=== PATIENT | male | born 1990 | race African-American/Black ===

== ENCOUNTER 2019-01-24 08:40 | Inpatient (IN) | payer MEDICARE, OTHER ==
[~2019-01-24] VITALS: Ht 175.3 cm; Wt 82.3 kg
[2019-01-24 09:30] LABS: BASOPHILS % 0.2 % (0.0-2.0); EOSINOPHILS % 0.1 % (0.0-5.0); HEMATOCRIT. 39.5 % (42.0-52.0); LYMPHOCYTES % 10.6 % (20.0-50.0); MEAN CORPUSCULAR HEMOGLOBIN 26.6 pg (28.0-32.0); MEAN CORPUSCULAR VOLUME 81.1 fL (80.0-94.0); MEAN PLATELET VOLUME 7.5 fl (7.4-10.4); MONOCYTES % 6.8 % (2.0-8.0); NEUTROPHILS % 82.3 % (40.0-76.0); PLATELET 264 x1000/uL (130-400); RED BLOOD CELL COUNT 4.88 mill/uL (4.7-6.1); RED CELL DISTRIBUTION WIDTH 15.2 % (11.6-14.6)
[2019-01-24 09:33] LABS: CHLORIDE 101 mEq/L (98-107)
[2019-01-24 10:43] LABS: BG BASE EXCESS 4.4 mmol/L (-2.0-2.0); BG CARBOXYHEMOGLOBIN 0.3 % (0.5-1.5); BG DEOXYHEMOGLOBIN 10.8 % (0.0-5.0); BG FRACTION INSPIRED OXYGEN 32; BG HCO3 ACT 29.3 mmol/L (22.0-26.0); BG METHEMOGLOBIN 0.6 % (0.0-1.5); BG OXYGEN SATURATION 89.1 % (92.0-98.5); BG OXYHEMOGLOBIN 88.3 % (94.0-97.0); BG PCO2 45.1 mmHg (35.0-45.0); BG PH 7.431 (7.350-7.450); BG SAMPLE SITE RIGHT RADIAL; BG TOTAL HEMOGLOBIN 13.4 g/dL (12.0-18.0); BG VENT MODE NASAL CANNULA
[2019-01-24] MEDS ORDERED: LEVOFLOXACIN 750MG PREMIX 150 ML IV ONE (12:15)
[2019-01-24] MEDS ORDERED: IOHEXOL-350 100 ML BOTTLE ONE (12:32)
[2019-01-24] MEDS ORDERED: IPRATROPIUM/ALBUTEROL 0.5-3(2.5)MG/3ML NEB INH PRN (14:30)
[2019-01-24] MEDS ORDERED: TRAMADOL 50MG TABLET PO PRN (14:30)
[2019-01-24] MEDS ORDERED: GUAIFENESIN 200MG/10ML SUGAR FREE UDC PO PRN (14:30)
[2019-01-24] MEDS ORDERED: DOCUSATE SODIUM 100MG CAPSULE PO PRN (14:30)
[2019-01-24] MEDS ORDERED: CLONIDINE 0.1MG TABLET PO PRN (14:30)
[2019-01-24] MEDS ORDERED: ZOLPIDEM TARTRATE 5MG TABLET PO PRN (14:30)
[2019-01-24] MEDS ORDERED: MORPHINE SULFATE 4 MG/ML CPJ (NOT FOR IM USE) IV PRN (14:30)
[2019-01-24] MEDS ORDERED: NITROGLYCERIN 0.4MG TABLET SL SL PRN (14:30)
[2019-01-24] MEDS ORDERED: MAGNESIUM/ALUMINUM HYDROXIDE/SIMETHICONE 30ML UDC PO PRN (14:30)
[2019-01-24] MEDS ORDERED: ACETAMINOPHEN 325MG TABLET PO PRN (14:30)
[2019-01-24] MEDS ORDERED: ONDANSETRON HCL 4MG/2ML INJ IV PRN (14:30)
[2019-01-24 15:56] LABS: FOLIC ACID (FOLATE) SERUM 5.5 ng/mL (>5.38)
[2019-01-24] MEDS ORDERED: VANCOMYCIN 1,250 MG in DEXT 5% WATER 250 ML IV SCH (18:00)
[2019-01-24 20:00] VITALS: BP 119/61
[2019-01-24] MEDS: ENOXAPARIN 40MG/0.4ML SYR SUBCUT SCH (20:58)
[2019-01-24] MEDS: FAMOTIDINE 20MG TABLET PO SCH (20:59)
[2019-01-24] MEDS: ASCORBIC ACID 500 MG TABLET PO SCH (20:59)
[2019-01-24] MEDS: GUAIFENESIN/DM 600MG/30MG ER TAB 12HR PO SCH (20:59)
[2019-01-24 22:00] VITALS: BP 116/64
[2019-01-24] MEDS: PIPERACILLIN/TAZ 3.375G PREMIX 50 ML IV SCH (22:54)
[2019-01-25] VITALS (11 sets, daily range): BP systolic 90–132; BP diastolic 51–99
[2019-01-25 00:17] LABS: CREATINE KINASE 426 IU/L (39-308)
[2019-01-25 00:18] LABS: CREATINE KINASE MB FRACTION 30.8 ng/mL (0.5-3.6)
[2019-01-25] MEDS: IPRATROPIUM/ALBUTEROL 0.5-3(2.5)MG/3ML NEB HHN SCH ×6 (00:24→19:49)
[2019-01-25] MEDS: VANCOMYCIN 1 G PREMIX 200 ML IV SCH ×2 (04:11→14:09)
[2019-01-25] MEDS: PIPERACILLIN/TAZ 3.375G PREMIX 50 ML IV SCH ×3 (06:21→21:40)
[2019-01-25 07:41] LABS: CREATINE KINASE 236 IU/L (39-308)
[2019-01-25 07:42] LABS: CREATINE KINASE MB FRACTION 18.5 ng/mL (0.5-3.6)
[2019-01-25] MEDS: FAMOTIDINE 20MG TABLET PO SCH ×2 (09:35→21:40)
[2019-01-25] MEDS: GUAIFENESIN/DM 600MG/30MG ER TAB 12HR PO SCH ×2 (09:35→21:40)
[2019-01-25] MEDS: ASCORBIC ACID 500 MG TABLET PO SCH ×2 (09:35→21:40)
[2019-01-25] MEDS: ZINC SULFATE 220 MG ( 50 ) CAPSULE PO SCH (09:35)
[2019-01-25] MEDS: ACETYLCYSTEINE 100MG/ML 10% VIAL 4ML INH SCH ×2 (15:16→23:59)
[2019-01-25] MEDS: ENOXAPARIN 40MG/0.4ML SYR SUBCUT SCH (17:24)
[2019-01-26] VITALS (12 sets, daily range): BP systolic 91–136; BP diastolic 47–94
[2019-01-26] MEDS: IPRATROPIUM/ALBUTEROL 0.5-3(2.5)MG/3ML NEB HHN SCH ×5 (00:01→15:45)
[2019-01-26] MEDS: PIPERACILLIN/TAZ 3.375G PREMIX 50 ML IV SCH ×3 (05:26→21:21)
[2019-01-26] MEDS ORDERED: VANCOMYCIN 1 G PREMIX 200 ML IV PRN (06:00)
[2019-01-26 06:05] LABS: BASOPHILS % 0.2 % (0.0-2.0); EOSINOPHILS % 0.1 % (0.0-5.0); HEMATOCRIT. 33.2 % (42.0-52.0); LYMPHOCYTES % 8.3 % (20.0-50.0); MEAN CORPUSCULAR HEMOGLOBIN 26.4 pg (28.0-32.0); MEAN CORPUSCULAR VOLUME 79.8 fL (80.0-94.0); MEAN PLATELET VOLUME 7.6 fl (7.4-10.4); MONOCYTES % 8.5 % (2.0-8.0); NEUTROPHILS % 82.9 % (40.0-76.0); PLATELET 268 x1000/uL (130-400); RED BLOOD CELL COUNT 4.17 mill/uL (4.7-6.1); RED CELL DISTRIBUTION WIDTH 15.3 % (11.6-14.6)
[2019-01-26 06:23] LABS: CHLORIDE 99 mEq/L (98-107)
[2019-01-26] MEDS: ACETYLCYSTEINE 100MG/ML 10% VIAL 4ML INH SCH ×2 (07:54→15:46)
[2019-01-26] MEDS: GUAIFENESIN/DM 600MG/30MG ER TAB 12HR PO SCH ×2 (09:59→21:20)
[2019-01-26] MEDS: ASCORBIC ACID 500 MG TABLET PO SCH ×2 (09:59→21:20)
[2019-01-26] MEDS: ZINC SULFATE 220 MG ( 50 ) CAPSULE PO SCH (09:59)
[2019-01-26] MEDS: FAMOTIDINE 20MG TABLET PO SCH ×2 (09:59→21:20)
[2019-01-26] MEDS ORDERED: BARIUM SULFATE 176 GM SUSP.RECON ONE (13:43)
[2019-01-26] MEDS ORDERED: SODIUM CHLORIDE 0.9% 1000ML BAG (SEPSIS BOLUS) IV ONE (15:30)
[2019-01-26] MEDS: VANCOMYCIN 750 MG PREMIX 150 ML IV SCH (16:42)
[2019-01-26] MEDS: ENOXAPARIN 40MG/0.4ML SYR SUBCUT SCH (18:55)
[2019-01-26] MEDS: KETOROLAC 15MG/ML VIAL IV PRN (20:07)
[2019-01-27] VITALS (17 sets, daily range): BP systolic 110–144; BP diastolic 53–92
[2019-01-27] MEDS: IPRATROPIUM/ALBUTEROL 0.5-3(2.5)MG/3ML NEB HHN SCH ×4 (01:36→20:10)
[2019-01-27] MEDS: ACETYLCYSTEINE 100MG/ML 10% VIAL 4ML INH SCH ×4 (01:37→20:10)
[2019-01-27] MEDS: VANCOMYCIN 750 MG PREMIX 150 ML IV SCH ×2 (02:03→13:15)
[2019-01-27] MEDS: PIPERACILLIN/TAZ 3.375G PREMIX 50 ML IV SCH ×3 (05:39→21:06)
[2019-01-27 07:09] LABS: CHLORIDE 104 mEq/L (98-107)
[2019-01-27] MEDS: GUAIFENESIN/DM 600MG/30MG ER TAB 12HR PO SCH ×2 (08:14→20:49)
[2019-01-27] MEDS: FAMOTIDINE 20MG TABLET PO SCH ×2 (08:14→20:49)
[2019-01-27] MEDS: ZINC SULFATE 220 MG ( 50 ) CAPSULE PO SCH (08:14)
[2019-01-27] MEDS: ASCORBIC ACID 500 MG TABLET PO SCH ×2 (08:14→20:49)
[2019-01-27] MEDS: ENOXAPARIN 40MG/0.4ML SYR SUBCUT SCH (17:11)
[2019-01-27] MEDS: VANCOMYCIN 1 G PREMIX 200 ML IV SCH (23:30)
[2019-01-28] VITALS (12 sets, daily range): BP systolic 112–146; BP diastolic 75–96
[2019-01-28] MEDS: IPRATROPIUM/ALBUTEROL 0.5-3(2.5)MG/3ML NEB HHN SCH ×5 (00:05→16:52)
[2019-01-28] MEDS: ACETYLCYSTEINE 100MG/ML 10% VIAL 4ML INH SCH ×3 (00:29→16:52)
[2019-01-28] MEDS: PIPERACILLIN/TAZ 3.375G PREMIX 50 ML IV SCH ×3 (05:31→21:31)
[2019-01-28] MEDS: ASCORBIC ACID 500 MG TABLET PO SCH ×2 (09:17→21:30)
[2019-01-28] MEDS: KETOROLAC 15MG/ML VIAL IV PRN (09:17)
[2019-01-28] MEDS: ZINC SULFATE 220 MG ( 50 ) CAPSULE PO SCH (09:17)
[2019-01-28] MEDS: GUAIFENESIN/DM 600MG/30MG ER TAB 12HR PO SCH ×2 (09:17→21:30)
[2019-01-28] MEDS: FAMOTIDINE 20MG TABLET PO SCH ×2 (09:17→21:30)
[2019-01-28] MEDS: ENOXAPARIN 40MG/0.4ML SYR SUBCUT SCH (17:45)
[2019-01-28] MEDS: VANCOMYCIN 1 G PREMIX 200 ML IV SCH (23:45)
[2019-01-29] VITALS (12 sets, daily range): BP systolic 106–148; BP diastolic 47–96
[2019-01-29] MEDS: IPRATROPIUM/ALBUTEROL 0.5-3(2.5)MG/3ML NEB HHN SCH ×6 (00:29→20:45)
[2019-01-29] MEDS: PIPERACILLIN/TAZ 3.375G PREMIX 50 ML IV SCH ×3 (05:55→20:52)
[2019-01-29] MEDS: ASCORBIC ACID 500 MG TABLET PO SCH ×2 (08:57→20:51)
[2019-01-29] MEDS: ZINC SULFATE 220 MG ( 50 ) CAPSULE PO SCH (08:57)
[2019-01-29] MEDS: GUAIFENESIN/DM 600MG/30MG ER TAB 12HR PO SCH ×2 (08:57→20:51)
[2019-01-29] MEDS: FAMOTIDINE 20MG TABLET PO SCH ×2 (08:57→20:51)
[2019-01-29] MEDS: ACETYLCYSTEINE 100MG/ML 10% VIAL 4ML INH SCH ×2 (09:10→17:04)
[2019-01-29] MEDS: ENOXAPARIN 40MG/0.4ML SYR SUBCUT SCH (18:21)
[2019-01-30] VITALS (11 sets, daily range): BP systolic 117–154; BP diastolic 65–92
[2019-01-30] MEDS: VANCOMYCIN 1 G PREMIX 200 ML IV SCH (00:03)
[2019-01-30] MEDS: ACETYLCYSTEINE 100MG/ML 10% VIAL 4ML INH SCH ×3 (00:34→16:06)
[2019-01-30] MEDS: IPRATROPIUM/ALBUTEROL 0.5-3(2.5)MG/3ML NEB HHN SCH ×5 (00:34→16:07)
[2019-01-30] MEDS: PIPERACILLIN/TAZ 3.375G PREMIX 50 ML IV SCH ×2 (06:38→15:57)
[2019-01-30 07:06] LABS: BASOPHILS % 0.4 % (0.0-2.0); EOSINOPHILS % 1.1 % (0.0-5.0); HEMATOCRIT. 37.1 % (42.0-52.0); HEMOGLOBIN. 12.2 g/dL (14.0-18.0); LYMPHOCYTES % 19.8 % (20.0-50.0); MEAN CORPUSCULAR HEMOGLOBIN 26.3 pg (28.0-32.0); MEAN CORPUSCULAR VOLUME 80.1 fL (80.0-94.0); MEAN PLATELET VOLUME 6.7 fl (7.4-10.4); MONOCYTES % 6.7 % (2.0-8.0); PLATELET 298 x1000/uL (130-400); RED BLOOD CELL COUNT 4.63 mill/uL (4.7-6.1); RED CELL DISTRIBUTION WIDTH 15.3 % (11.6-14.6)
[2019-01-30 07:32] LABS: CHLORIDE 106 mEq/L (98-107)
[2019-01-30] MEDS: FAMOTIDINE 20MG TABLET PO SCH (08:38)
[2019-01-30] MEDS: GUAIFENESIN/DM 600MG/30MG ER TAB 12HR PO SCH (08:38)
[2019-01-30] MEDS: ZINC SULFATE 220 MG ( 50 ) CAPSULE PO SCH (08:38)
[2019-01-30] MEDS: ASCORBIC ACID 500 MG TABLET PO SCH (08:38)
[2019-01-30] MEDS ORDERED: LEVO250T58 PO (19:41)
[2019-01-30] MEDS ORDERED: PROSOL IH (19:42)
[2019-01-30] MEDS ORDERED: METR250T36 PO (19:42)
== END 2019-01-30 17:18 | disposition home or self-care (01) | DRG 871 ==
LOC: ER 08:40 → SUPCPDRO 14:23 → 5EST 15:00 → ENRESERV 15:53 → 5EST 18:13
PROVIDERS: ADMIT Internal Medicine; ATTEND Internal Medicine
DX: A41.9 Sepsis, unspecified organism (principal); J69.0 Pneumonitis due to inhalation of food and vomit; J96.00 Acute respiratory failure, unspecified whether with hypoxia or hypercapnia; E44.0 Moderate protein-calorie malnutrition; J90 Pleural effusion, not elsewhere classified; D63.8 Anemia in other chronic diseases classified elsewhere; E86.0 Dehydration; G71.00 Muscular dystrophy, unspecified; R13.10 Dysphagia, unspecified; Z99.3 Dependence on wheelchair; Z68.26 Body mass index [BMI] 26.0-26.9, adult
CPT/HCPCS: 36415; 36600; 71045; 71275; 74230; 80048; 80061; 80202; 82375; 82550; 82553; 82607; 82746; 82805; 83036; 83540; 83550; 83880; 84484; 85379; 87804; 92610; 92611; 93005; 93306; 93970; 93971; 94640; 94667; 96365; 96366; 97162; 99285; J1650; J1885; J1956; J2405; J2543; J3370; J7050; J7060; J7608; J7620; Q9967

== ENCOUNTER 2019-01-30 19:34 | Inpatient (IN) | payer MEDICARE, OTHER ==
[~2019-01-30] VITALS: Ht 182.9 cm; Wt 99.9 kg
[2019-01-30] MEDS ORDERED: LEVO250T58 PO (19:41)
[2019-01-30] MEDS ORDERED: PROSOL IH (19:42)
[2019-01-30] MEDS ORDERED: METR250T36 PO (19:42)
[2019-01-30] MEDS ORDERED: METHYLPREDNISOLONE SOD SUCC 125 MG/2 ML VIAL IV STA (23:20)
[2019-01-30] MEDS ORDERED: SODIUM CHLORIDE 0.9% 1,000 ML IV ONE (23:20)
[2019-01-30] MEDS ORDERED: LEVOFLOXACIN 750MG PREMIX 150 ML IV ONE (23:30)
[2019-01-30] MEDS ORDERED: IPRATROPIUM/ALBUTEROL 0.5-3(2.5)MG/3ML NEB HHN ONE (23:30)
[2019-01-30 23:55] LABS: BG BASE EXCESS 4.7 mmol/L (-2.0-2.0); BG CARBOXYHEMOGLOBIN 0.7 % (0.5-1.5); BG DEOXYHEMOGLOBIN 6.6 % (0.0-5.0); BG FRACTION INSPIRED OXYGEN 21; BG METHEMOGLOBIN 0.5 % (0.0-1.5); BG OXYGEN SATURATION 93.3 % (92.0-98.5); BG OXYHEMOGLOBIN 92.2 % (94.0-97.0); BG PCO2 37.1 mmHg (35.0-45.0); BG PH 7.495 (7.350-7.450); BG PO2 64.2 mmHg (75.0-100.0); BG SAMPLE SITE RIGHT RADIAL; BG TOTAL HEMOGLOBIN 14.4 g/dL (12.0-18.0); BG VENT MODE ROOM AIR
[2019-01-31 01:07] LABS: BASOPHILS % 0.5 % (0.0-2.0); EOSINOPHILS % 0.6 % (0.0-5.0); LYMPHOCYTES % 10.2 % (20.0-50.0); MEAN CORPUSCULAR HEMOGLOBIN 26.1 pg (28.0-32.0); MEAN CORPUSCULAR VOLUME 80.6 fL (80.0-94.0); MEAN PLATELET VOLUME 6.7 fl (7.4-10.4); MONOCYTES % 6.1 % (2.0-8.0); NEUTROPHILS % 82.6 % (40.0-76.0); PLATELET 352 x1000/uL (130-400); RED BLOOD CELL COUNT 4.22 mill/uL (4.7-6.1); RED CELL DISTRIBUTION WIDTH 15.3 % (11.6-14.6)
[2019-01-31 01:15] LABS: INR 1.1; PROTHROMBIN TIME 10.7 sec (9.1-11.1)
[2019-01-31 01:26] LABS: CHLORIDE 107 mEq/L (98-107)
[2019-01-31 02:56] LABS: CLARITY URINE CLOUDY (CLEAR); COLOR URINE YELLOW (YELLOW); KETONES URINE NEGATIVE (NEGATIVE); LEUKOCYTE ESTERASE URINE NEGATIVE (NEGATIVE); NITRITE URINE NEGATIVE (NEGATIVE); OCCULT BLOOD URINE NEGATIVE (NEGATIVE); PH URINE 5.5 (4.5-8.0); PROTEIN URINE NEGATIVE (NEGATIVE); SPECIFIC GRAVITY URINE 1.013 (1.005-1.030); UROBILINOGEN URINE 0.2 E.U./dL (0.2-1.0)
[2019-01-31] MEDS ORDERED: TRAMADOL 50MG TABLET PO PRN (10:15)
[2019-01-31] MEDS ORDERED: PIPERACILLIN/TAZ 3.375G PREMIX 50 ML IV SCH ×3 (10:15→19:00)
[2019-01-31] MEDS ORDERED: MAGNESIUM/ALUMINUM HYDROXIDE/SIMETHICONE 30ML UDC PO PRN (10:15)
[2019-01-31] MEDS ORDERED: ONDANSETRON HCL 4MG/2ML INJ IV PRN (10:15)
[2019-01-31] MEDS ORDERED: DOCUSATE SODIUM 100MG CAPSULE PO PRN (10:15)
[2019-01-31] MEDS ORDERED: ZOLPIDEM TARTRATE 5MG TABLET PO PRN (10:15)
[2019-01-31] MEDS ORDERED: ACETAMINOPHEN 325MG TABLET PO PRN (10:15)
[2019-01-31] MEDS ORDERED: IPRATROPIUM/ALBUTEROL 0.5-3(2.5)MG/3ML NEB INH PRN (10:15)
[2019-01-31] MEDS ORDERED: GUAIFENESIN 200MG/10ML SUGAR FREE UDC PO PRN (10:15)
[2019-01-31] MEDS: GUAIFENESIN/DM 600MG/30MG ER TAB 12HR PO SCH ×3 (11:30→19:06)
[2019-01-31] MEDS: ENOXAPARIN 40MG/0.4ML SYR SUBCUT SCH (11:50)
[2019-01-31] MEDS: FAMOTIDINE 20MG TABLET PO SCH ×2 (11:52→23:58)
[2019-01-31] MEDS: SODIUM CHLORIDE 0.9% 1,000 ML IV SCH ×2 (13:14→23:59)
[2019-01-31 16:09] LABS: CREATINE KINASE 680 IU/L (39-308)
[2019-01-31 16:10] LABS: CREATINE KINASE MB FRACTION 19.6 ng/mL (0.5-3.6)
[2019-01-31] MEDS: IPRATROPIUM/ALBUTEROL 0.5-3(2.5)MG/3ML NEB HHN SCH (21:24)
[2019-01-31 22:35] VITALS: BP_SYST 157; BP_SYST 57; BP_DIAS 86
[2019-01-31] MEDS: GUAIFENESIN 600MG ER TABLET PO SCH (23:58)
[2019-01-31] MEDS: ASCORBIC ACID 500 MG TABLET PO SCH (23:59)
[2019-01-31] MEDS: CLONIDINE 0.1MG TABLET PO PRN (23:59)
[2019-02-01] VITALS (7 sets, daily range): BP systolic 100–159; BP diastolic 65–95
[2019-02-01 01:00] LABS: CREATINE KINASE MB FRACTION 20.6 ng/mL (0.5-3.6)
[2019-02-01] MEDS: IPRATROPIUM/ALBUTEROL 0.5-3(2.5)MG/3ML NEB HHN SCH ×6 (01:07→21:16)
[2019-02-01] MEDS: PIPERACILLIN/TAZ 3.375G PREMIX 50 ML IV SCH ×4 (01:23→23:05)
[2019-02-01] MEDS: GUAIFENESIN 600MG ER TABLET PO SCH ×2 (09:13→20:24)
[2019-02-01] MEDS: FAMOTIDINE 20MG TABLET PO SCH ×2 (09:13→20:24)
[2019-02-01] MEDS: ZINC SULFATE 220 MG ( 50 ) CAPSULE PO SCH (09:13)
[2019-02-01] MEDS: ASCORBIC ACID 500 MG TABLET PO SCH ×2 (09:13→20:24)
[2019-02-01] MEDS: ENOXAPARIN 40MG/0.4ML SYR SUBCUT SCH (09:13)
[2019-02-01] MEDS ORDERED: VANCOMYCIN 1500MG in DEXTROSE 5% WATER 250ML IV SCH (14:00)
[2019-02-01] MEDS: SODIUM CHLORIDE 0.9% 1,000 ML IV SCH (14:27)
[2019-02-01] MEDS: CLONIDINE 0.1MG TABLET PO PRN (20:24)
[2019-02-02] MEDS: IPRATROPIUM/ALBUTEROL 0.5-3(2.5)MG/3ML NEB HHN SCH ×6 (00:59→21:21)
[2019-02-02 03:50] VITALS: BP 127/84
[2019-02-02] MEDS: SODIUM CHLORIDE 0.9% 1,000 ML IV SCH ×2 (05:48→20:28)
[2019-02-02 08:00] VITALS: BP 136/90
[2019-02-02] MEDS: PIPERACILLIN/TAZ 3.375G PREMIX 50 ML IV SCH ×3 (08:00→23:43)
[2019-02-02] MEDS: ASCORBIC ACID 500 MG TABLET PO SCH ×2 (09:21→20:23)
[2019-02-02] MEDS: FAMOTIDINE 20MG TABLET PO SCH ×2 (09:21→20:23)
[2019-02-02] MEDS: ZINC SULFATE 220 MG ( 50 ) CAPSULE PO SCH (09:21)
[2019-02-02] MEDS: GUAIFENESIN 600MG ER TABLET PO SCH ×2 (09:21→20:23)
[2019-02-02] MEDS: ENOXAPARIN 40MG/0.4ML SYR SUBCUT SCH (09:21)
[2019-02-02] MEDS: VANCOMYCIN 1 G PREMIX 200 ML IV SCH (09:24)
[2019-02-02 12:00] VITALS: BP 138/104
[2019-02-02 16:06] VITALS: BP 158/93
[2019-02-02 20:00] VITALS: BP 159/96
[2019-02-03] VITALS: BP 159/92
[2019-02-03] MEDS: IPRATROPIUM/ALBUTEROL 0.5-3(2.5)MG/3ML NEB HHN SCH ×6 (01:05→21:05)
[2019-02-03 04:00] VITALS: BP 150/90
[2019-02-03 08:00] VITALS: BP 145/82
[2019-02-03] MEDS: ENOXAPARIN 40MG/0.4ML SYR SUBCUT SCH (08:00)
[2019-02-03] MEDS: GUAIFENESIN 600MG ER TABLET PO SCH ×2 (08:01→09:37)
[2019-02-03] MEDS: ASCORBIC ACID 500 MG TABLET PO SCH ×2 (08:01→09:37)
[2019-02-03] MEDS: PIPERACILLIN/TAZ 3.375G PREMIX 50 ML IV SCH ×3 (08:01→23:03)
[2019-02-03] MEDS: FAMOTIDINE 20MG TABLET PO SCH ×2 (08:04→09:37)
[2019-02-03] MEDS: ZINC SULFATE 220 MG ( 50 ) CAPSULE PO SCH ×2 (08:04→09:38)
[2019-02-03] MEDS: VANCOMYCIN 1 G PREMIX 200 ML IV SCH (09:35)
[2019-02-03] MEDS: SODIUM CHLORIDE 0.9% 1,000 ML IV SCH (11:45)
[2019-02-03 12:00] VITALS: BP 146/83
[2019-02-03] MEDS ORDERED: DIATR MEGLU/DIATRIZOATE SOLN 30ML ONE (16:11)
[2019-02-03 20:00] VITALS: BP 132/72
[2019-02-04] VITALS: BP 127/65
[2019-02-04] MEDS: IPRATROPIUM/ALBUTEROL 0.5-3(2.5)MG/3ML NEB HHN SCH ×6 (00:44→21:59)
[2019-02-04] MEDS: SODIUM CHLORIDE 0.9% 1,000 ML IV SCH ×2 (03:20→20:32)
[2019-02-04 04:00] VITALS: BP 124/74
[2019-02-04 07:02] LABS: HEMATOCRIT. 34.7 % (42.0-52.0); HEMOGLOBIN. 11.3 g/dL (14.0-18.0); MEAN CORPUSCULAR VOLUME 81.2 fL (80.0-94.0); RED BLOOD CELL COUNT 4.28 mill/uL (4.7-6.1)
[2019-02-04 07:03] LABS: BASOPHILS % 0.3 % (0.0-2.0); EOSINOPHILS % 0.3 % (0.0-5.0); MEAN CORPUSCULAR HEMOGLOBIN 26.4 pg (28.0-32.0); MEAN PLATELET VOLUME 7.5 fl (7.4-10.4); MONOCYTES % 5.8 % (2.0-8.0); NEUTROPHILS % 84.6 % (40.0-76.0); PLATELET 468 x1000/uL (130-400); RED CELL DISTRIBUTION WIDTH 15.5 % (11.6-14.6)
[2019-02-04 07:07] LABS: CHLORIDE 120 mEq/L (98-107)
[2019-02-04] MEDS: PIPERACILLIN/TAZ 3.375G PREMIX 50 ML IV SCH ×3 (08:16→20:32)
[2019-02-04 08:20] VITALS: BP 123/74
[2019-02-04] MEDS: VANCOMYCIN 1 G PREMIX 200 ML IV SCH (09:04)
[2019-02-04] MEDS: FAMOTIDINE 20MG TABLET PO SCH ×2 (09:06→20:31)
[2019-02-04] MEDS: ENOXAPARIN 40MG/0.4ML SYR SUBCUT SCH (09:06)
[2019-02-04] MEDS: GUAIFENESIN 600MG ER TABLET PO SCH ×2 (09:06→20:31)
[2019-02-04] MEDS: ASCORBIC ACID 500 MG TABLET PO SCH ×2 (09:06→20:31)
[2019-02-04 12:00] VITALS: BP 144/90
[2019-02-04] MEDS: FLUCONAZOLE 100MG TABLET PO SCH (15:01)
[2019-02-04 16:00] VITALS: BP 128/83
[2019-02-04 20:00] VITALS: BP 134/84
[2019-02-05] VITALS: BP 131/79
[2019-02-05] MEDS: PIPERACILLIN/TAZ 3.375G PREMIX 50 ML IV SCH ×4 (02:33→22:48)
[2019-02-05 04:00] VITALS: BP 123/71
[2019-02-05 08:00] VITALS: BP 145/94
[2019-02-05] MEDS: IPRATROPIUM/ALBUTEROL 0.5-3(2.5)MG/3ML NEB HHN SCH ×4 (08:58→21:10)
[2019-02-05] MEDS ORDERED: VANCOMYCIN 1500MG in DEXTROSE 5% WATER 250ML IV SCH (09:00)
[2019-02-05] MEDS: GUAIFENESIN 600MG ER TABLET PO SCH ×2 (09:47→22:48)
[2019-02-05] MEDS: ASCORBIC ACID 500 MG TABLET PO SCH ×2 (09:47→22:48)
[2019-02-05] MEDS: FAMOTIDINE 20MG TABLET PO SCH ×2 (09:47→22:49)
[2019-02-05] MEDS: ZINC SULFATE 220 MG ( 50 ) CAPSULE PO SCH (09:48)
[2019-02-05] MEDS: ENOXAPARIN 40MG/0.4ML SYR SUBCUT SCH (09:48)
[2019-02-05] MEDS: FLUCONAZOLE 100MG TABLET PO SCH (09:50)
[2019-02-05 12:00] VITALS: BP 145/95
[2019-02-05] MEDS: CLONIDINE 0.1MG TABLET PO PRN (12:37)
[2019-02-05] MEDS: SODIUM CHLORIDE 0.9% 1,000 ML IV SCH (12:37)
[2019-02-05 16:00] VITALS: BP 138/88
[2019-02-05 20:58] VITALS: BP 146/98
[2019-02-06 00:29] VITALS: BP 135/78
[2019-02-06] MEDS: IPRATROPIUM/ALBUTEROL 0.5-3(2.5)MG/3ML NEB HHN SCH ×6 (00:31→20:44)
[2019-02-06] MEDS: SODIUM CHLORIDE 0.9% 1,000 ML IV SCH ×2 (01:52→18:59)
[2019-02-06 04:00] VITALS: BP 129/84
[2019-02-06] MEDS: PIPERACILLIN/TAZ 3.375G PREMIX 50 ML IV SCH ×4 (05:15→20:47)
[2019-02-06 08:00] VITALS: BP 134/84
[2019-02-06] MEDS: ENOXAPARIN 40MG/0.4ML SYR SUBCUT SCH (08:02)
[2019-02-06] MEDS: GUAIFENESIN 600MG ER TABLET PO SCH ×2 (08:03→20:47)
[2019-02-06] MEDS: ASCORBIC ACID 500 MG TABLET PO SCH ×2 (08:03→20:47)
[2019-02-06] MEDS: ZINC SULFATE 220 MG ( 50 ) CAPSULE PO SCH (08:03)
[2019-02-06] MEDS: FAMOTIDINE 20MG TABLET PO SCH ×2 (08:03→20:47)
[2019-02-06] MEDS: FLUCONAZOLE 100MG TABLET PO SCH (08:03)
[2019-02-06 12:00] VITALS: BP 143/87
[2019-02-06 16:00] VITALS: BP 142/87
[2019-02-06 20:00] VITALS: BP 148/89
[2019-02-07] VITALS (11 sets, daily range): BP systolic 113–166; BP diastolic 69–105
[2019-02-07] MEDS: IPRATROPIUM/ALBUTEROL 0.5-3(2.5)MG/3ML NEB HHN SCH ×6 (00:38→20:36)
[2019-02-07] MEDS: PIPERACILLIN/TAZ 3.375G PREMIX 50 ML IV SCH ×4 (03:09→21:38)
[2019-02-07] MEDS: SODIUM CHLORIDE 0.9% 1,000 ML IV SCH (05:45)
[2019-02-07] MEDS: FAMOTIDINE 20MG TABLET PO SCH ×2 (08:01→21:38)
[2019-02-07] MEDS: ZINC SULFATE 220 MG ( 50 ) CAPSULE PO SCH (08:01)
[2019-02-07] MEDS: FLUCONAZOLE 100MG TABLET PO SCH (08:01)
[2019-02-07] MEDS: GUAIFENESIN 600MG ER TABLET PO SCH ×2 (08:01→21:38)
[2019-02-07] MEDS: ASCORBIC ACID 500 MG TABLET PO SCH ×2 (08:01→21:38)
[2019-02-07] MEDS: ENOXAPARIN 40MG/0.4ML SYR SUBCUT SCH (08:02)
[2019-02-07 09:57] LABS: EOSINOPHILS % 0.4 % (0.0-5.0); HEMATOCRIT. 32.9 % (42.0-52.0); HEMOGLOBIN. 10.7 g/dL (14.0-18.0); LYMPHOCYTES % 12.8 % (20.0-50.0); MEAN CORPUSCULAR HEMOGLOBIN 26.3 pg (28.0-32.0); MEAN CORPUSCULAR VOLUME 80.7 fL (80.0-94.0); MEAN PLATELET VOLUME 7.4 fl (7.4-10.4); MONOCYTES % 6.3 % (2.0-8.0); NEUTROPHILS % 79.5 % (40.0-76.0); PLATELET 397 x1000/uL (130-400); RED BLOOD CELL COUNT 4.07 mill/uL (4.7-6.1); RED CELL DISTRIBUTION WIDTH 15.4 % (11.6-14.6)
[2019-02-07 10:04] LABS: CHLORIDE 122 mEq/L (98-107)
[2019-02-07] MEDS ORDERED: SODIUM CHLORIDE 10% FOR INH 15ML VIAL NEB INH SCH (10:30)
[2019-02-07 10:45] LABS: BG BASE EXCESS 3.5 mmol/L (-2.0-2.0); BG CARBOXYHEMOGLOBIN 0.3 % (0.5-1.5); BG DEOXYHEMOGLOBIN 1.8 % (0.0-5.0); BG FRACTION INSPIRED OXYGEN 28; BG HCO3 ACT 27.7 mmol/L (22.0-26.0); BG METHEMOGLOBIN 0.4 % (0.0-1.5); BG OXYGEN SATURATION 98.2 % (92.0-98.5); BG OXYHEMOGLOBIN 97.5 % (94.0-97.0); BG PCO2 40.6 mmHg (35.0-45.0); BG PH 7.452 (7.350-7.450); BG PO2 131.2 mmHg (75.0-100.0); BG SAMPLE SITE LEFT RADIAL; BG TOTAL HEMOGLOBIN 11.1 g/dL (12.0-18.0); BG VENT MODE ROOM AIR
[2019-02-07] MEDS ORDERED: VANCOMYCIN 1500MG in DEXTROSE 5% WATER 250ML IV NR (11:00)
[2019-02-07] MEDS ORDERED: POTASSIUM CHLORIDE 20MEQ/PACKET PO NR (13:15)
[2019-02-07] MEDS: CLONIDINE 0.1MG TABLET PO PRN (14:49)
[2019-02-07] MEDS ORDERED: POTASSIUM CHLORIDE INJ 40 MEQ in DEXT 5% WATER 250 ML IV ONE (15:00)
[2019-02-07 19:06] LABS: T4 FREE 1.42 ng/dL (0.76-1.46)
[2019-02-07 19:37] LABS: VITAMIN B12 SERUM >2000 pg/mL pg/mL (211-911)
[2019-02-08] VITALS (37 sets, daily range): BP systolic 99–162; BP diastolic 49–114
[2019-02-08] MEDS: IPRATROPIUM/ALBUTEROL 0.5-3(2.5)MG/3ML NEB HHN SCH ×6 (00:18→20:25)
[2019-02-08] MEDS: ZINC SULFATE 220 MG ( 50 ) CAPSULE PO SCH (10:12)
[2019-02-08] MEDS: GUAIFENESIN 600MG ER TABLET PO SCH (10:12)
[2019-02-08] MEDS: ASCORBIC ACID 500 MG TABLET PO SCH ×2 (10:12→21:07)
[2019-02-08] MEDS: ENOXAPARIN 40MG/0.4ML SYR SUBCUT SCH (10:13)
[2019-02-08] MEDS: FAMOTIDINE 20MG TABLET PO SCH ×2 (10:13→21:07)
[2019-02-08] MEDS: FLUCONAZOLE 100MG TABLET PO SCH (10:13)
[2019-02-08] MEDS ORDERED: POTASSIUM CHLORIDE 20MEQ/PACKET PO ONE (10:15)
[2019-02-08] MEDS: DEXTROSE 5% WATER 1,000 ML IV SCH ×2 (10:26→17:03)
[2019-02-08 10:45] LABS: BG CARBOXYHEMOGLOBIN 0.3 % (0.5-1.5); BG FRACTION INSPIRED OXYGEN 40; BG HCO3 ACT 26.4 mmol/L (22.0-26.0); BG METHEMOGLOBIN 0.2 % (0.0-1.5); BG OXYGEN SATURATION 83.9 % (92.0-98.5); BG OXYHEMOGLOBIN 83.5 % (94.0-97.0); BG PCO2 40.6 mmHg (35.0-45.0); BG PH 7.431 (7.350-7.450); BG PO2 47.5 mmHg (75.0-100.0); BG SAMPLE SITE RIGHT RADIAL; BG TOTAL HEMOGLOBIN 11.8 g/dL (12.0-18.0); BG VENT MODE NASAL CANNULA
[2019-02-08 13:23] LABS: BASOPHILS % 0.7 % (0.0-2.0); EOSINOPHILS % 0.4 % (0.0-5.0); HEMATOCRIT. 39.7 % (42.0-52.0); HEMOGLOBIN. 12.5 g/dL (14.0-18.0); LYMPHOCYTES % 11.7 % (20.0-50.0); MEAN CORPUSCULAR HEMOGLOBIN 26.1 pg (28.0-32.0); MEAN CORPUSCULAR VOLUME 82.9 fL (80.0-94.0); MEAN PLATELET VOLUME 8.6 fl (7.4-10.4); NEUTROPHILS % 81.2 % (40.0-76.0); PLATELET 474 x1000/uL (130-400); RED CELL DISTRIBUTION WIDTH 15.8 % (11.6-14.6)
[2019-02-08 13:33] LABS: CHLORIDE 122 mEq/L (98-107)
[2019-02-08] MEDS: CLONIDINE 0.1MG TABLET PO PRN (13:45)
[2019-02-08] MEDS ORDERED: GUAIFENESIN 600MG ER TABLET PO SCH (14:00)
[2019-02-08] MEDS ORDERED: VECURONIUM BROMIDE 10 MG/VIAL IV ONE (15:21)
[2019-02-08] MEDS ORDERED: ETOMIDATE 2MG/ML 10ML VIAL IV ONE (15:21)
[2019-02-08] MEDS: SODIUM CHLORIDE 3% FOR INH 4ML UD NEB INH SCH (15:49)
[2019-02-08] MEDS: ACETYLCYSTEINE 100MG/ML 10% VIAL 4ML INH SCH (16:03)
[2019-02-08 16:15] LABS: BG BASE EXCESS 0.7 mmol/L (-2.0-2.0); BG CARBOXYHEMOGLOBIN 0.3 % (0.5-1.5); BG DEOXYHEMOGLOBIN 8.1 % (0.0-5.0); BG FRACTION INSPIRED OXYGEN 100; BG HCO3 ACT 23.6 mmol/L (22.0-26.0); BG METHEMOGLOBIN 0.3 % (0.0-1.5); BG OXYGEN SATURATION 91.9 % (92.0-98.5); BG OXYHEMOGLOBIN 91.3 % (94.0-97.0); BG PCO2 32.4 mmHg (35.0-45.0); BG PH 7.481 (7.350-7.450); BG SAMPLE SITE LEFT RADIAL; BG TIDAL VOLUME(mL) 500 mL; BG VENT MODE VENT - A/C; BG VENT RATE 16 set
[2019-02-08] MEDS: PIPERACILLIN/TAZ 3.375G PREMIX 50 ML IV SCH ×2 (16:47→21:07)
[2019-02-08] MEDS: AMLODIPINE 5MG TABLET PO SCH (16:47)
[2019-02-08] MEDS: ATROPINE SULFATE 1% OPHTH 2ML SL SCH ×2 (16:48→22:39)
[2019-02-08 20:18] LABS: BG BASE EXCESS 1.1 mmol/L (-2.0-2.0); BG CARBOXYHEMOGLOBIN 0.3 % (0.5-1.5); BG FRACTION INSPIRED OXYGEN 100; BG METHEMOGLOBIN 0.3 % (0.0-1.5); BG OXYGEN SATURATION 81.9 % (92.0-98.5); BG OXYHEMOGLOBIN 81.4 % (94.0-97.0); BG PCO2 32.4 mmHg (35.0-45.0); BG PH 7.487 (7.350-7.450); BG PO2 43.1 mmHg (75.0-100.0); BG SAMPLE SITE LEFT RADIAL; BG TIDAL VOLUME(mL) 500 mL; BG TOTAL HEMOGLOBIN 11.8 g/dL (12.0-18.0); BG VENT MODE VENT - A/C; BG VENT RATE 16 set
[2019-02-08 20:28] LABS: CHLORIDE 119 mEq/L (98-107)
[2019-02-08] MEDS ORDERED: PHENYLEPHRINE 20 MG in DEXT 5% WATER 248 ML IV PRN (20:45)
[2019-02-08] MEDS: PROPOFOL 10MG/ML 100ML 100 ML IV PRN (20:47)
[2019-02-09] VITALS (71 sets, daily range): BP systolic 77–132; BP diastolic 41–85
[2019-02-09] MEDS: ACETYLCYSTEINE 100MG/ML 10% VIAL 4ML INH SCH ×3 (00:29→15:50)
[2019-02-09] MEDS: IPRATROPIUM/ALBUTEROL 0.5-3(2.5)MG/3ML NEB HHN SCH ×6 (00:29→19:58)
[2019-02-09] MEDS ORDERED: VANCOMYCIN 1500MG in DEXTROSE 5% WATER 250ML IV SCH (01:00)
[2019-02-09] MEDS: PROPOFOL 10MG/ML 100ML 100 ML IV PRN ×5 (01:33→23:37)
[2019-02-09] MEDS: PIPERACILLIN/TAZ 3.375G PREMIX 50 ML IV SCH ×2 (03:36→09:21)
[2019-02-09] MEDS: DEXTROSE 5% WATER 1,000 ML IV SCH ×2 (04:56→18:27)
[2019-02-09] MEDS: ATROPINE SULFATE 1% OPHTH 2ML SL SCH ×3 (05:19→21:26)
[2019-02-09 05:55] LABS: CHLORIDE 112 mEq/L (98-107)
[2019-02-09 08:25] LABS: BG BASE EXCESS 1.2 mmol/L (-2.0-2.0); BG CARBOXYHEMOGLOBIN 0.3 % (0.5-1.5); BG DEOXYHEMOGLOBIN 4.5 % (0.0-5.0); BG FRACTION INSPIRED OXYGEN 100; BG HCO3 ACT 25.4 mmol/L (22.0-26.0); BG METHEMOGLOBIN 0.3 % (0.0-1.5); BG OXYGEN SATURATION 95.5 % (92.0-98.5); BG OXYHEMOGLOBIN 94.9 % (94.0-97.0); BG PCO2 38.6 mmHg (35.0-45.0); BG PH 7.436 (7.350-7.450); BG PO2 77.1 mmHg (75.0-100.0); BG SAMPLE SITE LEFT RADIAL; BG TIDAL VOLUME(mL) 500 mL; BG TOTAL HEMOGLOBIN 10.2 g/dL (12.0-18.0); BG VENT MODE VENT - A/C; BG VENT RATE 16 set
[2019-02-09] MEDS: AMLODIPINE 5MG TABLET PO SCH (08:58)
[2019-02-09] MEDS: FAMOTIDINE 20MG TABLET PO SCH ×2 (09:19→21:25)
[2019-02-09] MEDS: FLUCONAZOLE 100MG TABLET PO SCH (09:19)
[2019-02-09] MEDS: ZINC SULFATE 220 MG ( 50 ) CAPSULE PO SCH (09:20)
[2019-02-09] MEDS: ASCORBIC ACID 500 MG TABLET PO SCH ×2 (09:20→21:25)
[2019-02-09] MEDS: ENOXAPARIN 40MG/0.4ML SYR SUBCUT SCH (09:21)
[2019-02-09] MEDS ORDERED: POTASSIUM CHLORIDE 20MEQ/PACKET PO NR (11:00)
[2019-02-09] MEDS: PIPERACILLIN SODIUM/TAZOBACTAM 4.5 G in DEXT 5% WATER 100 ML IV SCH ×2 (15:30→21:26)
[2019-02-09] MEDS: FENTANYL CITRATE/PF 500 MCG in SODIUM CHLORIDE 0.9% 40 ML IV PRN (16:47)
[2019-02-09] MEDS: FLUCONAZOLE 400MG/200ML BAG 200 ML IV SCH (21:26)
[2019-02-10] VITALS (70 sets, daily range): BP systolic 78–155; BP diastolic 19–109
[2019-02-10] MEDS: IPRATROPIUM/ALBUTEROL 0.5-3(2.5)MG/3ML NEB HHN SCH ×6 (00:08→20:22)
[2019-02-10] MEDS: ACETYLCYSTEINE 100MG/ML 10% VIAL 4ML INH SCH ×3 (00:08→15:27)
[2019-02-10] MEDS: DEXTROSE 5% WATER 1,000 ML IV SCH (02:16)
[2019-02-10] MEDS: PIPERACILLIN SODIUM/TAZOBACTAM 4.5 G in DEXT 5% WATER 100 ML IV SCH ×4 (02:31→21:31)
[2019-02-10] MEDS: PROPOFOL 10MG/ML 100ML 100 ML IV PRN ×5 (05:12→23:49)
[2019-02-10] MEDS: ATROPINE SULFATE 1% OPHTH 2ML SL SCH ×3 (05:43→22:00)
[2019-02-10 08:36] LABS: BG BASE EXCESS -1.9 mmol/L (-2.0-2.0); BG CARBOXYHEMOGLOBIN 0.3 % (0.5-1.5); BG DEOXYHEMOGLOBIN 3.5 % (0.0-5.0); BG FRACTION INSPIRED OXYGEN 100; BG HCO3 ACT 22.1 mmol/L (22.0-26.0); BG METHEMOGLOBIN 0.3 % (0.0-1.5); BG OXYGEN SATURATION 96.5 % (92.0-98.5); BG OXYHEMOGLOBIN 95.9 % (94.0-97.0); BG PCO2 34.3 mmHg (35.0-45.0); BG PH 7.426 (7.350-7.450); BG PO2 83.5 mmHg (75.0-100.0); BG SAMPLE SITE RIGHT RADIAL; BG TIDAL VOLUME(mL) 500 mL; BG TOTAL HEMOGLOBIN 9.5 g/dL (12.0-18.0); BG VENT MODE VENT - A/C; BG VENT RATE 16 set
[2019-02-10 08:41] LABS: HEMATOCRIT 27.9 % (42.0-52.0); HEMOGLOBIN 8.8 g/dL (14.0-18.0); MEAN CORPUSCULAR HEMOGLOBIN 25.8 pg (28.0-32.0); MEAN CORPUSCULAR VOLUME 81.8 fL (80.0-94.0); PLATELET 269 x1000/uL (130-400); RED BLOOD CELL COUNT 3.41 mill/uL (4.7-6.1); RED CELL DISTRIBUTION WIDTH 15.4 % (11.6-14.6)
[2019-02-10 08:51] LABS: CHLORIDE 103 mEq/L (98-107)
[2019-02-10] MEDS: AMLODIPINE 5MG TABLET PO SCH (09:00)
[2019-02-10] MEDS: FAMOTIDINE 20MG TABLET PO SCH ×2 (09:28→21:31)
[2019-02-10] MEDS: ZINC SULFATE 220 MG ( 50 ) CAPSULE PO SCH (09:28)
[2019-02-10] MEDS: ENOXAPARIN 40MG/0.4ML SYR SUBCUT SCH (09:28)
[2019-02-10] MEDS: ASCORBIC ACID 500 MG TABLET PO SCH ×2 (09:28→21:31)
[2019-02-10] MEDS: FENTANYL CITRATE/PF 500 MCG in SODIUM CHLORIDE 0.9% 40 ML IV PRN (09:48)
[2019-02-10] MEDS: SODIUM CHLORIDE 3% FOR INH 4ML UD NEB INH SCH (12:00)
[2019-02-10] MEDS ORDERED: POTASSIUM CHLORIDE 20MEQ/PACKET NG NR (12:15)
[2019-02-10] MEDS: LORAZEPAM 2MG/ML CPJ IV PRN (17:02)
[2019-02-10] MEDS: FLUCONAZOLE 400MG/200ML BAG 200 ML IV SCH (21:31)
[2019-02-11] VITALS (82 sets, daily range): BP systolic 83–113; BP diastolic 46–78
[2019-02-11] MEDS: ACETYLCYSTEINE 100MG/ML 10% VIAL 4ML INH SCH ×3 (00:05→15:56)
[2019-02-11] MEDS: IPRATROPIUM/ALBUTEROL 0.5-3(2.5)MG/3ML NEB HHN SCH ×6 (00:05→20:31)
[2019-02-11] MEDS: FENTANYL CITRATE/PF 500 MCG in SODIUM CHLORIDE 0.9% 40 ML IV PRN ×2 (01:28→16:07)
[2019-02-11] MEDS: PIPERACILLIN SODIUM/TAZOBACTAM 4.5 G in DEXT 5% WATER 100 ML IV SCH ×4 (03:43→20:42)
[2019-02-11] MEDS: ATROPINE SULFATE 1% OPHTH 2ML SL SCH ×3 (06:00→21:42)
[2019-02-11] MEDS: PROPOFOL 10MG/ML 100ML 100 ML IV PRN ×4 (06:37→21:44)
[2019-02-11 08:09] LABS: BG BASE EXCESS -3.9 mmol/L (-2.0-2.0); BG CARBOXYHEMOGLOBIN 0.3 % (0.5-1.5); BG FRACTION INSPIRED OXYGEN 100; BG HCO3 ACT 19.9 mmol/L (22.0-26.0); BG METHEMOGLOBIN 0.5 % (0.0-1.5); BG OXYHEMOGLOBIN 98.2 % (94.0-97.0); BG PCO2 31.1 mmHg (35.0-45.0); BG PH 7.423 (7.350-7.450); BG PO2 205.8 mmHg (75.0-100.0); BG SAMPLE SITE RIGHT RADIAL; BG TIDAL VOLUME(mL) 500 mL; BG TOTAL HEMOGLOBIN 8.9 g/dL (12.0-18.0); BG VENT MODE VENT - A/C; BG VENT RATE 16 set
[2019-02-11 08:52] LABS: HEMATOCRIT 26.6 % (42.0-52.0); HEMOGLOBIN 8.9 g/dL (14.0-18.0); MEAN CORPUSCULAR HEMOGLOBIN 26.9 pg (28.0-32.0); MEAN CORPUSCULAR VOLUME 80.4 fL (80.0-94.0); PLATELET 282 x1000/uL (130-400); RED BLOOD CELL COUNT 3.32 mill/uL (4.7-6.1); RED CELL DISTRIBUTION WIDTH 15.6 % (11.6-14.6)
[2019-02-11 08:56] LABS: CHLORIDE 101 mEq/L (98-107)
[2019-02-11] MEDS: AMLODIPINE 5MG TABLET PO SCH (09:00)
[2019-02-11] MEDS: ASCORBIC ACID 500 MG TABLET PO SCH ×2 (09:07→20:43)
[2019-02-11] MEDS: ZINC SULFATE 220 MG ( 50 ) CAPSULE PO SCH (09:07)
[2019-02-11] MEDS: FAMOTIDINE 20MG TABLET PO SCH ×2 (09:07→20:43)
[2019-02-11] MEDS: FLUCONAZOLE 400MG/200ML BAG 200 ML IV SCH (20:42)
[2019-02-12] VITALS (72 sets, daily range): BP systolic 62–103; BP diastolic 38–67
[2019-02-12] MEDS: IPRATROPIUM/ALBUTEROL 0.5-3(2.5)MG/3ML NEB HHN SCH ×6 (00:26→20:20)
[2019-02-12] MEDS: ACETYLCYSTEINE 100MG/ML 10% VIAL 4ML INH SCH ×3 (00:26→16:40)
[2019-02-12] MEDS: PIPERACILLIN SODIUM/TAZOBACTAM 4.5 G in DEXT 5% WATER 100 ML IV SCH ×4 (03:26→20:44)
[2019-02-12] MEDS: PROPOFOL 10MG/ML 100ML 100 ML IV PRN ×4 (03:26→20:43)
[2019-02-12] MEDS: FENTANYL CITRATE/PF 500 MCG in SODIUM CHLORIDE 0.9% 40 ML IV PRN (04:24)
[2019-02-12] MEDS: ATROPINE SULFATE 1% OPHTH 2ML SL SCH ×3 (06:38→21:39)
[2019-02-12 07:36] LABS: HEMATOCRIT 26.8 % (42.0-52.0); HEMOGLOBIN 8.6 g/dL (14.0-18.0); MEAN CORPUSCULAR HEMOGLOBIN 25.8 pg (28.0-32.0); MEAN CORPUSCULAR VOLUME 80.4 fL (80.0-94.0); PLATELET 293 x1000/uL (130-400); RED BLOOD CELL COUNT 3.34 mill/uL (4.7-6.1); RED CELL DISTRIBUTION WIDTH 16.2 % (11.6-14.6)
[2019-02-12 07:51] LABS: CHLORIDE 102 mEq/L (98-107)
[2019-02-12 08:08] LABS: PROTHROMBIN TIME 10.3 sec (9.1-11.1)
[2019-02-12 08:16] LABS: BG BASE EXCESS -4.4 mmol/L (-2.0-2.0); BG CARBOXYHEMOGLOBIN 0.3 % (0.5-1.5); BG DEOXYHEMOGLOBIN 1.1 % (0.0-5.0); BG FRACTION INSPIRED OXYGEN 70; BG HCO3 ACT 20.1 mmol/L (22.0-26.0); BG METHEMOGLOBIN 0.6 % (0.0-1.5); BG OXYGEN SATURATION 98.9 % (92.0-98.5); BG PCO2 34.6 mmHg (35.0-45.0); BG PH 7.382 (7.350-7.450); BG SAMPLE SITE LEFT RADIAL; BG TIDAL VOLUME(mL) 500 mL; BG VENT MODE VENT - A/C; BG VENT RATE 16 set
[2019-02-12] MEDS: AMLODIPINE 5MG TABLET PO SCH (08:34)
[2019-02-12] MEDS ORDERED: SODIUM BICARBONATE 4% (2.4MEQ) 5ML VIAL IV ONE (09:46)
[2019-02-12] MEDS: ASCORBIC ACID 500 MG TABLET PO SCH ×2 (09:57→20:44)
[2019-02-12] MEDS: ZINC SULFATE 220 MG ( 50 ) CAPSULE PO SCH (09:57)
[2019-02-12] MEDS: FAMOTIDINE 20MG TABLET PO SCH ×2 (09:57→20:44)
[2019-02-12] MEDS: FLUCONAZOLE 400MG/200ML BAG 200 ML IV SCH (20:44)
[2019-02-13] VITALS (60 sets, daily range): BP systolic 84–184; BP diastolic 38–64
[2019-02-13] MEDS: IPRATROPIUM/ALBUTEROL 0.5-3(2.5)MG/3ML NEB HHN SCH ×6 (00:13→20:34)
[2019-02-13] MEDS: ACETYLCYSTEINE 100MG/ML 10% VIAL 4ML INH SCH ×2 (00:14→08:20)
[2019-02-13] MEDS: PROPOFOL 10MG/ML 100ML 100 ML IV PRN ×5 (02:17→22:54)
[2019-02-13] MEDS: PIPERACILLIN SODIUM/TAZOBACTAM 4.5 G in DEXT 5% WATER 100 ML IV SCH ×4 (02:53→20:41)
[2019-02-13] MEDS: FENTANYL CITRATE/PF 500 MCG in SODIUM CHLORIDE 0.9% 40 ML IV PRN ×2 (04:58→20:40)
[2019-02-13] MEDS: ATROPINE SULFATE 1% OPHTH 2ML SL SCH ×3 (06:12→21:17)
[2019-02-13 08:44] LABS: HEMATOCRIT 25.5 % (42.0-52.0); HEMOGLOBIN 8.3 g/dL (14.0-18.0); MEAN CORPUSCULAR HEMOGLOBIN 26.3 pg (28.0-32.0); MEAN CORPUSCULAR VOLUME 80.3 fL (80.0-94.0); PLATELET 353 x1000/uL (130-400); RED BLOOD CELL COUNT 3.17 mill/uL (4.7-6.1); RED CELL DISTRIBUTION WIDTH 16.4 % (11.6-14.6)
[2019-02-13 08:47] LABS: CHLORIDE 105 mEq/L (98-107)
[2019-02-13 08:58] LABS: BG CARBOXYHEMOGLOBIN 0.3 % (0.5-1.5); BG DEOXYHEMOGLOBIN 1.5 % (0.0-5.0); BG FRACTION INSPIRED OXYGEN 40; BG HCO3 ACT 19.8 mmol/L (22.0-26.0); BG METHEMOGLOBIN 0.5 % (0.0-1.5); BG OXYGEN SATURATION 98.5 % (92.0-98.5); BG OXYHEMOGLOBIN 97.7 % (94.0-97.0); BG PCO2 35.2 mmHg (35.0-45.0); BG PH 7.368 (7.350-7.450); BG PO2 141.5 mmHg (75.0-100.0); BG SAMPLE SITE LEFT RADIAL; BG TIDAL VOLUME(mL) 500 mL; BG TOTAL HEMOGLOBIN 8.6 g/dL (12.0-18.0); BG VENT MODE VENT - A/C; BG VENT RATE 16 set
[2019-02-13] MEDS: AMLODIPINE 5MG TABLET PO SCH (09:00)
[2019-02-13] MEDS: ZINC SULFATE 220 MG ( 50 ) CAPSULE PO SCH (09:04)
[2019-02-13] MEDS: ASCORBIC ACID 500 MG TABLET PO SCH ×2 (09:05→21:14)
[2019-02-13] MEDS: FAMOTIDINE 20MG TABLET PO SCH ×2 (09:05→21:14)
[2019-02-13] MEDS: FLUCONAZOLE 400MG/200ML BAG 200 ML IV SCH (21:18)
[2019-02-14] VITALS (41 sets, daily range): BP systolic 93–157; BP diastolic 44–81
[2019-02-14] MEDS: IPRATROPIUM/ALBUTEROL 0.5-3(2.5)MG/3ML NEB HHN SCH ×6 (00:46→20:33)
[2019-02-14] MEDS: ACETYLCYSTEINE 100MG/ML 10% VIAL 4ML INH SCH ×3 (00:46→15:25)
[2019-02-14] MEDS: PROPOFOL 10MG/ML 100ML 100 ML IV PRN ×5 (02:39→23:45)
[2019-02-14] MEDS: PIPERACILLIN SODIUM/TAZOBACTAM 4.5 G in DEXT 5% WATER 100 ML IV SCH ×4 (02:50→20:02)
[2019-02-14] MEDS: SODIUM CHLORIDE 3% FOR INH 4ML UD NEB INH SCH ×3 (04:20→20:30)
[2019-02-14] MEDS: ATROPINE SULFATE 1% OPHTH 2ML SL SCH ×3 (06:57→21:18)
[2019-02-14] MEDS: LORAZEPAM 2MG/ML CPJ IV PRN (08:03)
[2019-02-14] MEDS: ASCORBIC ACID 500 MG TABLET PO SCH ×2 (08:23→21:17)
[2019-02-14] MEDS: ZINC SULFATE 220 MG ( 50 ) CAPSULE PO SCH (08:23)
[2019-02-14] MEDS: AMLODIPINE 5MG TABLET PO SCH (08:23)
[2019-02-14] MEDS: FAMOTIDINE 20MG TABLET PO SCH ×2 (08:35→20:02)
[2019-02-14 10:17] LABS: BG BASE EXCESS -4.5 mmol/L (-2.0-2.0); BG CARBOXYHEMOGLOBIN 0.3 % (0.5-1.5); BG DEOXYHEMOGLOBIN 0.7 % (0.0-5.0); BG FRACTION INSPIRED OXYGEN 80; BG HCO3 ACT 20.8 mmol/L (22.0-26.0); BG METHEMOGLOBIN 0.5 % (0.0-1.5); BG OXYGEN SATURATION 99.3 % (92.0-98.5); BG OXYHEMOGLOBIN 98.5 % (94.0-97.0); BG PCO2 39.3 mmHg (35.0-45.0); BG PH 7.342 (7.350-7.450); BG PO2 255.1 mmHg (75.0-100.0); BG SAMPLE SITE RIGHT RADIAL; BG TIDAL VOLUME(mL) 500 mL; BG TOTAL HEMOGLOBIN 8.2 g/dL (12.0-18.0); BG VENT MODE VENT - A/C; BG VENT RATE 16 set
[2019-02-14] MEDS: FENTANYL CITRATE/PF 500 MCG in SODIUM CHLORIDE 0.9% 40 ML IV PRN ×2 (10:22→21:11)
[2019-02-14] MEDS: LORAZEPAM 2MG/ML CPJ IM PRN (13:12)
[2019-02-14] MEDS: FLUCONAZOLE 400MG/200ML BAG 200 ML IV SCH (20:02)
[2019-02-15] VITALS (36 sets, daily range): BP systolic 90–120; BP diastolic 44–75
[2019-02-15] MEDS: IPRATROPIUM/ALBUTEROL 0.5-3(2.5)MG/3ML NEB HHN SCH ×6 (00:33→20:27)
[2019-02-15] MEDS: ACETYLCYSTEINE 100MG/ML 10% VIAL 4ML INH SCH ×3 (00:33→15:50)
[2019-02-15] MEDS: PIPERACILLIN SODIUM/TAZOBACTAM 4.5 G in DEXT 5% WATER 100 ML IV SCH ×4 (02:56→20:40)
[2019-02-15] MEDS: PROPOFOL 10MG/ML 100ML 100 ML IV PRN ×3 (04:23→21:15)
[2019-02-15] MEDS: ATROPINE SULFATE 1% OPHTH 2ML SL SCH ×3 (05:40→21:17)
[2019-02-15 07:15] LABS: HEMATOCRIT. 22.4 % (42.0-52.0); HEMOGLOBIN. 7.5 g/dL (14.0-18.0); MEAN CORPUSCULAR HEMOGLOBIN 26.3 pg (28.0-32.0); MEAN CORPUSCULAR VOLUME 78.6 fL (80.0-94.0); MEAN PLATELET VOLUME 8.3 fl (7.4-10.4); PLATELET 397 x1000/uL (130-400); RED BLOOD CELL COUNT 2.85 mill/uL (4.7-6.1); RED CELL DISTRIBUTION WIDTH 16.2 % (11.6-14.6)
[2019-02-15 07:16] LABS: CHLORIDE 109 mEq/L (98-107)
[2019-02-15] MEDS: FENTANYL CITRATE/PF 500 MCG in SODIUM CHLORIDE 0.9% 40 ML IV PRN ×2 (07:31→13:56)
[2019-02-15 07:44] LABS: PLATELET ESTIMATE NORMAL
[2019-02-15 07:55] LABS: BG BASE EXCESS -2.4 mmol/L (-2.0-2.0); BG CARBOXYHEMOGLOBIN 0.1 % (0.5-1.5); BG DEOXYHEMOGLOBIN 5.5 % (0.0-5.0); BG FRACTION INSPIRED OXYGEN 40; BG HCO3 ACT 22.4 mmol/L (22.0-26.0); BG METHEMOGLOBIN 0.3 % (0.0-1.5); BG OXYGEN SATURATION 94.5 % (92.0-98.5); BG OXYHEMOGLOBIN 94.1 % (94.0-97.0); BG PCO2 38.7 mmHg (35.0-45.0); BG PH 7.381 (7.350-7.450); BG PO2 77.9 mmHg (75.0-100.0); BG SAMPLE SITE RIGHT BRACHIAL; BG TIDAL VOLUME(mL) 500 mL; BG TOTAL HEMOGLOBIN 7.7 g/dL (12.0-18.0); BG VENT MODE VENT - A/C; BG VENT RATE 16 set
[2019-02-15] MEDS: FAMOTIDINE 20MG TABLET PO SCH ×2 (08:00→20:40)
[2019-02-15] MEDS: ASCORBIC ACID 500 MG TABLET PO SCH ×2 (08:00→20:40)
[2019-02-15] MEDS: ZINC SULFATE 220 MG ( 50 ) CAPSULE PO SCH (08:00)
[2019-02-15] MEDS: AMLODIPINE 5MG TABLET PO SCH (08:01)
[2019-02-15] MEDS: LORAZEPAM 2MG/ML CPJ IM PRN (09:33)
[2019-02-15] MEDS ORDERED: SODIUM CHLORIDE 3% FOR INH 15ML VIAL NEB INH SCH (13:00)
[2019-02-15] MEDS: FLUCONAZOLE 400MG/200ML BAG 200 ML IV SCH (20:40)
[2019-02-15] MEDS: SODIUM CHLORIDE 3% FOR INH 4ML UD NEB INH SCH (21:49)
[2019-02-16] VITALS (47 sets, daily range): BP systolic 98–126; BP diastolic 48–75
[2019-02-16] MEDS: ACETYLCYSTEINE 100MG/ML 10% VIAL 4ML INH SCH ×2 (00:13→08:20)
[2019-02-16] MEDS: IPRATROPIUM/ALBUTEROL 0.5-3(2.5)MG/3ML NEB HHN SCH ×6 (00:13→20:26)
[2019-02-16] MEDS: FENTANYL CITRATE/PF 500 MCG in SODIUM CHLORIDE 0.9% 40 ML IV PRN ×2 (02:15→13:00)
[2019-02-16] MEDS: PIPERACILLIN SODIUM/TAZOBACTAM 4.5 G in DEXT 5% WATER 100 ML IV SCH ×4 (02:20→20:35)
[2019-02-16] MEDS: PROPOFOL 10MG/ML 100ML 100 ML IV PRN ×4 (02:20→22:22)
[2019-02-16] MEDS: SODIUM CHLORIDE 3% FOR INH 4ML UD NEB INH SCH ×3 (04:23→20:26)
[2019-02-16] MEDS: ATROPINE SULFATE 1% OPHTH 2ML SL SCH ×3 (05:28→21:47)
[2019-02-16 06:34] LABS: CHLORIDE 110 mEq/L (98-107)
[2019-02-16] MEDS ORDERED: SODIUM POLYSTYRENE SULFONATE 15 G/60 ML BOT NG SCH (09:00)
[2019-02-16] MEDS: AMLODIPINE 5MG TABLET PO SCH (09:45)
[2019-02-16] MEDS: FAMOTIDINE 20MG TABLET PO SCH ×2 (09:45→20:35)
[2019-02-16] MEDS: ASCORBIC ACID 500 MG TABLET PO SCH ×2 (09:45→20:35)
[2019-02-16] MEDS: ZINC SULFATE 220 MG ( 50 ) CAPSULE PO SCH (09:46)
[2019-02-16] MEDS ORDERED: METOCLOPRAMIDE HCL 10MG/2ML VIAL IV SCH (12:40)
[2019-02-16] MEDS: FLUCONAZOLE 400MG/200ML BAG 200 ML IV SCH (20:35)
[2019-02-17] VITALS (48 sets, daily range): BP systolic 101–124; BP diastolic 55–78
[2019-02-17] MEDS: IPRATROPIUM/ALBUTEROL 0.5-3(2.5)MG/3ML NEB HHN SCH ×6 (00:03→20:48)
[2019-02-17] MEDS: FENTANYL CITRATE/PF 500 MCG in SODIUM CHLORIDE 0.9% 40 ML IV PRN ×3 (00:34→22:11)
[2019-02-17] MEDS: PIPERACILLIN SODIUM/TAZOBACTAM 4.5 G in DEXT 5% WATER 100 ML IV SCH ×4 (02:20→21:57)
[2019-02-17] MEDS: PROPOFOL 10MG/ML 100ML 100 ML IV PRN ×6 (02:52→22:13)
[2019-02-17] MEDS: ATROPINE SULFATE 1% OPHTH 2ML SL SCH ×3 (05:15→21:58)
[2019-02-17 06:35] LABS: CHLORIDE 112 mEq/L (98-107)
[2019-02-17 08:18] LABS: BG BASE EXCESS -5.4 mmol/L (-2.0-2.0); BG CARBOXYHEMOGLOBIN 0.1 % (0.5-1.5); BG DEOXYHEMOGLOBIN 9.7 % (0.0-5.0); BG HCO3 ACT 20.2 mmol/L (22.0-26.0); BG METHEMOGLOBIN 0.3 % (0.0-1.5); BG OXYGEN SATURATION 90.3 % (92.0-98.5); BG OXYHEMOGLOBIN 89.9 % (94.0-97.0); BG PCO2 39.9 mmHg (35.0-45.0); BG PH 7.323 (7.350-7.450); BG PO2 67.5 mmHg (75.0-100.0); BG SAMPLE SITE RIGHT RADIAL; BG TIDAL VOLUME(mL) 500 mL; BG TOTAL HEMOGLOBIN 7.4 g/dL (12.0-18.0); BG VENT MODE VENT - A/C; BG VENT RATE 16 set
[2019-02-17 08:23] LABS: HEMATOCRIT. 23.6 % (42.0-52.0); HEMOGLOBIN. 7.7 g/dL (14.0-18.0); MEAN CORPUSCULAR VOLUME 79.6 fL (80.0-94.0); MEAN PLATELET VOLUME 7.9 fl (7.4-10.4); PLATELET 419 x1000/uL (130-400); RED BLOOD CELL COUNT 2.97 mill/uL (4.7-6.1); RED CELL DISTRIBUTION WIDTH 16.8 % (11.6-14.6)
[2019-02-17] MEDS: AMLODIPINE 5MG TABLET PO SCH (08:34)
[2019-02-17] MEDS: ZINC SULFATE 220 MG ( 50 ) CAPSULE PO SCH (08:35)
[2019-02-17] MEDS: FAMOTIDINE 20MG TABLET PO SCH ×2 (08:35→21:57)
[2019-02-17] MEDS: ASCORBIC ACID 500 MG TABLET PO SCH ×2 (08:35→21:57)
[2019-02-17] MEDS: SODIUM CHLORIDE 3% FOR INH 4ML UD NEB INH SCH ×2 (09:33→16:01)
[2019-02-17 09:53] LABS: PLATELET ESTIMATE INCREASED
[2019-02-17] MEDS ORDERED: PROPOFOL 10MG/ML 100ML 100 ML IV PRN (11:30)
[2019-02-17] MEDS ORDERED: SODIUM POLYSTYRENE SULFONATE 15 G/60 ML BOT PO NR (14:00)
[2019-02-17] MEDS ORDERED: LIDOCAINE HCL/PF 1% 2ML VIAL ONE (14:06)
[2019-02-17] MEDS: FLUCONAZOLE 400MG/200ML BAG 200 ML IV SCH (21:57)
[2019-02-18] VITALS (49 sets, daily range): BP systolic 103–141; BP diastolic 57–91
[2019-02-18] MEDS: IPRATROPIUM/ALBUTEROL 0.5-3(2.5)MG/3ML NEB HHN SCH ×6 (02:12→20:56)
[2019-02-18] MEDS: PROPOFOL 10MG/ML 100ML 100 ML IV PRN ×5 (03:16→21:33)
[2019-02-18] MEDS: PIPERACILLIN SODIUM/TAZOBACTAM 4.5 G in DEXT 5% WATER 100 ML IV SCH ×4 (03:16→20:45)
[2019-02-18] MEDS: ATROPINE SULFATE 1% OPHTH 2ML SL SCH (06:22)
[2019-02-18 06:25] LABS: HEMATOCRIT. 25.3 % (42.0-52.0); HEMOGLOBIN. 8.4 g/dL (14.0-18.0); MEAN CORPUSCULAR HEMOGLOBIN 25.8 pg (28.0-32.0); MEAN CORPUSCULAR VOLUME 78.4 fL (80.0-94.0); MEAN PLATELET VOLUME 7.4 fl (7.4-10.4); PLATELET 439 x1000/uL (130-400); RED BLOOD CELL COUNT 3.23 mill/uL (4.7-6.1); RED CELL DISTRIBUTION WIDTH 16.6 % (11.6-14.6)
[2019-02-18 06:31] LABS: CHLORIDE 113 mEq/L (98-107)
[2019-02-18] MEDS: AMLODIPINE 5MG TABLET PO SCH (08:15)
[2019-02-18] MEDS: ZINC SULFATE 220 MG ( 50 ) CAPSULE PO SCH (08:16)
[2019-02-18] MEDS: FAMOTIDINE 20MG TABLET PO SCH ×2 (08:16→20:45)
[2019-02-18] MEDS: ASCORBIC ACID 500 MG TABLET PO SCH ×2 (08:16→20:45)
[2019-02-18 08:18] LABS: BG BASE EXCESS -7.4 mmol/L (-2.0-2.0); BG CARBOXYHEMOGLOBIN 0.3 % (0.5-1.5); BG DEOXYHEMOGLOBIN 4.2 % (0.0-5.0); BG HCO3 ACT 17.1 mmol/L (22.0-26.0); BG METHEMOGLOBIN 0.3 % (0.0-1.5); BG OXYGEN SATURATION 95.8 % (92.0-98.5); BG OXYHEMOGLOBIN 95.2 % (94.0-97.0); BG PCO2 30.5 mmHg (35.0-45.0); BG PH 7.366 (7.350-7.450); BG PO2 92.7 mmHg (75.0-100.0); BG SAMPLE SITE RIGHT RADIAL; BG TIDAL VOLUME(mL) 500 mL; BG TOTAL HEMOGLOBIN 8.3 g/dL (12.0-18.0); BG VENT MODE VENT - A/C; BG VENT RATE 16 set
[2019-02-18] MEDS: FENTANYL CITRATE/PF 500 MCG in SODIUM CHLORIDE 0.9% 40 ML IV PRN ×4 (09:22→23:14)
[2019-02-18 12:43] LABS: PLATELET ESTIMATE SLIGHTLY INCREASED
[2019-02-18] MEDS: ACETYLCYSTEINE 100MG/ML 10% VIAL 4ML INH SCH (16:19)
[2019-02-18] MEDS: FLUCONAZOLE 400MG/200ML BAG 200 ML IV SCH (20:45)
[2019-02-18] MEDS: SODIUM CHLORIDE 3% FOR INH 4ML UD NEB INH SCH (20:56)
[2019-02-19] VITALS (50 sets, daily range): BP systolic 91–155; BP diastolic 47–102
[2019-02-19] MEDS: ACETYLCYSTEINE 100MG/ML 10% VIAL 4ML INH SCH ×3 (00:32→16:02)
[2019-02-19] MEDS: IPRATROPIUM/ALBUTEROL 0.5-3(2.5)MG/3ML NEB HHN SCH ×6 (00:32→20:15)
[2019-02-19] MEDS: PIPERACILLIN SODIUM/TAZOBACTAM 4.5 G in DEXT 5% WATER 100 ML IV SCH ×4 (03:29→20:37)
[2019-02-19] MEDS: FENTANYL CITRATE/PF 500 MCG in SODIUM CHLORIDE 0.9% 40 ML IV PRN ×2 (04:15→11:08)
[2019-02-19] MEDS: SODIUM CHLORIDE 3% FOR INH 4ML UD NEB INH SCH ×2 (04:37→11:57)
[2019-02-19 05:59] LABS: HEMATOCRIT. 22.1 % (42.0-52.0); HEMOGLOBIN. 7.3 g/dL (14.0-18.0); MEAN CORPUSCULAR HEMOGLOBIN 26.2 pg (28.0-32.0); MEAN CORPUSCULAR VOLUME 79.2 fL (80.0-94.0); MEAN PLATELET VOLUME 7.2 fl (7.4-10.4); PLATELET 389 x1000/uL (130-400); RED BLOOD CELL COUNT 2.79 mill/uL (4.7-6.1); RED CELL DISTRIBUTION WIDTH 17.2 % (11.6-14.6)
[2019-02-19 06:16] LABS: INR 1.2; PROTHROMBIN TIME 11.7 sec (9.1-11.1)
[2019-02-19 06:21] LABS: CHLORIDE 117 mEq/L (98-107)
[2019-02-19] MEDS: PROPOFOL 10MG/ML 100ML 100 ML IV PRN ×2 (08:40→13:02)
[2019-02-19 09:10] LABS: PLATELET ESTIMATE NORMAL
[2019-02-19] MEDS: FAMOTIDINE 20MG TABLET PO SCH ×2 (09:26→20:41)
[2019-02-19] MEDS: AMLODIPINE 5MG TABLET PO SCH (09:27)
[2019-02-19] MEDS: ASCORBIC ACID 500 MG TABLET PO SCH ×2 (09:27→20:41)
[2019-02-19] MEDS: ZINC SULFATE 220 MG ( 50 ) CAPSULE PO SCH (09:27)
[2019-02-19] MEDS ORDERED: LORAZEPAM 2MG/ML CPJ IV PRN (13:15)
[2019-02-19] MEDS ORDERED: MORPHINE SULFATE 4 MG/ML CPJ (NOT FOR IM USE) IV PRN (13:15)
[2019-02-19] MEDS ORDERED: PROPOFOL 10MG/ML 100ML 100 ML IV PRN (14:00)
[2019-02-19] MEDS ORDERED: ROCURONIUM BROMIDE 10MG/ML VIAL 5ML IV ONE (15:08)
[2019-02-19] MEDS ORDERED: MIDAZOLAM HCL 2 MG/2 ML VIAL ONE (15:08)
[2019-02-19] MEDS ORDERED: FENTANYL CITRATE/PF 500 MCG in SODIUM CHLORIDE 0.9% 40 ML IV PRN (16:01)
[2019-02-19] MEDS ORDERED: MIDAZOLAM HCL 5 MG/5 ML VIAL ONE (16:45)
[2019-02-19] MEDS ORDERED: FENTANYL CITRATE/PF 50MCG/ML 2ML VIAL ONE (16:45)
[2019-02-19] MEDS ORDERED: PHYTONADIONE 10MG/ML AMP SUBCUT STA (18:41)
[2019-02-19 21:44] LABS: HEMATOCRIT 25.3 % (42.0-52.0); HEMOGLOBIN 8.3 g/dL (14.0-18.0); MEAN CORPUSCULAR HEMOGLOBIN 26.6 pg (28.0-32.0); MEAN CORPUSCULAR VOLUME 81.3 fL (80.0-94.0); PLATELET 469 x1000/uL (130-400); RED BLOOD CELL COUNT 3.11 mill/uL (4.7-6.1); RED CELL DISTRIBUTION WIDTH 17.1 % (11.6-14.6)
[2019-02-19] MEDS: FLUCONAZOLE 400MG/200ML BAG 200 ML IV SCH (21:58)
[2019-02-20] VITALS (101 sets, daily range): BP systolic 64–148; BP diastolic 39–104
[2019-02-20] MEDS: IPRATROPIUM/ALBUTEROL 0.5-3(2.5)MG/3ML NEB HHN SCH ×7 (00:28→23:48)
[2019-02-20] MEDS: ACETYLCYSTEINE 100MG/ML 10% VIAL 4ML INH SCH ×2 (00:28→08:02)
[2019-02-20] MEDS ORDERED: SODIUM CHLORIDE 0.9% 1,000 ML IV SCH (00:45)
[2019-02-20] MEDS ORDERED: NOREPINEPHRINE 32 MG in DEXT 5% WATER 468 ML IV PRN (00:45)
[2019-02-20] MEDS: PHENYLEPHRINE 40 MG in DEXT 5% WATER 246 ML IV PRN ×2 (01:59→05:44)
[2019-02-20] MEDS: VASOPRESSIN 10 UNIT in SODIUM CHLORIDE 0.9% 99.5 ML IV PRN ×3 (02:25→10:24)
[2019-02-20 06:54] LABS: HEMATOCRIT. 22.2 % (42.0-52.0); MEAN CORPUSCULAR HEMOGLOBIN 26.5 pg (28.0-32.0); MEAN CORPUSCULAR VOLUME 85.6 fL (80.0-94.0); MEAN PLATELET VOLUME 7.6 fl (7.4-10.4); PLATELET 581 x1000/uL (130-400); RED BLOOD CELL COUNT 2.59 mill/uL (4.7-6.1); RED CELL DISTRIBUTION WIDTH 18.1 % (11.6-14.6)
[2019-02-20 07:09] LABS: HEMOGLOBIN. 6.9 g/dL (14.0-18.0)
[2019-02-20 07:32] LABS: BG BASE EXCESS -16.7 mmol/L (-2.0-2.0); BG CARBOXYHEMOGLOBIN 0.3 % (0.5-1.5); BG DEOXYHEMOGLOBIN 2.3 % (0.0-5.0); BG FRACTION INSPIRED OXYGEN 40; BG HCO3 ACT 9.6 mmol/L (22.0-26.0); BG METHEMOGLOBIN 0.9 % (0.0-1.5); BG OXYGEN SATURATION 97.7 % (92.0-98.5); BG OXYHEMOGLOBIN 96.5 % (94.0-97.0); BG PCO2 24.4 mmHg (35.0-45.0); BG PH 7.214 (7.350-7.450); BG PO2 140.3 mmHg (75.0-100.0); BG SAMPLE SITE RIGHT RADIAL; BG TIDAL VOLUME(mL) 500 mL; BG TOTAL HEMOGLOBIN 6.3 g/dL (12.0-18.0); BG VENT MODE VENT - A/C; BG VENT RATE 16 set
[2019-02-20 07:40] LABS: CHLORIDE 119 mEq/L (98-107)
[2019-02-20] MEDS ORDERED: SODIUM BICARBONATE 8.4% 1 MEQ/ML 50ML SYR IV NR (07:45)
[2019-02-20] MEDS: AMLODIPINE 5MG TABLET PO SCH (09:00)
[2019-02-20] MEDS ORDERED: RACEPINEPHRINE 2.25% 0.5ML NEB VIAL HHN PRN (09:00)
[2019-02-20] MEDS ORDERED: RACEPINEPHRINE 2.25% 0.5ML NEB VIAL HHN SCH (09:00)
[2019-02-20 09:07] LABS: PLATELET ESTIMATE INCREASED
[2019-02-20] MEDS ORDERED: PHENYLEPHRINE 80 MG in DEXT 5% WATER 492 ML IV PRN ×2 (09:45→10:15)
[2019-02-20] MEDS: ZINC SULFATE 220 MG ( 50 ) CAPSULE PO SCH (10:00)
[2019-02-20] MEDS: FAMOTIDINE 20MG TABLET PO SCH ×2 (10:00→22:01)
[2019-02-20] MEDS: ASCORBIC ACID 500 MG TABLET PO SCH ×2 (10:00→22:01)
[2019-02-20 10:06] LABS: D-DIMER 18.14 mg/L FEU (<0.50); INR 1.3; PARTIAL THROMBOPLASTIN TIME 39.7 sec (23.4-31.0); PROTHROMBIN TIME 13.3 sec (9.1-11.1)
[2019-02-20 10:21] LABS: BG BASE EXCESS -10.1 mmol/L (-2.0-2.0); BG CARBOXYHEMOGLOBIN 0.3 % (0.5-1.5); BG DEOXYHEMOGLOBIN 2.7 % (0.0-5.0); BG HCO3 ACT 14.3 mmol/L (22.0-26.0); BG METHEMOGLOBIN 0.5 % (0.0-1.5); BG OXYGEN SATURATION 97.3 % (92.0-98.5); BG OXYHEMOGLOBIN 96.5 % (94.0-97.0); BG PCO2 26.8 mmHg (35.0-45.0); BG PH 7.345 (7.350-7.450); BG PO2 111.8 mmHg (75.0-100.0); BG SAMPLE SITE RIGHT RADIAL; BG TIDAL VOLUME(mL) 500 mL; BG TOTAL HEMOGLOBIN 9.3 g/dL (12.0-18.0); BG VENT MODE VENT - A/C; BG VENT RATE 24 set
[2019-02-20] MEDS: PHENYLEPHRINE HCL 1% 15 ML NASAL SPRAY BOTHNSTRLS PRN (11:19)
[2019-02-20] MEDS: SODIUM CHLORIDE 3% FOR INH 4ML UD NEB INH SCH ×2 (12:00→23:50)
[2019-02-20] MEDS: ATROPINE SULFATE 1% OPHTH 2ML SL SCH (14:59)
[2019-02-20] MEDS: MEROPENEM 1,000 MG in SODIUM CHLORIDE 0.9% 100 ML IV SCH ×2 (14:59→22:01)
[2019-02-20 15:05] LABS: CLARITY URINE TURBID (CLEAR); COLOR URINE YELLOW (YELLOW); KETONES URINE NEGATIVE (NEGATIVE); LEUKOCYTE ESTERASE URINE 1+ (NEGATIVE); NITRITE URINE NEGATIVE (NEGATIVE); OCCULT BLOOD URINE 2+ (NEGATIVE); PROTEIN URINE 1+ (NEGATIVE); SPECIFIC GRAVITY URINE 1.024 (1.005-1.030); UROBILINOGEN URINE 0.2 E.U./dL (0.2-1.0)
[2019-02-20] MEDS: SODIUM CHLORIDE 0.9% 1,000 ML IV SCH (15:10)
[2019-02-20] MEDS: AMIKACIN SULFATE 650 MG in SODIUM CHLORIDE 0.9% 100 ML IV SCH ×2 (15:26→22:46)
[2019-02-20] MEDS ORDERED: VANCOMYCIN 1500MG in DEXTROSE 5% WATER 250ML IV SCH (16:00)
[2019-02-20 17:09] LABS: HEMATOCRIT. 30.1 % (42.0-52.0); HEMOGLOBIN. 10.2 g/dL (14.0-18.0); MEAN CORPUSCULAR HEMOGLOBIN 28.4 pg (28.0-32.0); MEAN CORPUSCULAR VOLUME 83.3 fL (80.0-94.0); MEAN PLATELET VOLUME 7.3 fl (7.4-10.4); PLATELET 310 x1000/uL (130-400); RED BLOOD CELL COUNT 3.61 mill/uL (4.7-6.1); RED CELL DISTRIBUTION WIDTH 15.8 % (11.6-14.6)
[2019-02-20 17:21] LABS: CHLORIDE 116 mEq/L (98-107)
[2019-02-20 17:31] LABS: PLATELET ESTIMATE NORMAL
[2019-02-21] VITALS (77 sets, daily range): BP systolic 92–139; BP diastolic 42–81
[2019-02-21] MEDS: VANCOMYCIN 1250MG in DEXTROSE 5% WATER 250ML IV SCH ×2 (00:12→07:45)
[2019-02-21] MEDS: ATROPINE SULFATE 1% OPHTH 2ML SL SCH ×6 (00:13→22:37)
[2019-02-21] MEDS: SODIUM CHLORIDE 0.9% 1,000 ML IV SCH ×2 (01:08→11:43)
[2019-02-21] MEDS: IPRATROPIUM/ALBUTEROL 0.5-3(2.5)MG/3ML NEB HHN SCH ×5 (04:03→20:11)
[2019-02-21 06:27] LABS: CHLORIDE 114 mEq/L (98-107)
[2019-02-21] MEDS: MEROPENEM 1,000 MG in SODIUM CHLORIDE 0.9% 100 ML IV SCH ×3 (06:29→22:37)
[2019-02-21 06:37] LABS: PHOSPHORUS 7.1 mg/dL (2.5-4.9)
[2019-02-21 06:44] LABS: HEMATOCRIT. 25.5 % (42.0-52.0); HEMOGLOBIN. 8.8 g/dL (14.0-18.0); MEAN CORPUSCULAR HEMOGLOBIN 28.8 pg (28.0-32.0); MEAN CORPUSCULAR VOLUME 83.1 fL (80.0-94.0); MEAN PLATELET VOLUME 7.6 fl (7.4-10.4); PLATELET 267 x1000/uL (130-400); RED BLOOD CELL COUNT 3.06 mill/uL (4.7-6.1); RED CELL DISTRIBUTION WIDTH 15.9 % (11.6-14.6)
[2019-02-21] MEDS: AMIKACIN SULFATE 650 MG in SODIUM CHLORIDE 0.9% 100 ML IV SCH (07:45)
[2019-02-21] MEDS: AMLODIPINE 5MG TABLET PO SCH (09:00)
[2019-02-21 09:15] LABS: BG BASE EXCESS -15.1 mmol/L (-2.0-2.0); BG CARBOXYHEMOGLOBIN 0.3 % (0.5-1.5); BG DEOXYHEMOGLOBIN 1.9 % (0.0-5.0); BG FRACTION INSPIRED OXYGEN 35; BG HCO3 ACT 9.9 mmol/L (22.0-26.0); BG METHEMOGLOBIN 0.5 % (0.0-1.5); BG OXYGEN SATURATION 98.1 % (92.0-98.5); BG OXYHEMOGLOBIN 97.3 % (94.0-97.0); BG PCO2 21.2 mmHg (35.0-45.0); BG PH 7.287 (7.350-7.450); BG PO2 152.5 mmHg (75.0-100.0); BG SAMPLE SITE LEFT RADIAL; BG TIDAL VOLUME(mL) 500 mL; BG TOTAL HEMOGLOBIN 8.5 g/dL (12.0-18.0); BG VENT MODE VENT - A/C; BG VENT RATE 28 set
[2019-02-21 09:21] LABS: NUCLEATED RED BLOOD CELLS 1 /100 WBC; PLATELET ESTIMATE NORMAL
[2019-02-21] MEDS: ASCORBIC ACID 500 MG TABLET PO SCH ×2 (09:41→21:00)
[2019-02-21] MEDS: ZINC SULFATE 220 MG ( 50 ) CAPSULE PO SCH (09:41)
[2019-02-21] MEDS: FAMOTIDINE 20MG TABLET PO SCH ×2 (09:41→21:00)
[2019-02-21] MEDS ORDERED: SODIUM BICARBONATE 8.4% 1 MEQ/ML 50ML SYR IV SCH (10:45)
[2019-02-21] MEDS ORDERED: SODIUM BICARBONATE 8.4% 1 MEQ/ML 50ML SYR IV ONE (11:45)
[2019-02-21] MEDS: CITRIC ACID/SODIUM CITRATE SOLN 30ML UDC PO SCH ×2 (14:00→16:45)
[2019-02-21] MEDS ORDERED: IOHEXOL-300 100 ML BOTTLE ONE (14:36)
[2019-02-21] MEDS: SODIUM BICARBONATE 100 MEQ in DEXTROSE 5% WATER 1,000 ML IV SCH (15:55)
[2019-02-21 17:21] LABS: HEMATOCRIT. 21.1 % (42.0-52.0); HEMOGLOBIN. 7.3 g/dL (14.0-18.0); MEAN CORPUSCULAR HEMOGLOBIN 28.6 pg (28.0-32.0); MEAN PLATELET VOLUME 7.2 fl (7.4-10.4); PLATELET 219 x1000/uL (130-400); RED BLOOD CELL COUNT 2.54 mill/uL (4.7-6.1); RED CELL DISTRIBUTION WIDTH 16.3 % (11.6-14.6)
[2019-02-21 17:26] LABS: INR 1.2; PARTIAL THROMBOPLASTIN TIME 42.2 sec (23.4-31.0); PROTHROMBIN TIME 12.1 sec (9.1-11.1)
[2019-02-21 17:50] LABS: PLATELET ESTIMATE NORMAL
[2019-02-21] MEDS: PHENYLEPHRINE HCL 1% 15 ML NASAL SPRAY BOTHNSTRLS PRN (22:37)
[2019-02-22] VITALS (47 sets, daily range): BP systolic 105–161; BP diastolic 62–98
[2019-02-22] MEDS: IPRATROPIUM/ALBUTEROL 0.5-3(2.5)MG/3ML NEB HHN SCH ×6 (00:10→21:01)
[2019-02-22] MEDS: SODIUM BICARBONATE 100 MEQ in DEXTROSE 5% WATER 1,000 ML IV SCH (02:25)
[2019-02-22 05:49] LABS: HEMATOCRIT. 26.7 % (42.0-52.0); HEMOGLOBIN. 9.2 g/dL (14.0-18.0); MEAN CORPUSCULAR HEMOGLOBIN 28.6 pg (28.0-32.0); MEAN CORPUSCULAR VOLUME 82.7 fL (80.0-94.0); MEAN PLATELET VOLUME 7.2 fl (7.4-10.4); PLATELET 191 x1000/uL (130-400); RED BLOOD CELL COUNT 3.23 mill/uL (4.7-6.1); RED CELL DISTRIBUTION WIDTH 15.7 % (11.6-14.6)
[2019-02-22 05:55] LABS: CHLORIDE 113 mEq/L (98-107)
[2019-02-22 06:01] LABS: PHOSPHORUS 6.5 mg/dL (2.5-4.9)
[2019-02-22] MEDS: MEROPENEM 1,000 MG in SODIUM CHLORIDE 0.9% 100 ML IV SCH ×3 (06:45→21:27)
[2019-02-22] MEDS: ATROPINE SULFATE 1% OPHTH 2ML SL SCH ×2 (06:45→13:21)
[2019-02-22 08:17] LABS: BG BASE EXCESS -5.9 mmol/L (-2.0-2.0); BG CARBOXYHEMOGLOBIN 0.3 % (0.5-1.5); BG DEOXYHEMOGLOBIN 1.4 % (0.0-5.0); BG FRACTION INSPIRED OXYGEN 35; BG HCO3 ACT 15.6 mmol/L (22.0-26.0); BG METHEMOGLOBIN 0.4 % (0.0-1.5); BG OXYGEN SATURATION 98.6 % (92.0-98.5); BG OXYHEMOGLOBIN 97.9 % (94.0-97.0); BG PCO2 19.7 mmHg (35.0-45.0); BG PH 7.517 (7.350-7.450); BG PO2 189.2 mmHg (75.0-100.0); BG SAMPLE SITE RIGHT RADIAL; BG TIDAL VOLUME(mL) 500 mL; BG VENT MODE VENT - A/C; BG VENT RATE 24 set
[2019-02-22] MEDS: CITRIC ACID/SODIUM CITRATE SOLN 30ML UDC PO SCH ×3 (08:57→18:34)
[2019-02-22] MEDS: ZINC SULFATE 220 MG ( 50 ) CAPSULE PO SCH (08:57)
[2019-02-22] MEDS: ASCORBIC ACID 500 MG TABLET PO SCH ×2 (08:58→20:40)
[2019-02-22] MEDS: FAMOTIDINE 20MG TABLET PO SCH ×2 (08:58→20:40)
[2019-02-22] MEDS: AMLODIPINE 5MG TABLET PO SCH (08:58)
[2019-02-22 09:30] LABS: PLATELET ESTIMATE NORMAL
[2019-02-22] MEDS: SODIUM BICARBONATE 50 MEQ in DEXTROSE 5% WATER 1,000 ML IV SCH ×2 (11:00→20:40)
[2019-02-22 18:45] LABS: CLARITY URINE TURBID (CLEAR); COLOR URINE ORANGE (YELLOW); KETONES URINE NEGATIVE (NEGATIVE); LEUKOCYTE ESTERASE URINE 2+ (NEGATIVE); NITRITE URINE NEGATIVE (NEGATIVE); OCCULT BLOOD URINE 3+ (NEGATIVE); PH URINE 6.5 (4.5-8.0); PROTEIN URINE 3+ (NEGATIVE); SPECIFIC GRAVITY URINE 1.018 (1.005-1.030); UROBILINOGEN URINE 0.2 E.U./dL (0.2-1.0)
[2019-02-23] VITALS (46 sets, daily range): BP systolic 114–136; BP diastolic 67–91
[2019-02-23] MEDS: IPRATROPIUM/ALBUTEROL 0.5-3(2.5)MG/3ML NEB HHN SCH ×6 (01:09→21:02)
[2019-02-23] MEDS: SODIUM CHLORIDE 3% FOR INH 4ML UD NEB INH SCH ×3 (01:10→15:46)
[2019-02-23 04:49] LABS: BASOPHILS % 0.5 % (0.0-2.0); EOSINOPHILS % 0.9 % (0.0-5.0); HEMATOCRIT. 27.6 % (42.0-52.0); HEMOGLOBIN. 9.6 g/dL (14.0-18.0); LYMPHOCYTES % 10.1 % (20.0-50.0); MEAN CORPUSCULAR HEMOGLOBIN 28.7 pg (28.0-32.0); MEAN CORPUSCULAR VOLUME 82.6 fL (80.0-94.0); MONOCYTES % 4.1 % (2.0-8.0); NEUTROPHILS % 84.4 % (40.0-76.0); PLATELET 152 x1000/uL (130-400); RED BLOOD CELL COUNT 3.34 mill/uL (4.7-6.1); RED CELL DISTRIBUTION WIDTH 16.5 % (11.6-14.6)
[2019-02-23 05:00] LABS: CHLORIDE 110 mEq/L (98-107)
[2019-02-23 05:15] LABS: CREATINE KINASE 78 IU/L (39-308)
[2019-02-23] MEDS: ATROPINE SULFATE 1% OPHTH 2ML SL SCH ×3 (06:00→22:00)
[2019-02-23] MEDS: MEROPENEM 1,000 MG in SODIUM CHLORIDE 0.9% 100 ML IV SCH ×3 (06:12→21:09)
[2019-02-23 07:45] LABS: BG BASE EXCESS -1.9 mmol/L (-2.0-2.0); BG CARBOXYHEMOGLOBIN 0.2 % (0.5-1.5); BG DEOXYHEMOGLOBIN 2.5 % (0.0-5.0); BG FRACTION INSPIRED OXYGEN 35; BG HCO3 ACT 20.7 mmol/L (22.0-26.0); BG METHEMOGLOBIN 0.3 % (0.0-1.5); BG OXYGEN SATURATION 97.5 % (92.0-98.5); BG PCO2 28.5 mmHg (35.0-45.0); BG PH 7.479 (7.350-7.450); BG PO2 122.3 mmHg (75.0-100.0); BG SAMPLE SITE RIGHT RADIAL; BG TIDAL VOLUME(mL) 500 mL; BG TOTAL HEMOGLOBIN 10.7 g/dL (12.0-18.0); BG VENT MODE VENT - A/C; BG VENT RATE 20 set
[2019-02-23] MEDS: SODIUM BICARBONATE 50 MEQ in DEXTROSE 5% WATER 1,000 ML IV SCH ×2 (08:29→18:16)
[2019-02-23] MEDS: CITRIC ACID/SODIUM CITRATE SOLN 30ML UDC PO SCH ×3 (08:33→18:16)
[2019-02-23] MEDS: FAMOTIDINE 20MG TABLET PO SCH ×2 (08:33→20:23)
[2019-02-23] MEDS: ASCORBIC ACID 500 MG TABLET PO SCH ×2 (08:34→20:23)
[2019-02-23] MEDS: ZINC SULFATE 220 MG ( 50 ) CAPSULE PO SCH (08:34)
[2019-02-23] MEDS: AMLODIPINE 5MG TABLET PO SCH (08:34)
[2019-02-23 22:35] LABS: HEMATOCRIT. 29.1 % (42.0-52.0); HEMOGLOBIN. 9.9 g/dL (14.0-18.0); MEAN CORPUSCULAR HEMOGLOBIN 28.4 pg (28.0-32.0); MEAN CORPUSCULAR VOLUME 83.4 fL (80.0-94.0); PLATELET 151 x1000/uL (130-400); RED BLOOD CELL COUNT 3.49 mill/uL (4.7-6.1); RED CELL DISTRIBUTION WIDTH 16.5 % (11.6-14.6)
[2019-02-23 22:42] LABS: CHLORIDE 109 mEq/L (98-107)
[2019-02-23 23:21] LABS: NUCLEATED RED BLOOD CELLS 1 /100 WBC; PLATELET ESTIMATE NORMAL
[2019-02-24] VITALS (47 sets, daily range): BP systolic 112–136; BP diastolic 58–94
[2019-02-24] MEDS: SODIUM CHLORIDE 3% FOR INH 4ML UD NEB INH SCH (00:30)
[2019-02-24] MEDS: IPRATROPIUM/ALBUTEROL 0.5-3(2.5)MG/3ML NEB HHN SCH ×5 (00:31→20:11)
[2019-02-24] MEDS: SODIUM BICARBONATE 50 MEQ in DEXTROSE 5% WATER 1,000 ML IV SCH (04:46)
[2019-02-24] MEDS: MEROPENEM 1,000 MG in SODIUM CHLORIDE 0.9% 100 ML IV SCH ×3 (05:03→21:52)
[2019-02-24 05:23] LABS: HEMATOCRIT. 28.3 % (42.0-52.0); HEMOGLOBIN. 9.7 g/dL (14.0-18.0); MEAN CORPUSCULAR HEMOGLOBIN 28.4 pg (28.0-32.0); MEAN CORPUSCULAR VOLUME 82.8 fL (80.0-94.0); MEAN PLATELET VOLUME 7.1 fl (7.4-10.4); PLATELET 149 x1000/uL (130-400); RED BLOOD CELL COUNT 3.42 mill/uL (4.7-6.1); RED CELL DISTRIBUTION WIDTH 17.1 % (11.6-14.6)
[2019-02-24 05:24] LABS: CHLORIDE 107 mEq/L (98-107)
[2019-02-24 05:31] LABS: PHOSPHORUS 5.9 mg/dL (2.5-4.9)
[2019-02-24 09:16] LABS: BG BASE EXCESS -1.1 mmol/L (-2.0-2.0); BG CARBOXYHEMOGLOBIN 0.3 % (0.5-1.5); BG DEOXYHEMOGLOBIN 1.5 % (0.0-5.0); BG FRACTION INSPIRED OXYGEN 35; BG HCO3 ACT 22.2 mmol/L (22.0-26.0); BG METHEMOGLOBIN 0.4 % (0.0-1.5); BG OXYGEN SATURATION 98.5 % (92.0-98.5); BG OXYHEMOGLOBIN 97.8 % (94.0-97.0); BG PCO2 31.9 mmHg (35.0-45.0); BG PH 7.461 (7.350-7.450); BG PO2 150.7 mmHg (75.0-100.0); BG PRESSURE SUPPORT 14; BG SAMPLE SITE RIGHT RADIAL; BG TIDAL VOLUME(mL) 500 mL; BG TOTAL HEMOGLOBIN 9.3 g/dL (12.0-18.0); BG VENT MODE VENT - SIMV; BG VENT RATE 8 set
[2019-02-24] MEDS: AMLODIPINE 5MG TABLET PO SCH (09:50)
[2019-02-24] MEDS: ASCORBIC ACID 500 MG TABLET PO SCH ×2 (09:50→20:45)
[2019-02-24] MEDS: ZINC SULFATE 220 MG ( 50 ) CAPSULE PO SCH (09:50)
[2019-02-24] MEDS: FAMOTIDINE 20MG TABLET PO SCH ×2 (09:50→20:45)
[2019-02-24] MEDS ORDERED: POTASSIUM CHLORIDE INJ 40 MEQ in DEXT 5% WATER 250 ML IV NR (10:00)
[2019-02-24 12:31] LABS: PLATELET ESTIMATE NORMAL
[2019-02-24] MEDS: DEXT 5%/0.45% NACL 1000ML 1,000 ML IV SCH (14:40)
[2019-02-24] MEDS: ATROPINE SULFATE 1% OPHTH 2ML SL SCH (20:45)
[2019-02-25] VITALS (46 sets, daily range): BP systolic 109–136; BP diastolic 56–94
[2019-02-25] MEDS: IPRATROPIUM/ALBUTEROL 0.5-3(2.5)MG/3ML NEB HHN SCH ×6 (00:12→20:34)
[2019-02-25] MEDS: MEROPENEM 1,000 MG in SODIUM CHLORIDE 0.9% 100 ML IV SCH ×3 (05:35→21:26)
[2019-02-25] MEDS: DEXT 5%/0.45% NACL 1000ML 1,000 ML IV SCH ×2 (05:35→19:45)
[2019-02-25] MEDS: ATROPINE SULFATE 1% OPHTH 2ML SL SCH ×3 (05:36→21:25)
[2019-02-25 05:52] LABS: HEMATOCRIT. 25.9 % (42.0-52.0); HEMOGLOBIN. 8.7 g/dL (14.0-18.0); MEAN CORPUSCULAR HEMOGLOBIN 28.3 pg (28.0-32.0); MEAN CORPUSCULAR VOLUME 83.9 fL (80.0-94.0); MEAN PLATELET VOLUME 7.5 fl (7.4-10.4); PLATELET 157 x1000/uL (130-400); RED BLOOD CELL COUNT 3.08 mill/uL (4.7-6.1); RED CELL DISTRIBUTION WIDTH 16.9 % (11.6-14.6)
[2019-02-25 05:58] LABS: CHLORIDE 107 mEq/L (98-107)
[2019-02-25 06:08] LABS: PHOSPHORUS 5.7 mg/dL (2.5-4.9)
[2019-02-25] MEDS: FAMOTIDINE 20MG TABLET PO SCH ×2 (09:48→21:27)
[2019-02-25] MEDS: ZINC SULFATE 220 MG ( 50 ) CAPSULE PO SCH (09:48)
[2019-02-25] MEDS: ASCORBIC ACID 500 MG TABLET PO SCH ×2 (09:48→21:25)
[2019-02-25] MEDS: AMLODIPINE 5MG TABLET PO SCH (09:49)
[2019-02-25] MEDS ORDERED: MAGNESIUM 2 G PREMIX 50 ML IV NR (11:00)
[2019-02-25] MEDS: MORPHINE SULFATE 4 MG/ML CPJ (NOT FOR IM USE) IV PRN ×2 (11:54→22:47)
[2019-02-25 12:13] LABS: PLATELET ESTIMATE NORMAL
[2019-02-25] MEDS: ACETYLCYSTEINE 100MG/ML 10% VIAL 4ML INH SCH ×2 (12:25→16:36)
[2019-02-26] VITALS (13 sets, daily range): BP systolic 98–127; BP diastolic 55–83
[2019-02-26] MEDS: IPRATROPIUM/ALBUTEROL 0.5-3(2.5)MG/3ML NEB HHN SCH ×6 (00:36→21:38)
[2019-02-26] MEDS: MEROPENEM 1,000 MG in SODIUM CHLORIDE 0.9% 100 ML IV SCH ×3 (05:40→22:50)
[2019-02-26] MEDS: ATROPINE SULFATE 1% OPHTH 2ML SL SCH ×3 (05:40→22:00)
[2019-02-26 06:01] LABS: BASOPHILS % 0.7 % (0.0-2.0); EOSINOPHILS % 1.3 % (0.0-5.0); HEMOGLOBIN. 9.1 g/dL (14.0-18.0); LYMPHOCYTES % 7.2 % (20.0-50.0); MEAN CORPUSCULAR HEMOGLOBIN 28.4 pg (28.0-32.0); MEAN CORPUSCULAR VOLUME 84.6 fL (80.0-94.0); MEAN PLATELET VOLUME 7.1 fl (7.4-10.4); MONOCYTES % 3.9 % (2.0-8.0); NEUTROPHILS % 86.9 % (40.0-76.0); PLATELET 192 x1000/uL (130-400); RED CELL DISTRIBUTION WIDTH 17.2 % (11.6-14.6)
[2019-02-26 07:37] LABS: CHLORIDE 107 mEq/L (98-107)
[2019-02-26] MEDS: ACETYLCYSTEINE 100MG/ML 10% VIAL 4ML INH SCH (07:42)
[2019-02-26] MEDS: MORPHINE SULFATE 4 MG/ML CPJ (NOT FOR IM USE) IV PRN (08:43)
[2019-02-26] MEDS: FAMOTIDINE 20MG TABLET PO SCH ×2 (10:13→22:49)
[2019-02-26] MEDS: ZINC SULFATE 220 MG ( 50 ) CAPSULE PO SCH (10:13)
[2019-02-26] MEDS: ASCORBIC ACID 500 MG TABLET PO SCH ×2 (10:13→22:49)
[2019-02-26] MEDS: AMLODIPINE 5MG TABLET PO SCH (10:15)
[2019-02-26] MEDS ORDERED: KCL 20MEQ/100ML PREMIX 100 ML IV SCH (13:00)
[2019-02-26] MEDS: DEXT 5%/0.45% NACL 1000ML 1,000 ML IV SCH (15:12)
[2019-02-27] VITALS (12 sets, daily range): BP systolic 109–140; BP diastolic 68–99
[2019-02-27] MEDS: MORPHINE SULFATE 4 MG/ML CPJ (NOT FOR IM USE) IV PRN ×2 (00:28→15:23)
[2019-02-27] MEDS: IPRATROPIUM/ALBUTEROL 0.5-3(2.5)MG/3ML NEB HHN SCH ×6 (01:16→20:21)
[2019-02-27] MEDS: DEXT 5%/0.45% NACL 1000ML 1,000 ML IV SCH (03:01)
[2019-02-27] MEDS: ATROPINE SULFATE 1% OPHTH 2ML SL SCH ×3 (06:19→22:00)
[2019-02-27] MEDS: MEROPENEM 1,000 MG in SODIUM CHLORIDE 0.9% 100 ML IV SCH ×2 (06:20→13:44)
[2019-02-27 06:28] LABS: BASOPHILS % 0.4 % (0.0-2.0); EOSINOPHILS % 1.4 % (0.0-5.0); HEMOGLOBIN. 8.4 g/dL (14.0-18.0); LYMPHOCYTES % 9.4 % (20.0-50.0); MEAN CORPUSCULAR VOLUME 86.2 fL (80.0-94.0); MEAN PLATELET VOLUME 7.6 fl (7.4-10.4); MONOCYTES % 5.2 % (2.0-8.0); NEUTROPHILS % 83.6 % (40.0-76.0); PLATELET 206 x1000/uL (130-400)
[2019-02-27 07:42] LABS: CHLORIDE 112 mEq/L (98-107)
[2019-02-27] MEDS: ACETYLCYSTEINE 100MG/ML 10% VIAL 4ML INH SCH ×2 (08:40→16:25)
[2019-02-27] MEDS: FAMOTIDINE 20MG TABLET PO SCH ×2 (09:48→21:39)
[2019-02-27] MEDS: ZINC SULFATE 220 MG ( 50 ) CAPSULE PO SCH (09:49)
[2019-02-27] MEDS: ASCORBIC ACID 500 MG TABLET PO SCH ×3 (09:49→21:41)
[2019-02-27] MEDS: AMLODIPINE 5MG TABLET PO SCH (09:50)
[2019-02-27 12:49] LABS: CLARITY URINE TURBID (CLEAR); COLOR URINE RED (YELLOW); KETONES URINE TRACE (NEGATIVE); LEUKOCYTE ESTERASE URINE 1+ (NEGATIVE); NITRITE URINE NEGATIVE (NEGATIVE); OCCULT BLOOD URINE 3+ (NEGATIVE); PROTEIN URINE 2+ (NEGATIVE); SPECIFIC GRAVITY URINE 1.012 (1.005-1.030); UROBILINOGEN URINE 0.2 E.U./dL (0.2-1.0)
[2019-02-27] MEDS ORDERED: FUROSEMIDE 20MG/2ML VIAL IVP NR (13:00)
[2019-02-28] VITALS (12 sets, daily range): BP systolic 122–131; BP diastolic 71–84
[2019-02-28] MEDS: IPRATROPIUM/ALBUTEROL 0.5-3(2.5)MG/3ML NEB HHN SCH ×4 (00:35→13:11)
[2019-02-28] MEDS: ATROPINE SULFATE 1% OPHTH 2ML SL SCH ×3 (06:12→21:12)
[2019-02-28 06:30] LABS: HEMATOCRIT. 25.3 % (42.0-52.0); HEMOGLOBIN. 8.4 g/dL (14.0-18.0); MEAN CORPUSCULAR HEMOGLOBIN 28.9 pg (28.0-32.0); MEAN CORPUSCULAR VOLUME 87.2 fL (80.0-94.0); MEAN PLATELET VOLUME 8.2 fl (7.4-10.4); PLATELET 260 x1000/uL (130-400); RED CELL DISTRIBUTION WIDTH 17.8 % (11.6-14.6)
[2019-02-28 07:59] LABS: CHLORIDE 116 mEq/L (98-107)
[2019-02-28 08:04] LABS: PHOSPHORUS 5.2 mg/dL (2.5-4.9)
[2019-02-28] MEDS: ACETYLCYSTEINE 100MG/ML 10% VIAL 4ML INH SCH ×2 (09:23→17:51)
[2019-02-28] MEDS: FAMOTIDINE 20MG TABLET PO SCH (09:24)
[2019-02-28] MEDS: ZINC SULFATE 220 MG ( 50 ) CAPSULE PO SCH (09:25)
[2019-02-28] MEDS: AMLODIPINE 5MG TABLET PO SCH (09:25)
[2019-02-28] MEDS: MORPHINE SULFATE 4 MG/ML CPJ (NOT FOR IM USE) IV PRN ×2 (09:32→12:48)
[2019-02-28] MEDS: DEXTROSE 5% WATER 1,000 ML IV SCH (10:27)
[2019-02-28 13:27] LABS: PLATELET ESTIMATE NORMAL
[2019-02-28] MEDS: IPRATROPIUM/ALBUTEROL 0.5-3(2.5)MG/3ML NEB HHN PRN ×2 (17:51→20:42)
[2019-02-28] MEDS: ASCORBIC ACID 500 MG TABLET PO SCH (21:12)
[2019-03-01] VITALS (12 sets, daily range): BP systolic 107–137; BP diastolic 65–84
[2019-03-01] MEDS: ACETYLCYSTEINE 100MG/ML 10% VIAL 4ML INH SCH ×3 (00:36→15:58)
[2019-03-01] MEDS: IPRATROPIUM/ALBUTEROL 0.5-3(2.5)MG/3ML NEB HHN PRN ×2 (00:37→07:52)
[2019-03-01] MEDS: DEXTROSE 5% WATER 1,000 ML IV SCH (05:05)
[2019-03-01] MEDS: ATROPINE SULFATE 1% OPHTH 2ML SL SCH ×3 (05:05→21:57)
[2019-03-01 07:29] LABS: BASOPHILS % 0.2 % (0.0-2.0); HEMATOCRIT. 23.1 % (42.0-52.0); HEMOGLOBIN. 7.7 g/dL (14.0-18.0); LYMPHOCYTES % 9.5 % (20.0-50.0); MEAN CORPUSCULAR HEMOGLOBIN 29.5 pg (28.0-32.0); MEAN PLATELET VOLUME 8.2 fl (7.4-10.4); MONOCYTES % 4.9 % (2.0-8.0); NEUTROPHILS % 83.4 % (40.0-76.0); PLATELET 276 x1000/uL (130-400); RED CELL DISTRIBUTION WIDTH 18.6 % (11.6-14.6)
[2019-03-01] MEDS ORDERED: LEVOTHYROXINE SODIUM 25MCG TABLET PO SCH (07:30)
[2019-03-01] MEDS: AMLODIPINE 5MG TABLET PO SCH (08:03)
[2019-03-01] MEDS: ZINC SULFATE 220 MG ( 50 ) CAPSULE PO SCH (08:03)
[2019-03-01 08:14] LABS: CHLORIDE 114 mEq/L (98-107)
[2019-03-01 08:20] LABS: PHOSPHORUS 4.1 mg/dL (2.5-4.9)
[2019-03-01] MEDS ORDERED: POTASSIUM CHLORIDE 20MEQ/PACKET PEG SCH (11:00)
[2019-03-01] MEDS ORDERED: POTASSIUM CHLORIDE INJ 40 MEQ in DEXT 5% WATER 250 ML IV SCH (12:00)
[2019-03-01] MEDS: IPRATROPIUM/ALBUTEROL 0.5-3(2.5)MG/3ML NEB HHN SCH ×2 (15:57→21:01)
[2019-03-02] VITALS: BP 139/85
== END 2019-03-02 00:55 | DRG 3 ==
LOC: ER 19:34 → 7WST 01-31 01:29 → EDBEDREQ 01-31 01:31 → ENRESERV 01-31 21:13 → 5EST 02-07 11:37 → CVICU 02-08 14:25 → 5EST 02-26 01:49
PROVIDERS: ADMIT Internal Medicine; ATTEND Internal Medicine
PROC: 5A1955Z Respiratory Ventilation, Greater than 96 Consecutive Hours (ICD-10-PCS; principal; 2019-02-08)
PROC: 0BH17EZ Insertion of Endotracheal Airway into Trachea, Via Natural or Artificial Opening (ICD-10-PCS; 2019-02-08)
PROC: 4A00X4Z Measurement of Central Nervous Electrical Activity, External Approach (ICD-10-PCS; 2019-02-08)
PROC: 02H633Z Insertion of Infusion Device into Right Atrium, Percutaneous Approach (ICD-10-PCS; 2019-02-12)
PROC: B244ZZZ Ultrasonography of Right Heart (ICD-10-PCS; 2019-02-12)
PROC: 0W9B3ZZ Drainage of Left Pleural Cavity, Percutaneous Approach (ICD-10-PCS; 2019-02-12)
PROC: 0BH17EZ Insertion of Endotracheal Airway into Trachea, Via Natural or Artificial Opening (ICD-10-PCS; 2019-02-14)
PROC: 0B110F4 Bypass Trachea to Cutaneous with Tracheostomy Device, Open Approach (ICD-10-PCS; 2019-02-19)
PROC: 0DH63UZ Insertion of Feeding Device into Stomach, Percutaneous Approach (ICD-10-PCS; 2019-02-19)
PROC: 0GBJ0ZZ Excision of Thyroid Gland Isthmus, Open Approach (ICD-10-PCS; 2019-02-19)
PROC: 30233N1 Transfusion of Nonautologous Red Blood Cells into Peripheral Vein, Percutaneous Approach (ICD-10-PCS; 2019-02-19)
PROC: 3C1ZX8Z Irrigation of Indwelling Device using Irrigating Substance, External Approach (ICD-10-PCS; 2019-02-24)
DX: A41.9 Sepsis, unspecified organism (principal); J69.0 Pneumonitis due to inhalation of food and vomit; E43 Unspecified severe protein-calorie malnutrition; G92 Toxic encephalopathy; R65.21 Severe sepsis with septic shock; K66.1 Hemoperitoneum; R57.1 Hypovolemic shock; J96.01 Acute respiratory failure with hypoxia; E87.0 Hyperosmolality and hypernatremia; J90 Pleural effusion, not elsewhere classified; B37.49 Other urogenital candidiasis; D62 Acute posthemorrhagic anemia; K56.7 Ileus, unspecified; E87.2 Acidosis; E87.3 Alkalosis; N17.9 Acute kidney failure, unspecified; T17.890A Other foreign object in other parts of respiratory tract causing asphyxiation, initial encounter; N32.0 Bladder-neck obstruction; D63.8 Anemia in other chronic diseases classified elsewhere; E87.5 Hyperkalemia; R13.10 Dysphagia, unspecified; G71.00 Muscular dystrophy, unspecified; I10 Essential (primary) hypertension; E83.39 Other disorders of phosphorus metabolism; E83.42 Hypomagnesemia; K29.60 Other gastritis without bleeding; E87.6 Hypokalemia; N50.89 Other specified disorders of the male genital organs; X58.XXXA Exposure to other specified factors, initial encounter; Y93.89 Activity, other specified; Y92.89 Other specified places as the place of occurrence of the external cause; Y99.8 Other external cause status; Z99.3 Dependence on wheelchair; Z82.49 Family history of ischemic heart disease and other diseases of the circulatory system; Z68.29 Body mass index [BMI] 29.0-29.9, adult; Z78.1 Physical restraint status
CPT/HCPCS: 32555; 36415; 36569; 36600; 71045; 74018; 74176; 74177; 76770; 76870; 76937; 80048; 80150; 80202; 82375; 82550; 82553; 82607; 82746; 82805; 82962; 83036; 83605; 83615; 83735; 83880; 84100; 84145; 84439; 84443; 84478; 84481; 84484; 85027; 85379; 85384; 86850; 86900; 86920; 87070; 87102; 87106; 87116; 88108; 88312; 92610; 93005; 93970; 93976; 94002; 94003; 94640; 94667; 96365; 96375; 97162; 99284; 99285; A6261; C1725; J0278; J1450; J1650; J1940; J1956; J2060; J2185; J2250; J2270; J2370; J2405; J2543; J2704; J2765; J2930; J3010; J3370; J3430; J3475; J3480; J3490; J7030; J7040; J7042; J7050; J7060; J7070; J7131; J7608; J7620; P9016; Q9963; Q9967; A4315

== ENCOUNTER 2019-07-23 04:46 | Inpatient (IN) | payer MEDICARE, OTHER ==
[2019-07-23] VITALS (41 sets, daily range): BP systolic 102–123; BP diastolic 43–76
[~2019-07-23] VITALS: Ht 175.3 cm; Wt 79.5 kg
[~2019-07-23 04:46] MED LIST: LEVO250T58 PO; METR250T36 PO; PROSOL IH
[2019-07-23] MEDS ORDERED: MORPHINE SULFATE 4 MG/ML CPJ (NOT FOR IM USE) IV STA (05:12)
[2019-07-23] MEDS ORDERED: ACETAMINOPHEN 325MG TABLET GT STA (05:12)
[2019-07-23] MEDS ORDERED: ONDANSETRON HCL 4MG/2ML INJ IV STA (05:12)
[2019-07-23] MEDS ORDERED: PIPERACILLIN/TAZ 3.375G PREMIX 50 ML IV ONE (05:15)
[2019-07-23] MEDS ORDERED: SODIUM CHLORIDE 0.9% 1000ML BAG (SEPSIS BOLUS) IV ONE (05:15)
[2019-07-23] MEDS ORDERED: VANCOMYCIN 1 G PREMIX 200 ML IV ONE (05:15)
[2019-07-23 05:36] LABS: HEMATOCRIT. 23.5 % (42.0-52.0); HEMOGLOBIN. 7.6 g/dL (14.0-18.0); MEAN CORPUSCULAR VOLUME 80.3 fL (80.0-94.0); MEAN PLATELET VOLUME 8.6 fl (7.4-10.4); PLATELET 213 x1000/uL (130-400); RED BLOOD CELL COUNT 2.92 mill/uL (4.7-6.1); RED CELL DISTRIBUTION WIDTH 15.2 % (11.6-14.6)
[2019-07-23 06:01] LABS: INR 1.6; PROTHROMBIN TIME 15.6 sec (9.6-11.0)
[2019-07-23 06:17] LABS: PLATELET ESTIMATE NORMAL
[2019-07-23 06:21] LABS: BG BASE EXCESS 1.4 mmol/L (-2.0-2.0); BG CARBOXYHEMOGLOBIN 0.3 % (0.5-1.5); BG DEOXYHEMOGLOBIN 3.6 % (0.0-5.0); BG HCO3 ACT 28.1 mmol/L (22.0-26.0); BG METHEMOGLOBIN 0.1 % (0.0-1.5); BG OXYGEN SATURATION 96.4 % (92.0-98.5); BG PCO2 55.1 mmHg (35.0-45.0); BG PH 7.325 (7.350-7.450); BG PO2 94.8 mmHg (75.0-100.0); BG SAMPLE SITE LEFT RADIAL; BG TOTAL HEMOGLOBIN 10.1 g/dL (12.0-18.0); BG VENT MODE T-TUBE
[2019-07-23 06:31] LABS: CLARITY URINE CLOUDY (CLEAR); COLOR URINE YELLOW (YELLOW); KETONES URINE NEGATIVE (NEGATIVE); LEUKOCYTE ESTERASE URINE 3+ (NEGATIVE); NITRITE URINE NEGATIVE (NEGATIVE); OCCULT BLOOD URINE 2+ (NEGATIVE); PROTEIN URINE 1+ (NEGATIVE); SPECIFIC GRAVITY URINE 1.015 (1.005-1.030); UROBILINOGEN URINE 0.2 E.U./dL (0.2-1.0)
[2019-07-23] MEDS ORDERED: SODIUM CHLORIDE 0.9% 1,000 ML IV ONE (06:57)
[2019-07-23 07:18] LABS: CHLORIDE 107 mEq/L (98-107)
[2019-07-23] MEDS: DEXT 5%/0.45% NACL 1000ML 1,000 ML IV SCH ×2 (08:25→15:24)
[2019-07-23] MEDS ORDERED: MAGNESIUM/ALUMINUM HYDROXIDE/SIMETHICONE 30ML UDC PO PRN (08:30)
[2019-07-23] MEDS ORDERED: GUAIFENESIN 200MG/10ML SUGAR FREE UDC PO PRN (08:30)
[2019-07-23] MEDS ORDERED: DILTIAZEM HCL 5MG/ML 5ML VIAL IV ONE (08:30)
[2019-07-23] MEDS ORDERED: CLONIDINE 0.1MG TABLET PO PRN (08:30)
[2019-07-23] MEDS ORDERED: HYDROCODONE/ACETAMINOPHEN 5/325MG TABLET PO PRN (08:30)
[2019-07-23] MEDS ORDERED: IPRATROPIUM/ALBUTEROL 0.5-3(2.5)MG/3ML NEB INH PRN (08:30)
[2019-07-23] MEDS ORDERED: LORAZEPAM 2MG/ML CPJ IV PRN (08:30)
[2019-07-23] MEDS ORDERED: DOCUSATE SODIUM 100MG CAPSULE PO PRN (08:30)
[2019-07-23] MEDS ORDERED: NA PHOS,M-B/NA PHOS,DI-BA ENEMA 118ML PR PRN (08:30)
[2019-07-23] MEDS ORDERED: DIPHENHYDRAMINE 50MG/ML VIAL IV PRN (08:30)
[2019-07-23] MEDS ORDERED: DILTIAZEM HCL 125 MG in DEXT 5% WATER 100 ML IV ONE ×4 (08:45)
[2019-07-23] MEDS ORDERED: METOPROLOL TARTRATE 25MG TABLET GT ONE (09:00)
[2019-07-23] MEDS ORDERED: METOPROLOL TARTRATE 25MG TABLET PO NR (09:30)
[2019-07-23] MEDS ORDERED: AMIODARONE HCL 900 MG in DEXT 5% WATER 482 ML IV SCH (11:00)
[2019-07-23] MEDS: AMIODARONE HCL 900 MG in DEXT 5% WATER 482 ML IV PRN (11:11)
[2019-07-23] MEDS: METOPROLOL TARTRATE 25MG TABLET PO SCH ×2 (13:00→23:30)
[2019-07-23] MEDS: PIPERACILLIN/TAZOBACTAM 3.375 G in DEXT 5% WATER 100 ML IV SCH ×2 (13:01→23:18)
[2019-07-23] MEDS: ASPIRIN 81MG EC TABLET PO SCH (13:01)
[2019-07-23] MEDS: AMLODIPINE 10MG TABLET PO SCH (13:01)
[2019-07-23] MEDS ORDERED: VANCOMYCIN 1500MG in DEXTROSE 5% WATER 250ML IV SCH (14:00)
[2019-07-23] MEDS: ENOXAPARIN 40MG/0.4ML SYR SUBCUT SCH (14:18)
[2019-07-23] MEDS ORDERED: VANCOMYCIN 500 MG PREMIX 100 ML IV SCH (16:00)
[2019-07-23] MEDS ORDERED: DIGOXIN 500MCG/2ML AMP IV NR (18:45)
[2019-07-23 19:08] LABS: CREATINE KINASE MB FRACTION 12.5 ng/mL (0.5-3.6)
[2019-07-24] VITALS (88 sets, daily range): BP systolic 109–150; BP diastolic 45–93
[2019-07-24 00:19] LABS: CREATINE KINASE 283 IU/L (39-308)
[2019-07-24 05:12] LABS: RED CELL DISTRIBUTION WIDTH 15.4 % (11.6-14.6)
[2019-07-24 05:18] LABS: CHLORIDE 102 mEq/L (98-107)
[2019-07-24 05:26] LABS: CREATINE KINASE MB FRACTION 7.3 ng/mL (0.5-3.6)
[2019-07-24 05:27] LABS: LDL CHOLESTEROL 50 mg/dL (5-100)
[2019-07-24 05:28] LABS: CREATINE KINASE 146 IU/L (39-308); HDL CHOLESTEROL 13 mg/dL (40-59); T4 FREE 1.38 ng/dL (0.76-1.46)
[2019-07-24] MEDS: DEXT 5%/0.45% NACL 1000ML 1,000 ML IV SCH ×2 (05:28→14:51)
[2019-07-24] MEDS: PIPERACILLIN/TAZOBACTAM 3.375 G in DEXT 5% WATER 100 ML IV SCH ×3 (05:28→23:03)
[2019-07-24 05:43] LABS: MEAN CORPUSCULAR HEMOGLOBIN 25.5 pg (28.0-32.0); MEAN CORPUSCULAR VOLUME 79.3 fL (80.0-94.0); MEAN PLATELET VOLUME 9.4 fl (7.4-10.4); PLATELET 275 x1000/uL (130-400); RED BLOOD CELL COUNT 3.82 mill/uL (4.7-6.1)
[2019-07-24 05:46] LABS: HEMATOCRIT. 30.3 % (42.0-52.0); HEMOGLOBIN. 9.7 g/dL (14.0-18.0)
[2019-07-24] MEDS ORDERED: POTASSIUM CHLORIDE 20MEQ/PACKET PO NR (07:15)
[2019-07-24] MEDS ORDERED: POTASSIUM CHLORIDE INJ 40 MEQ in DEXT 5% WATER 500 ML IV NR (08:00)
[2019-07-24 08:08] LABS: PLATELET ESTIMATE NORMAL
[2019-07-24] MEDS: ASPIRIN 81MG EC TABLET PO SCH (08:18)
[2019-07-24] MEDS: AMLODIPINE 10MG TABLET PO SCH (08:19)
[2019-07-24] MEDS: ENOXAPARIN 40MG/0.4ML SYR SUBCUT SCH (08:19)
[2019-07-24] MEDS: METOPROLOL TARTRATE 25MG TABLET PO SCH (08:19)
[2019-07-24] MEDS: LANSOPRAZOLE 30MG DR CAPSULE NG SCH (08:20)
[2019-07-24] MEDS: AMIODARONE HCL 900 MG in DEXT 5% WATER 482 ML IV PRN (08:43)
[2019-07-24 09:39] LABS: PHOSPHORUS 1.6 mg/dL (2.5-4.9)
[2019-07-24] MEDS ORDERED: VANCOMYCIN 1250MG in DEXTROSE 5% WATER 250ML IV SCH (10:30)
[2019-07-24] MEDS ORDERED: DIATR MEGLU/DIATRIZOATE SOLN 30ML PO SCH (11:15)
[2019-07-24] MEDS ORDERED: MAGNESIUM 2 G PREMIX 50 ML IV NR (12:00)
[2019-07-24] MEDS ORDERED: METOPROLOL TARTRATE 50MG TABLET PO SCH ×2 (13:00→21:00)
[2019-07-24] MEDS ORDERED: IOHEXOL-300 100 ML BOTTLE ONE (17:18)
[2019-07-24] MEDS: METOPROLOL TARTRATE 50MG TABLET PO SCH (17:22)
[2019-07-24] MEDS ORDERED: METOPROLOL TARTRATE 25MG TABLET PO SCH (21:00)
[2019-07-24] MEDS: ACETAMINOPHEN 325MG TABLET PO PRN (23:04)
[2019-07-25] VITALS (90 sets, daily range): BP systolic 97–149; BP diastolic 55–86
[2019-07-25] MEDS: DEXT 5%/0.45% NACL 1000ML 1,000 ML IV SCH ×2 (01:49→08:43)
[2019-07-25 05:14] LABS: HEMATOCRIT. 30.5 % (42.0-52.0); HEMOGLOBIN. 9.7 g/dL (14.0-18.0); MEAN CORPUSCULAR HEMOGLOBIN 25.3 pg (28.0-32.0); MEAN CORPUSCULAR VOLUME 79.8 fL (80.0-94.0); MEAN PLATELET VOLUME 9.5 fl (7.4-10.4); PLATELET 319 x1000/uL (130-400); RED BLOOD CELL COUNT 3.82 mill/uL (4.7-6.1)
[2019-07-25 05:25] LABS: CHLORIDE 101 mEq/L (98-107)
[2019-07-25 05:36] LABS: PHOSPHORUS 2.1 mg/dL (2.5-4.9)
[2019-07-25 06:50] LABS: PLATELET ESTIMATE NORMAL
[2019-07-25] MEDS: PIPERACILLIN/TAZOBACTAM 3.375 G in DEXT 5% WATER 100 ML IV SCH ×3 (06:58→21:17)
[2019-07-25] MEDS: METOPROLOL TARTRATE 50MG TABLET PO SCH (07:14)
[2019-07-25 08:14] LABS: BG BASE EXCESS 1.9 mmol/L (-2.0-2.0); BG CARBOXYHEMOGLOBIN 0.4 % (0.5-1.5); BG DEOXYHEMOGLOBIN 2.5 % (0.0-5.0); BG FRACTION INSPIRED OXYGEN 40; BG HCO3 ACT 29.5 mmol/L (22.0-26.0); BG METHEMOGLOBIN 0.5 % (0.0-1.5); BG OXYGEN SATURATION 97.5 % (92.0-98.5); BG OXYHEMOGLOBIN 96.6 % (94.0-97.0); BG PCO2 62.4 mmHg (35.0-45.0); BG PH 7.292 (7.350-7.450); BG PO2 98.2 mmHg (75.0-100.0); BG SAMPLE SITE RIGHT RADIAL; BG TOTAL HEMOGLOBIN 10.7 g/dL (12.0-18.0); BG VENT MODE MASK - TRACH
[2019-07-25] MEDS: ASPIRIN 81MG EC TABLET PO SCH (08:42)
[2019-07-25] MEDS: ENOXAPARIN 40MG/0.4ML SYR SUBCUT SCH (08:42)
[2019-07-25] MEDS: VANCOMYCIN 750 MG PREMIX 150 ML IV SCH ×2 (08:42→21:46)
[2019-07-25] MEDS: AMLODIPINE 10MG TABLET PO SCH (08:42)
[2019-07-25] MEDS: LANSOPRAZOLE 30MG DR CAPSULE NG SCH (08:43)
[2019-07-25] MEDS ORDERED: POTASSIUM PHOS,M-BASIC-D-BASIC 15 MMOL in DEXT 5% WATER 245 ML IV SCH (10:00)
[2019-07-25] MEDS ORDERED: POTASSIUM CHLORIDE INJ 40 MEQ in DEXT 5% WATER 250 ML IV SCH (10:00)
[2019-07-25] MEDS: MORPHINE SULFATE 2 MG/ML CPJ (NOT FOR IM USE) IV PRN ×2 (10:18→21:29)
[2019-07-25 10:48] LABS: BG BASE EXCESS 2.7 mmol/L (-2.0-2.0); BG CARBOXYHEMOGLOBIN 0.3 % (0.5-1.5); BG DEOXYHEMOGLOBIN 0.6 % (0.0-5.0); BG FRACTION INSPIRED OXYGEN 60; BG HCO3 ACT 26.8 mmol/L (22.0-26.0); BG METHEMOGLOBIN 0.3 % (0.0-1.5); BG OXYGEN SATURATION 99.4 % (92.0-98.5); BG OXYHEMOGLOBIN 98.8 % (94.0-97.0); BG PCO2 39.3 mmHg (35.0-45.0); BG PH 7.451 (7.350-7.450); BG PO2 160.9 mmHg (75.0-100.0); BG SAMPLE SITE RIGHT RADIAL; BG TIDAL VOLUME(mL) 500 mL; BG TOTAL HEMOGLOBIN 10.1 g/dL (12.0-18.0); BG VENT MODE VENT - A/C
[2019-07-25] MEDS: IPRATROPIUM BROMIDE (0.02%) 0.5MG/2.5ML NEB HHN SCH ×3 (12:28→20:29)
[2019-07-25] MEDS: METOPROLOL TARTRATE 25MG TABLET PO SCH ×2 (13:09→21:28)
[2019-07-25] MEDS: ACETAMINOPHEN 325MG TABLET PO PRN (13:09)
[2019-07-25] MEDS: AMIODARONE HCL 900 MG in DEXT 5% WATER 482 ML IV PRN (14:07)
[2019-07-25] MEDS: ACETAMINOPHEN 650MG/20.3ML UDC PO PRN (21:29)
[2019-07-26] VITALS (41 sets, daily range): BP systolic 103–153; BP diastolic 61–90
[2019-07-26] MEDS: IPRATROPIUM BROMIDE (0.02%) 0.5MG/2.5ML NEB HHN SCH ×5 (00:15→20:18)
[2019-07-26] MEDS: DEXT 5%/0.45% NACL 1000ML 1,000 ML IV SCH ×2 (04:30→18:14)
[2019-07-26] MEDS: PIPERACILLIN/TAZOBACTAM 3.375 G in DEXT 5% WATER 100 ML IV SCH (05:56)
[2019-07-26] MEDS: METOPROLOL TARTRATE 25MG TABLET PO SCH ×3 (05:57→22:00)
[2019-07-26 06:17] LABS: CHLORIDE 101 mEq/L (98-107)
[2019-07-26 06:25] LABS: HEMATOCRIT. 29.7 % (42.0-52.0); HEMOGLOBIN. 9.7 g/dL (14.0-18.0); MEAN CORPUSCULAR HEMOGLOBIN 25.6 pg (28.0-32.0); MEAN CORPUSCULAR VOLUME 78.3 fL (80.0-94.0); MEAN PLATELET VOLUME 9.4 fl (7.4-10.4); PLATELET 334 x1000/uL (130-400); RED BLOOD CELL COUNT 3.79 mill/uL (4.7-6.1); RED CELL DISTRIBUTION WIDTH 15.6 % (11.6-14.6)
[2019-07-26 06:30] LABS: PHOSPHORUS 1.8 mg/dL (2.5-4.9)
[2019-07-26] MEDS ORDERED: POTASSIUM PHOS,M-BASIC-D-BASIC 20 MMOL in DEXT 5% WATER 243.3333 ML IV NR (07:00)
[2019-07-26 07:22] LABS: NUCLEATED RED BLOOD CELLS 1 /100 WBC; PLATELET ESTIMATE NORMAL
[2019-07-26] MEDS: MORPHINE SULFATE 2 MG/ML CPJ (NOT FOR IM USE) IV PRN (07:59)
[2019-07-26] MEDS: LANSOPRAZOLE 30MG DR CAPSULE NG SCH (07:59)
[2019-07-26] MEDS: ENOXAPARIN 40MG/0.4ML SYR SUBCUT SCH (08:01)
[2019-07-26] MEDS: AMLODIPINE 10MG TABLET PO SCH (08:01)
[2019-07-26] MEDS: ASPIRIN 81MG EC TABLET PO SCH (08:01)
[2019-07-26 08:12] LABS: BG BASE EXCESS 1.8 mmol/L (-2.0-2.0); BG CARBOXYHEMOGLOBIN 0.3 % (0.5-1.5); BG DEOXYHEMOGLOBIN 1.1 % (0.0-5.0); BG FRACTION INSPIRED OXYGEN 40; BG HCO3 ACT 24.1 mmol/L (22.0-26.0); BG METHEMOGLOBIN 0.2 % (0.0-1.5); BG OXYGEN SATURATION 98.9 % (92.0-98.5); BG OXYHEMOGLOBIN 98.4 % (94.0-97.0); BG PCO2 29.9 mmHg (35.0-45.0); BG PH 7.525 (7.350-7.450); BG PO2 141.2 mmHg (75.0-100.0); BG SAMPLE SITE RIGHT RADIAL; BG TIDAL VOLUME(mL) 500 mL; BG TOTAL HEMOGLOBIN 10.1 g/dL (12.0-18.0); BG VENT MODE VENT - A/C; BG VENT RATE 14 set
[2019-07-26] MEDS: VANCOMYCIN 1 G PREMIX 200 ML IV SCH ×2 (11:09→23:32)
[2019-07-26] MEDS: CEFTAZIDIME PENTAHYDRATE 1 G in DEXTROSE 5% WATER 50 ML IV SCH ×2 (13:21→21:58)
[2019-07-26] MEDS: ONDANSETRON HCL 4MG/2ML INJ IV PRN ×2 (14:27→18:30)
[2019-07-26] MEDS: ACETYLCYSTEINE 100MG/ML 10% VIAL 4ML INH SCH (16:01)
[2019-07-27] VITALS (22 sets, daily range): BP systolic 108–132; BP diastolic 61–91
[2019-07-27] MEDS ORDERED: ACETAMINOPHEN 650MG SUPP PR PRN
[2019-07-27] MEDS: IPRATROPIUM BROMIDE (0.02%) 0.5MG/2.5ML NEB HHN SCH ×6 (00:29→20:47)
[2019-07-27] MEDS: ACETYLCYSTEINE 100MG/ML 10% VIAL 4ML INH SCH ×3 (00:29→16:19)
[2019-07-27 05:49] LABS: HEMATOCRIT. 26.7 % (42.0-52.0); HEMOGLOBIN. 8.8 g/dL (14.0-18.0); MEAN CORPUSCULAR HEMOGLOBIN 25.2 pg (28.0-32.0); MEAN CORPUSCULAR VOLUME 76.7 fL (80.0-94.0); MEAN PLATELET VOLUME 8.8 fl (7.4-10.4); PLATELET 281 x1000/uL (130-400); RED BLOOD CELL COUNT 3.48 mill/uL (4.7-6.1); RED CELL DISTRIBUTION WIDTH 15.4 % (11.6-14.6)
[2019-07-27 05:56] LABS: CHLORIDE 102 mEq/L (98-107)
[2019-07-27] MEDS: METOPROLOL TARTRATE 25MG TABLET PO SCH ×3 (06:00→22:57)
[2019-07-27 06:03] LABS: PHOSPHORUS 2.9 mg/dL (2.5-4.9)
[2019-07-27] MEDS: CEFTAZIDIME PENTAHYDRATE 1 G in DEXTROSE 5% WATER 50 ML IV SCH ×3 (06:26→22:57)
[2019-07-27 08:19] LABS: BG BASE EXCESS 4.8 mmol/L (-2.0-2.0); BG CARBOXYHEMOGLOBIN 0.2 % (0.5-1.5); BG DEOXYHEMOGLOBIN 0.8 % (0.0-5.0); BG FRACTION INSPIRED OXYGEN 40; BG HCO3 ACT 26.7 mmol/L (22.0-26.0); BG METHEMOGLOBIN 0.3 % (0.0-1.5); BG OXYGEN SATURATION 99.2 % (92.0-98.5); BG OXYHEMOGLOBIN 98.7 % (94.0-97.0); BG PCO2 29.9 mmHg (35.0-45.0); BG PH 7.569 (7.350-7.450); BG PO2 174.8 mmHg (75.0-100.0); BG SAMPLE SITE RIGHT RADIAL; BG TIDAL VOLUME(mL) 500 mL; BG TOTAL HEMOGLOBIN 9.5 g/dL (12.0-18.0); BG VENT MODE VENT - A/C; BG VENT RATE 12 set
[2019-07-27] MEDS ORDERED: POTASSIUM CHLORIDE INJ 40 MEQ in DEXT 5% WATER 250 ML IV SCH (09:00)
[2019-07-27] MEDS ORDERED: MAGNESIUM 2 G PREMIX 50 ML IV SCH (09:00)
[2019-07-27] MEDS: LANSOPRAZOLE 30MG DR CAPSULE NG SCH (09:04)
[2019-07-27] MEDS: ASPIRIN 81MG EC TABLET PO SCH (09:04)
[2019-07-27] MEDS: AMLODIPINE 10MG TABLET PO SCH (09:04)
[2019-07-27] MEDS: ENOXAPARIN 40MG/0.4ML SYR SUBCUT SCH (09:05)
[2019-07-27] MEDS: DEXT 5%/0.45% NACL 1000ML 1,000 ML IV SCH (09:05)
[2019-07-27 10:18] LABS: PLATELET ESTIMATE NORMAL
[2019-07-27] MEDS: METOCLOPRAMIDE HCL 10MG/2ML VIAL IV SCH ×3 (11:47→22:58)
[2019-07-27] MEDS: VANCOMYCIN 1250MG in DEXTROSE 5% WATER 250ML IV SCH (15:39)
[2019-07-27] MEDS ORDERED: METRONIDAZOLE 500 MG PREMIX 100 ML IV SCH (18:00)
[2019-07-27] MEDS: METRONIDAZOLE 500 MG PREMIX 100 ML IV SCH (19:07)
[2019-07-28] VITALS (12 sets, daily range): BP systolic 100–128; BP diastolic 56–82
[2019-07-28] MEDS: IPRATROPIUM BROMIDE (0.02%) 0.5MG/2.5ML NEB HHN SCH ×6 (00:18→20:16)
[2019-07-28] MEDS: ACETYLCYSTEINE 100MG/ML 10% VIAL 4ML INH SCH ×3 (00:18→16:18)
[2019-07-28] MEDS: ACETAMINOPHEN 650MG/20.3ML UDC PO PRN ×2 (00:29→15:43)
[2019-07-28] MEDS: VANCOMYCIN 1250MG in DEXTROSE 5% WATER 250ML IV SCH ×2 (02:22→15:32)
[2019-07-28] MEDS: METOPROLOL TARTRATE 25MG TABLET PO SCH ×3 (06:00→21:23)
[2019-07-28] MEDS: CEFTAZIDIME PENTAHYDRATE 1 G in DEXTROSE 5% WATER 50 ML IV SCH ×3 (06:52→21:22)
[2019-07-28] MEDS: METRONIDAZOLE 500 MG PREMIX 100 ML IV SCH ×2 (06:52→18:13)
[2019-07-28] MEDS: METOCLOPRAMIDE HCL 10MG/2ML VIAL IV SCH ×3 (06:52→18:13)
[2019-07-28 07:56] LABS: HEMATOCRIT. 25.8 % (42.0-52.0); HEMOGLOBIN. 8.4 g/dL (14.0-18.0); MEAN CORPUSCULAR HEMOGLOBIN 25.1 pg (28.0-32.0); MEAN CORPUSCULAR VOLUME 77.4 fL (80.0-94.0); MEAN PLATELET VOLUME 8.9 fl (7.4-10.4); PLATELET 327 x1000/uL (130-400); RED BLOOD CELL COUNT 3.33 mill/uL (4.7-6.1); RED CELL DISTRIBUTION WIDTH 15.2 % (11.6-14.6)
[2019-07-28 08:09] LABS: CHLORIDE 106 mEq/L (98-107)
[2019-07-28 08:23] LABS: PHOSPHORUS 2.2 mg/dL (2.5-4.9)
[2019-07-28 09:32] LABS: BG CARBOXYHEMOGLOBIN 0.3 % (0.5-1.5); BG DEOXYHEMOGLOBIN 1.6 % (0.0-5.0); BG FRACTION INSPIRED OXYGEN 40; BG HCO3 ACT 23.1 mmol/L (22.0-26.0); BG METHEMOGLOBIN 0.6 % (0.0-1.5); BG OXYGEN SATURATION 98.4 % (92.0-98.5); BG OXYHEMOGLOBIN 97.5 % (94.0-97.0); BG PCO2 31.6 mmHg (35.0-45.0); BG PH 7.482 (7.350-7.450); BG PO2 134.5 mmHg (75.0-100.0); BG SAMPLE SITE RIGHT RADIAL; BG TIDAL VOLUME(mL) 500 mL; BG TOTAL HEMOGLOBIN 8.9 g/dL (12.0-18.0); BG VENT MODE VENT - A/C; BG VENT RATE 12 set
[2019-07-28] MEDS: LANSOPRAZOLE 30MG DR CAPSULE NG SCH (09:39)
[2019-07-28] MEDS: ENOXAPARIN 40MG/0.4ML SYR SUBCUT SCH (09:39)
[2019-07-28] MEDS: AMLODIPINE 10MG TABLET PO SCH (09:42)
[2019-07-28] MEDS: ASPIRIN 81MG EC TABLET PO SCH (10:11)
[2019-07-28] MEDS ORDERED: POTASSIUM PHOS,M-BASIC-D-BASIC 30 MMOL in DEXT 5% WATER 500 ML IV ONE (11:30)
[2019-07-29] VITALS (12 sets, daily range): BP systolic 97–114; BP diastolic 55–66
[2019-07-29] MEDS: METOCLOPRAMIDE HCL 10MG/2ML VIAL IV SCH ×4 (00:07→18:08)
[2019-07-29] MEDS: DEXT 5%/0.45% NACL 1000ML 1,000 ML IV SCH (00:08)
[2019-07-29] MEDS: ACETYLCYSTEINE 100MG/ML 10% VIAL 4ML INH SCH ×3 (00:31→16:43)
[2019-07-29] MEDS: IPRATROPIUM BROMIDE (0.02%) 0.5MG/2.5ML NEB HHN SCH ×6 (00:31→20:53)
[2019-07-29] MEDS: VANCOMYCIN 1250MG in DEXTROSE 5% WATER 250ML IV SCH ×2 (02:29→15:03)
[2019-07-29 04:46] LABS: PLATELET ESTIMATE NORMAL
[2019-07-29] MEDS: CEFTAZIDIME PENTAHYDRATE 1 G in DEXTROSE 5% WATER 50 ML IV SCH ×3 (05:07→21:09)
[2019-07-29] MEDS: METRONIDAZOLE 500 MG PREMIX 100 ML IV SCH ×2 (05:07→18:08)
[2019-07-29] MEDS: METOPROLOL TARTRATE 25MG TABLET PO SCH ×3 (05:09→21:09)
[2019-07-29 08:17] LABS: CHLORIDE 105 mEq/L (98-107)
[2019-07-29 08:24] LABS: PHOSPHORUS 2.9 mg/dL (2.5-4.9)
[2019-07-29] MEDS: ENOXAPARIN 40MG/0.4ML SYR SUBCUT SCH (08:47)
[2019-07-29] MEDS: AMLODIPINE 10MG TABLET PO SCH (08:48)
[2019-07-29] MEDS: ASPIRIN 81MG EC TABLET PO SCH (08:48)
[2019-07-29] MEDS: LANSOPRAZOLE 30MG DR CAPSULE NG SCH (08:49)
[2019-07-29] MEDS ORDERED: MAGNESIUM 2 G PREMIX 50 ML IV NR (17:00)
[2019-07-29] MEDS: FAMOTIDINE 20MG TABLET GT SCH (21:09)
[2019-07-30] VITALS (11 sets, daily range): BP systolic 108–145; BP diastolic 62–98
[2019-07-30] MEDS: IPRATROPIUM BROMIDE (0.02%) 0.5MG/2.5ML NEB HHN SCH ×6 (00:13→19:47)
[2019-07-30] MEDS: ACETYLCYSTEINE 100MG/ML 10% VIAL 4ML INH SCH ×4 (00:13→15:59)
[2019-07-30] MEDS: METOCLOPRAMIDE HCL 10MG/2ML VIAL IV SCH ×5 (00:21→23:26)
[2019-07-30] MEDS: VANCOMYCIN 1250MG in DEXTROSE 5% WATER 250ML IV SCH ×2 (02:41→13:03)
[2019-07-30] MEDS: CEFTAZIDIME PENTAHYDRATE 1 G in DEXTROSE 5% WATER 50 ML IV SCH ×3 (05:54→22:31)
[2019-07-30] MEDS: METOPROLOL TARTRATE 25MG TABLET PO SCH ×3 (05:54→22:32)
[2019-07-30] MEDS: METRONIDAZOLE 500 MG PREMIX 100 ML IV SCH ×2 (06:35→17:34)
[2019-07-30 06:40] LABS: HEMATOCRIT. 23.1 % (42.0-52.0); HEMOGLOBIN. 7.6 g/dL (14.0-18.0); MEAN CORPUSCULAR HEMOGLOBIN 25.7 pg (28.0-32.0); MEAN CORPUSCULAR VOLUME 78.2 fL (80.0-94.0); MEAN PLATELET VOLUME 8.7 fl (7.4-10.4); PLATELET 374 x1000/uL (130-400); RED BLOOD CELL COUNT 2.96 mill/uL (4.7-6.1); RED CELL DISTRIBUTION WIDTH 15.1 % (11.6-14.6)
[2019-07-30 07:13] LABS: CHLORIDE 106 mEq/L (98-107)
[2019-07-30] MEDS: ENOXAPARIN 40MG/0.4ML SYR SUBCUT SCH ×2 (09:00→09:16)
[2019-07-30] MEDS: FAMOTIDINE 20MG TABLET GT SCH ×2 (09:16→22:31)
[2019-07-30] MEDS: DEXT 5%/0.45% NACL 1000ML 1,000 ML IV SCH (09:16)
[2019-07-30] MEDS: AMLODIPINE 10MG TABLET PO SCH (09:16)
[2019-07-30] MEDS: ASPIRIN 81MG EC TABLET PO SCH (09:16)
[2019-07-31] VITALS (17 sets, daily range): BP systolic 96–130; BP diastolic 58–71
[2019-07-31] MEDS: IPRATROPIUM BROMIDE (0.02%) 0.5MG/2.5ML NEB HHN SCH ×6 (01:11→20:10)
[2019-07-31] MEDS: VANCOMYCIN 1250MG in DEXTROSE 5% WATER 250ML IV SCH (01:56)
[2019-07-31 05:25] LABS: PLATELET ESTIMATE NORMAL
[2019-07-31] MEDS: METOCLOPRAMIDE HCL 10MG/2ML VIAL IV SCH ×3 (05:28→17:32)
[2019-07-31] MEDS: METOPROLOL TARTRATE 25MG TABLET PO SCH ×3 (05:28→22:20)
[2019-07-31 06:25] LABS: CHLORIDE 104 mEq/L (98-107)
[2019-07-31 06:33] LABS: HEMATOCRIT. 24.1 % (42.0-52.0); HEMOGLOBIN. 7.7 g/dL (14.0-18.0); MEAN CORPUSCULAR HEMOGLOBIN 25.3 pg (28.0-32.0); MEAN CORPUSCULAR VOLUME 78.7 fL (80.0-94.0); MEAN PLATELET VOLUME 8.6 fl (7.4-10.4); PLATELET 468 x1000/uL (130-400); RED BLOOD CELL COUNT 3.06 mill/uL (4.7-6.1); RED CELL DISTRIBUTION WIDTH 15.5 % (11.6-14.6)
[2019-07-31] MEDS: METRONIDAZOLE 500 MG PREMIX 100 ML IV SCH ×2 (07:09→17:22)
[2019-07-31] MEDS: CEFTAZIDIME PENTAHYDRATE 1 G in DEXTROSE 5% WATER 50 ML IV SCH (07:11)
[2019-07-31] MEDS: ACETYLCYSTEINE 100MG/ML 10% VIAL 4ML INH SCH ×2 (07:32→14:00)
[2019-07-31] MEDS: ENOXAPARIN 40MG/0.4ML SYR SUBCUT SCH (08:13)
[2019-07-31] MEDS: AMLODIPINE 10MG TABLET PO SCH (08:13)
[2019-07-31] MEDS: FAMOTIDINE 20MG TABLET GT SCH ×2 (08:13→22:20)
[2019-07-31] MEDS: ASPIRIN 81MG EC TABLET PO SCH (08:13)
[2019-07-31 12:54] LABS: PLATELET ESTIMATE INCREASED
[2019-07-31] MEDS: CEFEPIME 1,000 MG in DEXTROSE 5% WATER 50 ML IV SCH (17:21)
[2019-07-31] MEDS: AMPICILLIN 2,000 MG in SODIUM CHLORIDE 0.9% 100 ML IV SCH (17:22)
[2019-07-31] MEDS: GENTAMICIN 80MG PREMIX 100 ML IV SCH (21:01)
[2019-08-01] VITALS (17 sets, daily range): BP systolic 94–108; BP diastolic 52–65
[2019-08-01] MEDS: IPRATROPIUM BROMIDE (0.02%) 0.5MG/2.5ML NEB HHN SCH ×7 (00:25→20:25)
[2019-08-01] MEDS: AMPICILLIN 2,000 MG in SODIUM CHLORIDE 0.9% 100 ML IV SCH ×5 (00:35→23:08)
[2019-08-01] MEDS: METOCLOPRAMIDE HCL 10MG/2ML VIAL IV SCH ×5 (00:35→23:07)
[2019-08-01] MEDS: CEFEPIME 1,000 MG in DEXTROSE 5% WATER 50 ML IV SCH ×2 (05:00→17:53)
[2019-08-01] MEDS: METOPROLOL TARTRATE 25MG TABLET PO SCH ×3 (06:00→22:00)
[2019-08-01] MEDS: METRONIDAZOLE 500 MG PREMIX 100 ML IV SCH ×2 (06:41→17:56)
[2019-08-01] MEDS: GENTAMICIN 80MG PREMIX 100 ML IV SCH ×2 (08:13→20:36)
[2019-08-01] MEDS: ASPIRIN 81MG EC TABLET PO SCH (08:14)
[2019-08-01] MEDS: ENOXAPARIN 40MG/0.4ML SYR SUBCUT SCH (08:14)
[2019-08-01] MEDS: FAMOTIDINE 20MG TABLET GT SCH ×2 (08:14→20:36)
[2019-08-01] MEDS: AMLODIPINE 10MG TABLET PO SCH (08:14)
[2019-08-01 09:12] LABS: BG BASE EXCESS 0.3 mmol/L (-2.0-2.0); BG CARBOXYHEMOGLOBIN 0.3 % (0.5-1.5); BG DEOXYHEMOGLOBIN 1.6 % (0.0-5.0); BG FRACTION INSPIRED OXYGEN 40; BG HCO3 ACT 24.4 mmol/L (22.0-26.0); BG METHEMOGLOBIN 0.3 % (0.0-1.5); BG OXYGEN SATURATION 98.4 % (92.0-98.5); BG OXYHEMOGLOBIN 97.8 % (94.0-97.0); BG PCO2 36.6 mmHg (35.0-45.0); BG PH 7.441 (7.350-7.450); BG PO2 126.9 mmHg (75.0-100.0); BG SAMPLE SITE RIGHT RADIAL; BG TIDAL VOLUME(mL) 500 mL; BG TOTAL HEMOGLOBIN 8.4 g/dL (12.0-18.0); BG VENT MODE VENT - A/C; BG VENT RATE 12 set
[2019-08-02] VITALS (12 sets, daily range): BP systolic 100–116; BP diastolic 55–71
[2019-08-02] MEDS: IPRATROPIUM BROMIDE (0.02%) 0.5MG/2.5ML NEB HHN SCH ×6 (00:01→20:40)
[2019-08-02] MEDS: ACETAMINOPHEN 650MG/20.3ML UDC PO PRN (01:53)
[2019-08-02] MEDS: CEFEPIME 1,000 MG in DEXTROSE 5% WATER 50 ML IV SCH ×2 (04:36→16:25)
[2019-08-02] MEDS: METRONIDAZOLE 500 MG PREMIX 100 ML IV SCH ×2 (05:22→18:02)
[2019-08-02] MEDS: METOCLOPRAMIDE HCL 10MG/2ML VIAL IV SCH ×4 (05:22→23:19)
[2019-08-02 05:53] LABS: CHLORIDE 105 mEq/L (98-107)
[2019-08-02 06:03] LABS: GENTAMICIN RANDOM 1.2 ug/mL
[2019-08-02] MEDS: AMPICILLIN 2,000 MG in SODIUM CHLORIDE 0.9% 100 ML IV SCH ×4 (06:03→23:19)
[2019-08-02] MEDS: METOPROLOL TARTRATE 25MG TABLET PO SCH ×3 (06:04→21:44)
[2019-08-02 06:15] LABS: HEMATOCRIT. 25.6 % (42.0-52.0); HEMOGLOBIN. 8.1 g/dL (14.0-18.0); MEAN CORPUSCULAR HEMOGLOBIN 24.7 pg (28.0-32.0); MEAN CORPUSCULAR VOLUME 77.9 fL (80.0-94.0); MEAN PLATELET VOLUME 8.2 fl (7.4-10.4); PLATELET 647 x1000/uL (130-400); RED BLOOD CELL COUNT 3.28 mill/uL (4.7-6.1); RED CELL DISTRIBUTION WIDTH 15.2 % (11.6-14.6)
[2019-08-02] MEDS: GENTAMICIN 80MG PREMIX 100 ML IV SCH ×2 (08:14→20:10)
[2019-08-02] MEDS: ASPIRIN 81MG EC TABLET PO SCH (08:14)
[2019-08-02] MEDS: FAMOTIDINE 20MG TABLET GT SCH ×2 (08:15→20:09)
[2019-08-02] MEDS: ENOXAPARIN 40MG/0.4ML SYR SUBCUT SCH (08:16)
[2019-08-02] MEDS: AMLODIPINE 10MG TABLET PO SCH (08:17)
[2019-08-02] MEDS: ACETYLCYSTEINE 100MG/ML 10% VIAL 4ML INH SCH (15:51)
[2019-08-02 19:10] LABS: PLATELET ESTIMATE INCREASED
[2019-08-03] VITALS (12 sets, daily range): BP systolic 97–117; BP diastolic 61–76
[2019-08-03] MEDS: ACETYLCYSTEINE 100MG/ML 10% VIAL 4ML INH SCH ×2 (00:38→11:46)
[2019-08-03] MEDS: IPRATROPIUM BROMIDE (0.02%) 0.5MG/2.5ML NEB HHN SCH ×6 (00:38→20:28)
[2019-08-03] MEDS: CEFEPIME 1,000 MG in DEXTROSE 5% WATER 50 ML IV SCH ×2 (04:21→16:23)
[2019-08-03] MEDS: METRONIDAZOLE 500 MG PREMIX 100 ML IV SCH ×2 (05:13→17:16)
[2019-08-03] MEDS: METOCLOPRAMIDE HCL 10MG/2ML VIAL IV SCH ×4 (05:13→23:43)
[2019-08-03] MEDS: METOPROLOL TARTRATE 25MG TABLET PO SCH ×3 (05:14→21:27)
[2019-08-03] MEDS: AMPICILLIN 2,000 MG in SODIUM CHLORIDE 0.9% 100 ML IV SCH ×4 (05:31→23:43)
[2019-08-03] MEDS: ASPIRIN 81MG EC TABLET PO SCH (08:32)
[2019-08-03] MEDS: FAMOTIDINE 20MG TABLET GT SCH ×2 (08:32→21:28)
[2019-08-03] MEDS: ENOXAPARIN 40MG/0.4ML SYR SUBCUT SCH (08:32)
[2019-08-03] MEDS: GENTAMICIN 80MG PREMIX 100 ML IV SCH (08:32)
[2019-08-03] MEDS: AMLODIPINE 10MG TABLET PO SCH (08:32)
[2019-08-03] MEDS ORDERED: GENTAMICIN 120MG PREMIX 100 ML IV NR (11:00)
[2019-08-03 16:20] LABS: HEMATOCRIT. 24.9 % (42.0-52.0); HEMOGLOBIN. 7.8 g/dL (14.0-18.0); MEAN CORPUSCULAR HEMOGLOBIN 24.7 pg (28.0-32.0); MEAN CORPUSCULAR VOLUME 78.7 fL (80.0-94.0); MEAN PLATELET VOLUME 8.2 fl (7.4-10.4); PLATELET 763 x1000/uL (130-400); RED BLOOD CELL COUNT 3.17 mill/uL (4.7-6.1); RED CELL DISTRIBUTION WIDTH 15.8 % (11.6-14.6)
[2019-08-03 16:30] LABS: CHLORIDE 104 mEq/L (98-107)
[2019-08-03 16:59] LABS: PLATELET ESTIMATE INCREASED
[2019-08-04] VITALS (12 sets, daily range): BP systolic 101–109; BP diastolic 20–74
[2019-08-04] MEDS: ACETYLCYSTEINE 100MG/ML 10% VIAL 4ML INH SCH ×4 (00:25→23:39)
[2019-08-04] MEDS: IPRATROPIUM BROMIDE (0.02%) 0.5MG/2.5ML NEB HHN SCH ×7 (00:25→23:39)
[2019-08-04] MEDS: CEFEPIME 1,000 MG in DEXTROSE 5% WATER 50 ML IV SCH ×2 (04:22→17:09)
[2019-08-04] MEDS: METOCLOPRAMIDE HCL 10MG/2ML VIAL IV SCH ×3 (05:20→18:14)
[2019-08-04] MEDS: AMPICILLIN 2,000 MG in SODIUM CHLORIDE 0.9% 100 ML IV SCH ×4 (05:21→23:51)
[2019-08-04] MEDS: METOPROLOL TARTRATE 25MG TABLET PO SCH ×3 (05:21→21:04)
[2019-08-04] MEDS: SODIUM CHLORIDE 0.9% IV SCH ×2 (06:29→23:51)
[2019-08-04] MEDS: GENTAMICIN SULFATE IV SCH ×2 (06:29→23:51)
[2019-08-04] MEDS: FAMOTIDINE 20MG TABLET GT SCH ×2 (08:42→20:55)
[2019-08-04] MEDS: ASPIRIN 81MG EC TABLET PO SCH (08:42)
[2019-08-04] MEDS: ENOXAPARIN 40MG/0.4ML SYR SUBCUT SCH (08:44)
[2019-08-04] MEDS: AMLODIPINE 10MG TABLET PO SCH (08:47)
[2019-08-05] VITALS (20 sets, daily range): BP systolic 101–115; BP diastolic 57–77
[2019-08-05] MEDS: IPRATROPIUM BROMIDE (0.02%) 0.5MG/2.5ML NEB HHN SCH ×5 (03:38→20:30)
[2019-08-05] MEDS: CEFEPIME 1,000 MG in DEXTROSE 5% WATER 50 ML IV SCH ×2 (04:44→17:09)
[2019-08-05] MEDS: AMPICILLIN 2,000 MG in SODIUM CHLORIDE 0.9% 100 ML IV SCH ×3 (05:55→17:09)
[2019-08-05] MEDS: METOCLOPRAMIDE HCL 10MG/2ML VIAL IV SCH ×4 (05:57→18:00)
[2019-08-05] MEDS: METOPROLOL TARTRATE 25MG TABLET PO SCH ×3 (06:00→21:09)
[2019-08-05 06:10] LABS: HEMATOCRIT. 22.9 % (42.0-52.0); HEMOGLOBIN. 7.4 g/dL (14.0-18.0); MEAN CORPUSCULAR HEMOGLOBIN 25.1 pg (28.0-32.0); MEAN CORPUSCULAR VOLUME 78.2 fL (80.0-94.0); MEAN PLATELET VOLUME 7.9 fl (7.4-10.4); PLATELET 866 x1000/uL (130-400); RED BLOOD CELL COUNT 2.93 mill/uL (4.7-6.1); RED CELL DISTRIBUTION WIDTH 15.7 % (11.6-14.6)
[2019-08-05] MEDS: ACETYLCYSTEINE 100MG/ML 10% VIAL 4ML INH SCH ×2 (07:39→15:35)
[2019-08-05 09:01] LABS: BG BASE EXCESS 2.3 mmol/L (-2.0-2.0); BG CARBOXYHEMOGLOBIN 0.1 % (0.5-1.5); BG DEOXYHEMOGLOBIN 2.1 % (0.0-5.0); BG FRACTION INSPIRED OXYGEN 30; BG HCO3 ACT 26.2 mmol/L (22.0-26.0); BG METHEMOGLOBIN 0.3 % (0.0-1.5); BG OXYGEN SATURATION 97.9 % (92.0-98.5); BG OXYHEMOGLOBIN 97.5 % (94.0-97.0); BG PCO2 37.6 mmHg (35.0-45.0); BG PH 7.461 (7.350-7.450); BG PO2 102.6 mmHg (75.0-100.0); BG SAMPLE SITE RIGHT RADIAL; BG TIDAL VOLUME(mL) 500 mL; BG TOTAL HEMOGLOBIN 8.4 g/dL (12.0-18.0); BG VENT MODE VENT - A/C; BG VENT RATE 12 set
[2019-08-05] MEDS: AMLODIPINE 10MG TABLET PO SCH (09:01)
[2019-08-05] MEDS: ENOXAPARIN 40MG/0.4ML SYR SUBCUT SCH (09:01)
[2019-08-05] MEDS: ASPIRIN 81MG EC TABLET PO SCH (09:01)
[2019-08-05] MEDS: FAMOTIDINE 20MG TABLET GT SCH ×2 (09:01→20:32)
[2019-08-05 13:18] LABS: PLATELET ESTIMATE MARKEDLY INCREASED
[2019-08-05] MEDS: SODIUM CHLORIDE 0.9% IV SCH (17:09)
[2019-08-05] MEDS: GENTAMICIN SULFATE IV SCH (17:09)
== END 2019-08-05 22:32 | DRG 870 ==
LOC: ER 04:46 → CVICU 05:42 → EDBEDREQ 05:44 → EDBEDREQTM 05:44 → CANRESERV 10:01 → ENRESERV 10:01 → EDBEDREQSVC 10:40 → ENRESERV 11:05 → 5EST 07-27 15:02
PROVIDERS: ADMIT Hospitalist; ATTEND Hospitalist
PROC: 02HV33Z Insertion of Infusion Device into Superior Vena Cava, Percutaneous Approach (ICD-10-PCS; 2019-07-24)
PROC: B548ZZA Ultrasonography of Superior Vena Cava, Guidance (ICD-10-PCS; 2019-07-24)
PROC: 5A1955Z Respiratory Ventilation, Greater than 96 Consecutive Hours (ICD-10-PCS; principal; 2019-07-25)
DX: A41.81 Sepsis due to Enterococcus (principal); I21.4 Non-ST elevation (NSTEMI) myocardial infarction; J15.6 Pneumonia due to other Gram-negative bacteria; I50.43 Acute on chronic combined systolic (congestive) and diastolic (congestive) heart failure; J96.22 Acute and chronic respiratory failure with hypercapnia; E46 Unspecified protein-calorie malnutrition; N39.0 Urinary tract infection, site not specified; I31.3 Pericardial effusion (noninflammatory); D68.9 Coagulation defect, unspecified; I48.92 Unspecified atrial flutter; J98.11 Atelectasis; K56.0 Paralytic ileus; Z99.11 Dependence on respirator [ventilator] status; I47.1 Supraventricular tachycardia; A41.59 Other Gram-negative sepsis; E87.6 Hypokalemia; G71.00 Muscular dystrophy, unspecified; I11.0 Hypertensive heart disease with heart failure; F41.9 Anxiety disorder, unspecified; Z79.899 Other long term (current) drug therapy; E86.9 Volume depletion, unspecified; D64.9 Anemia, unspecified; E03.9 Hypothyroidism, unspecified; E83.39 Other disorders of phosphorus metabolism; E83.42 Hypomagnesemia; I25.10 Atherosclerotic heart disease of native coronary artery without angina pectoris; I35.0 Nonrheumatic aortic (valve) stenosis; I48.91 Unspecified atrial fibrillation; Z95.1 Presence of aortocoronary bypass graft; Z93.0 Tracheostomy status; Z93.1 Gastrostomy status; Z68.25 Body mass index [BMI] 25.0-25.9, adult
CPT/HCPCS: 36415; 36600; 71045; 71270; 74018; 74178; 76937; 78580; 80048; 80061; 80170; 80202; 81003; 82375; 82550; 82553; 82805; 83036; 83605; 83735; 83880; 84100; 84145; 84439; 84443; 84484; 85379; 87070; 87077; 87186; 87804; 93005; 93306; 93970; 94002; 94003; 94640; 94667; 97161; 99291; C1725; J0282; J0290; J0692; J0713; J1160; J1580; J1650; J2060; J2270; J2405; J2543; J2765; J3370; J3475; J3480; J3490; J7030; J7050; J7060; J7608; J7620; Q9963; Q9967

== ENCOUNTER 2019-12-04 23:58 | Inpatient (IN) | payer MEDICARE, OTHER ==
[~2019-12-04] VITALS: Ht 177.8 cm; Wt 68.5 kg
[2019-12-05] MEDS ORDERED: VANCOMYCIN 1 G PREMIX 200 ML IV ONE (01:15)
[2019-12-05] MEDS ORDERED: PIPERACILLIN/TAZ 3.375G PREMIX 50 ML IV ONE (01:15)
[2019-12-05] MEDS ORDERED: SODIUM CHLORIDE 0.9% 1,000 ML IV ONE (01:15)
[2019-12-05 02:13] LABS: CHLORIDE 100 mEq/L (98-107)
[2019-12-05 02:53] LABS: EOSINOPHILS % 3.4 % (0.0-5.0); HEMATOCRIT. 38.3 % (42.0-52.0); HEMOGLOBIN. 12.2 g/dL (14.0-18.0); LYMPHOCYTES % 27.1 % (20.0-50.0); MEAN CORPUSCULAR HEMOGLOBIN 25.3 pg (28.0-32.0); MEAN CORPUSCULAR VOLUME 79.3 fL (80.0-94.0); MEAN PLATELET VOLUME 8.8 fl (7.4-10.4); MONOCYTES % 7.9 % (2.0-8.0); NEUTROPHILS % 60.7 % (40.0-76.0); PLATELET 448 x1000/uL (130-400); RED BLOOD CELL COUNT 4.83 mill/uL (4.7-6.1); RED CELL DISTRIBUTION WIDTH 13.7 % (11.6-14.6)
[2019-12-05 02:54] LABS: BASOPHILS % 0.9 % (0.0-2.0)
[2019-12-05 04:13] LABS: CLARITY URINE CLEAR (CLEAR); COLOR URINE YELLOW (YELLOW); KETONES URINE NEGATIVE (NEGATIVE); LEUKOCYTE ESTERASE URINE NEGATIVE (NEGATIVE); NITRITE URINE NEGATIVE (NEGATIVE); OCCULT BLOOD URINE NEGATIVE (NEGATIVE); PROTEIN URINE NEGATIVE (NEGATIVE); SPECIFIC GRAVITY URINE 1.005 (1.005-1.030); UROBILINOGEN URINE 0.2 E.U./dL (0.2-1.0)
[2019-12-05] MEDS ORDERED: CLONIDINE 0.1MG TABLET PO PRN (07:00)
[2019-12-05] MEDS ORDERED: GUAIFENESIN 200MG/10ML SUGAR FREE UDC PO PRN (07:00)
[2019-12-05] MEDS ORDERED: NA PHOS,M-B/NA PHOS,DI-BA ENEMA 118ML PR PRN (07:00)
[2019-12-05] MEDS ORDERED: ACETAMINOPHEN 325MG TABLET PO PRN (07:00)
[2019-12-05] MEDS ORDERED: MAGNESIUM/ALUMINUM HYDROXIDE/SIMETHICONE 30ML UDC PO PRN (07:00)
[2019-12-05] MEDS ORDERED: NITROGLYCERIN 0.4MG TABLET SL SL PRN (07:00)
[2019-12-05] MEDS ORDERED: DOCUSATE SODIUM 100MG CAPSULE PO PRN (07:00)
[2019-12-05] MEDS ORDERED: ENOXAPARIN 40MG/0.4ML SYR SUBCUT SCH (07:00)
[2019-12-05] MEDS ORDERED: ONDANSETRON HCL 4MG/2ML INJ IV PRN (07:00)
[2019-12-05] MEDS ORDERED: ASCORBIC ACID 500 MG TABLET PO NR (09:00)
[2019-12-05] MEDS ORDERED: ZINC SULFATE 220 MG ( 50 ) CAPSULE PO NR (09:00)
[2019-12-05] MEDS ORDERED: CEFEPIME 1,000 MG in DEXTROSE 5% WATER 50 ML IV SCH (09:00)
[2019-12-05] MEDS: PANTOPRAZOLE SODIUM 40 MG/VIAL IV SCH (09:26)
[2019-12-05] MEDS ORDERED: METRONIDAZOLE 500 MG PREMIX 100 ML IV SCH (15:55)
[2019-12-05 16:04] LABS: CREATINE KINASE 247 IU/L (39-308)
[2019-12-05 16:05] LABS: CREATINE KINASE MB FRACTION 4.3 ng/mL (0.5-3.6)
[2019-12-05] MEDS ORDERED: TRAMADOL 50MG TABLET PO PRN (17:57)
[2019-12-05 18:46] VITALS: BP 115/76
[2019-12-05] MEDS: CARVEDILOL 3.125 MG TABLET PO SCH (19:10)
[2019-12-05 20:00] VITALS: BP 114/80
[2019-12-05] MEDS ORDERED: VANCOMYCIN 2,000 MG in DEXT 5% WATER 500 ML IV NR (21:00)
[2019-12-05] MEDS ORDERED: ZOLPIDEM TARTRATE 5MG TABLET PO PRN (21:00)
[2019-12-05] MEDS: CEFEPIME 1,000 MG in DEXTROSE 5% WATER 50 ML IV SCH (21:15)
[2019-12-05] MEDS: ASCORBIC ACID 500 MG TABLET PO SCH (21:17)
[2019-12-05 23:28] LABS: CREATINE KINASE 402 IU/L (39-308)
[2019-12-05 23:29] LABS: CREATINE KINASE MB FRACTION 8.2 ng/mL (0.5-3.6)
[2019-12-05] MEDS: METRONIDAZOLE 500 MG PREMIX 100 ML IV SCH (23:37)
[2019-12-06] VITALS: BP 120/66
[2019-12-06 04:00] VITALS: BP 115/71
[2019-12-06] MEDS ORDERED: METO75TA GT (04:20)
[2019-12-06] MEDS ORDERED: FAMO20TA8 GT (04:20)
[2019-12-06] MEDS ORDERED: IPRA42SP INH (04:20)
[2019-12-06] MEDS ORDERED: ONDA4SOL GT (04:20)
[2019-12-06] MEDS ORDERED: FE300LUD GT (04:20)
[2019-12-06] MEDS ORDERED: ACET600C5 MT (04:20)
[2019-12-06] MEDS ORDERED: ACET650T37 GT (04:20)
[2019-12-06] MEDS ORDERED: HJ10 IJ (04:20)
[2019-12-06] MEDS ORDERED: IPRA3AMP9 HHN (04:20)
[2019-12-06] MEDS ORDERED: AMLO5TAB4 GT (04:20)
[2019-12-06] MEDS ORDERED: LACT1CAP68 GT (04:20)
[2019-12-06] MEDS ORDERED: CLON0.1T GT (04:20)
[2019-12-06] MEDS ORDERED: DEXTL GT (04:20)
[2019-12-06] MEDS ORDERED: ALUM1GRA GT (04:20)
[2019-12-06] MEDS ORDERED: DOCU-150 GT (04:20)
[2019-12-06] MEDS ORDERED: METO5TAB2 GT (04:20)
[2019-12-06] MEDS ORDERED: ASPI-1497 GT (04:20)
[2019-12-06] MEDS: IPRATROPIUM/ALBUTEROL 0.5-3(2.5)MG/3ML NEB NEB PRN (04:26)
[2019-12-06] MEDS ORDERED: VANCOMYCIN 1500MG in DEXTROSE 5% WATER 250ML IV SCH (05:00)
[2019-12-06] MEDS: CARVEDILOL 3.125 MG TABLET PO SCH ×2 (05:45→17:56)
[2019-12-06] MEDS: METRONIDAZOLE 500 MG PREMIX 100 ML IV SCH ×3 (05:45→21:52)
[2019-12-06] MEDS: ZINC SULFATE 220 MG ( 50 ) CAPSULE PO SCH (09:19)
[2019-12-06] MEDS: PANTOPRAZOLE SODIUM 40 MG/VIAL IV SCH (09:19)
[2019-12-06] MEDS: ASCORBIC ACID 500 MG TABLET PO SCH (09:19)
[2019-12-06] MEDS: CEFEPIME 1,000 MG in DEXTROSE 5% WATER 50 ML IV SCH ×2 (09:19→21:52)
[2019-12-06] MEDS: ENOXAPARIN 40MG/0.4ML SYR SUBCUT SCH (09:20)
[2019-12-06 11:10] VITALS: BP 110/76
[2019-12-06 16:00] VITALS: BP 111/79
[2019-12-06] MEDS: VANCOMYCIN 1500MG in DEXTROSE 5% WATER 250ML IV SCH (17:56)
[2019-12-06 20:00] VITALS: BP 113/78
[2019-12-06] MEDS: FAMOTIDINE 20MG/2ML VIAL IV SCH (21:52)
[2019-12-06] MEDS: ASCORBIC ACID 500 MG TABLET GT SCH (21:59)
[2019-12-07] VITALS (7 sets, daily range): BP systolic 103–136; BP diastolic 60–91
[2019-12-07] MEDS: IPRATROPIUM/ALBUTEROL 0.5-3(2.5)MG/3ML NEB NEB PRN (00:22)
[2019-12-07 04:56] LABS: BASOPHILS % 0.3 % (0.0-2.0); EOSINOPHILS % 1.4 % (0.0-5.0); HEMATOCRIT. 37.4 % (42.0-52.0); HEMOGLOBIN. 12.1 g/dL (14.0-18.0); LYMPHOCYTES % 12.1 % (20.0-50.0); MEAN CORPUSCULAR HEMOGLOBIN 25.6 pg (28.0-32.0); MEAN CORPUSCULAR VOLUME 78.9 fL (80.0-94.0); MEAN PLATELET VOLUME 8.1 fl (7.4-10.4); MONOCYTES % 6.4 % (2.0-8.0); NEUTROPHILS % 79.8 % (40.0-76.0); PLATELET 466 x1000/uL (130-400); RED BLOOD CELL COUNT 4.74 mill/uL (4.7-6.1); RED CELL DISTRIBUTION WIDTH 13.8 % (11.6-14.6)
[2019-12-07 05:20] LABS: CHLORIDE 103 mEq/L (98-107)
[2019-12-07 05:32] LABS: VANCOMYCIN TROUGH 19.3 ug/mL (5.0-10.0)
[2019-12-07] MEDS: VANCOMYCIN 1500MG in DEXTROSE 5% WATER 250ML IV SCH ×2 (06:00→18:02)
[2019-12-07] MEDS: METRONIDAZOLE 500 MG PREMIX 100 ML IV SCH ×3 (06:01→22:16)
[2019-12-07] MEDS: CARVEDILOL 3.125 MG TABLET PO SCH ×2 (06:01→18:02)
[2019-12-07] MEDS: ASCORBIC ACID 500 MG TABLET GT SCH ×2 (09:52→22:16)
[2019-12-07] MEDS: ZINC SULFATE 220 MG ( 50 ) CAPSULE PO SCH (09:52)
[2019-12-07] MEDS: CEFEPIME 1,000 MG in DEXTROSE 5% WATER 50 ML IV SCH ×2 (09:52→22:16)
[2019-12-07] MEDS: FAMOTIDINE 20MG/2ML VIAL IV SCH ×2 (09:52→22:16)
[2019-12-07] MEDS: ENOXAPARIN 40MG/0.4ML SYR SUBCUT SCH (09:53)
[2019-12-08] VITALS: BP 120/78
[2019-12-08] MEDS: IPRATROPIUM/ALBUTEROL 0.5-3(2.5)MG/3ML NEB NEB PRN ×2 (00:55→04:44)
[2019-12-08 04:00] VITALS: BP 114/87
[2019-12-08] MEDS: METRONIDAZOLE 500 MG PREMIX 100 ML IV SCH ×3 (05:35→21:25)
[2019-12-08] MEDS: VANCOMYCIN 1500MG in DEXTROSE 5% WATER 250ML IV SCH ×2 (05:35→18:19)
[2019-12-08] MEDS: CARVEDILOL 3.125 MG TABLET GT SCH ×2 (05:35→18:00)
[2019-12-08] MEDS: ACETAMINOPHEN 650MG/20.3ML UDC GT PRN ×2 (05:42→23:43)
[2019-12-08 08:00] VITALS: BP 116/65
[2019-12-08] MEDS: CEFEPIME 1,000 MG in DEXTROSE 5% WATER 50 ML IV SCH ×2 (09:27→20:16)
[2019-12-08] MEDS: ASCORBIC ACID 500 MG TABLET GT SCH ×2 (09:27→20:17)
[2019-12-08] MEDS: ENOXAPARIN 40MG/0.4ML SYR SUBCUT SCH (09:27)
[2019-12-08] MEDS: FAMOTIDINE 20MG/2ML VIAL IV SCH ×2 (09:27→20:16)
[2019-12-08] MEDS: ZINC SULFATE 220 MG ( 50 ) CAPSULE PO SCH (09:27)
[2019-12-08 12:00] VITALS: BP 112/73
[2019-12-08 16:00] VITALS: BP 100/59
[2019-12-08 20:00] VITALS: BP 107/71
[2019-12-08] MEDS: LORAZEPAM 0.5MG TABLET PO PRN (20:17)
[2019-12-09] VITALS: BP 106/70
[2019-12-09] MEDS: LORAZEPAM 0.5MG TABLET PO PRN (00:55)
[2019-12-09 04:00] VITALS: BP 107/67
[2019-12-09] MEDS: CARVEDILOL 3.125 MG TABLET GT SCH ×2 (05:10→18:00)
[2019-12-09] MEDS: VANCOMYCIN 1500MG in DEXTROSE 5% WATER 250ML IV SCH ×2 (05:10→19:04)
[2019-12-09] MEDS: METRONIDAZOLE 500 MG PREMIX 100 ML IV SCH ×3 (05:11→22:19)
[2019-12-09 08:00] VITALS: BP 107/67
[2019-12-09] MEDS: ZINC SULFATE 220 MG ( 50 ) CAPSULE PO SCH (09:57)
[2019-12-09] MEDS: ASCORBIC ACID 500 MG TABLET GT SCH ×2 (09:57→21:06)
[2019-12-09] MEDS: FAMOTIDINE 20MG/2ML VIAL IV SCH ×2 (09:57→21:06)
[2019-12-09] MEDS: ENOXAPARIN 40MG/0.4ML SYR SUBCUT SCH (09:58)
[2019-12-09] MEDS: CEFEPIME 1,000 MG in DEXTROSE 5% WATER 50 ML IV SCH ×2 (10:08→21:06)
[2019-12-09 12:00] VITALS: BP 107/63
[2019-12-09 16:00] VITALS: BP 102/61
[2019-12-09 20:00] VITALS: BP 122/82
[2019-12-10] VITALS: BP 116/80
[2019-12-10] MEDS: ACETAMINOPHEN 650MG/20.3ML UDC GT PRN (01:13)
[2019-12-10 04:00] VITALS: BP 110/69
[2019-12-10] MEDS: METRONIDAZOLE 500 MG PREMIX 100 ML IV SCH ×3 (05:36→21:32)
[2019-12-10] MEDS: CARVEDILOL 3.125 MG TABLET GT SCH ×2 (05:37→17:00)
[2019-12-10 05:49] LABS: CHLORIDE 101 mEq/L (98-107)
[2019-12-10 06:04] LABS: VANCOMYCIN TROUGH 19.1 ug/mL (5.0-10.0)
[2019-12-10 06:08] LABS: BASOPHILS % 0.4 % (0.0-2.0); EOSINOPHILS % 0.9 % (0.0-5.0); HEMATOCRIT. 35.8 % (42.0-52.0); HEMOGLOBIN. 11.8 g/dL (14.0-18.0); MEAN CORPUSCULAR HEMOGLOBIN 25.8 pg (28.0-32.0); MEAN CORPUSCULAR VOLUME 78.2 fL (80.0-94.0); MEAN PLATELET VOLUME 8.2 fl (7.4-10.4); MONOCYTES % 6.2 % (2.0-8.0); NEUTROPHILS % 78.5 % (40.0-76.0); PLATELET 499 x1000/uL (130-400); RED BLOOD CELL COUNT 4.58 mill/uL (4.7-6.1); RED CELL DISTRIBUTION WIDTH 13.8 % (11.6-14.6)
[2019-12-10] MEDS: VANCOMYCIN 1500MG in DEXTROSE 5% WATER 250ML IV SCH ×2 (06:36→17:08)
[2019-12-10 08:00] VITALS: BP 104/69
[2019-12-10] MEDS: ZINC SULFATE 220 MG ( 50 ) CAPSULE PO SCH (09:49)
[2019-12-10] MEDS: ENOXAPARIN 40MG/0.4ML SYR SUBCUT SCH (09:50)
[2019-12-10] MEDS: CEFEPIME 1,000 MG in DEXTROSE 5% WATER 50 ML IV SCH ×2 (09:50→21:33)
[2019-12-10] MEDS: FAMOTIDINE 20MG/2ML VIAL IV SCH ×2 (09:50→21:32)
[2019-12-10] MEDS: ASCORBIC ACID 500 MG TABLET GT SCH ×2 (09:50→21:32)
[2019-12-10 12:00] VITALS: BP 106/61
[2019-12-10] MEDS ORDERED: BARIUM SULFATE 176 GM SUSP.RECON ONE (13:34)
[2019-12-10 16:00] VITALS: BP 102/52
[2019-12-10 20:00] VITALS: BP 98/60
[2019-12-10] MEDS ORDERED: FLUCONAZOLE 200MG/100ML PREMIX IV ONE (21:45)
[2019-12-10] MEDS ORDERED: FLUCONAZOLE 200 MG/100ML BAG 100 ML IV NR (23:00)
[2019-12-11] VITALS (7 sets, daily range): BP systolic 106–136; BP diastolic 60–86
[2019-12-11] MEDS: VANCOMYCIN 1500MG in DEXTROSE 5% WATER 250ML IV SCH (05:35)
[2019-12-11] MEDS: METRONIDAZOLE 500 MG PREMIX 100 ML IV SCH ×2 (05:35→13:23)
[2019-12-11] MEDS: CARVEDILOL 3.125 MG TABLET GT SCH ×2 (05:36→17:56)
[2019-12-11] MEDS: ASCORBIC ACID 500 MG TABLET GT SCH (09:17)
[2019-12-11] MEDS: ZINC SULFATE 220 MG ( 50 ) CAPSULE PO SCH (09:17)
[2019-12-11] MEDS: CEFEPIME 1,000 MG in DEXTROSE 5% WATER 50 ML IV SCH (09:17)
[2019-12-11] MEDS: ENOXAPARIN 40MG/0.4ML SYR SUBCUT SCH (09:18)
[2019-12-11] MEDS: FAMOTIDINE 20MG/2ML VIAL IV SCH (09:20)
[2019-12-11] MEDS: IPRATROPIUM/ALBUTEROL 0.5-3(2.5)MG/3ML NEB NEB PRN (09:37)
[2019-12-11] MEDS ORDERED: FLUCONAZOLE 100MG TABLET PO SCH (21:00)
== END 2019-12-11 21:58 | DRG 720 ==
LOC: ER 23:58 → EDBEDREQ 12-05 04:17 → EDBEDREQTM 12-05 04:17 → EDBEDREQSVC 12-05 04:17 → SUPCPDRO 12-05 06:53 → ENRESERV 12-05 16:44 → 5WST 12-05 17:42
PROVIDERS: ADMIT Internal Medicine; ATTEND Internal Medicine
DX: A41.9 Sepsis, unspecified organism (principal); J96.00 Acute respiratory failure, unspecified whether with hypoxia or hypercapnia; E44.0 Moderate protein-calorie malnutrition; I11.0 Hypertensive heart disease with heart failure; J18.9 Pneumonia, unspecified organism; I42.9 Cardiomyopathy, unspecified; G71.00 Muscular dystrophy, unspecified; R13.10 Dysphagia, unspecified; I50.9 Heart failure, unspecified; B37.49 Other urogenital candidiasis; D63.8 Anemia in other chronic diseases classified elsewhere; R47.02 Dysphasia; Y95 Nosocomial condition; F41.9 Anxiety disorder, unspecified; K21.9 Gastro-esophageal reflux disease without esophagitis; Z79.899 Other long term (current) drug therapy; Z74.01 Bed confinement status; Z87.820 Personal history of traumatic brain injury; Z68.21 Body mass index [BMI] 21.0-21.9, adult; Z79.82 Long term (current) use of aspirin; Z93.1 Gastrostomy status
CPT/HCPCS: 36415; 71045; 74230; 80048; 80053; 80202; 81003; 82550; 82553; 83036; 83605; 83880; 84145; 84484; 85025; 92610; 92611; 93005; 93306; 93970; 94640; 94667; 97162; 99291; A6261; C9113; J0692; J1450; J1650; J2543; J3370; J3490; J7030; J7040; J7060

== ENCOUNTER 2020-11-09 09:36 | Inpatient (IN) | payer MEDICARE, MEDICAID ==
[~2020-11-09] VITALS: Ht 177.8 cm; Wt 78.0 kg
[2020-11-09] MEDS ORDERED: VANCOMYCIN 1 G PREMIX 200 ML IV ONE (10:30)
[2020-11-09] MEDS ORDERED: PIPERACILLIN/TAZ 3.375G PREMIX 50 ML IV ONE (10:30)
[2020-11-09 12:31] LABS: BASOPHILS % 0.3 % (0.0-2.0); EOSINOPHILS % 0.1 % (0.0-5.0); HEMATOCRIT. 44.4 % (42.0-52.0); HEMOGLOBIN. 14.6 g/dL (14.0-18.0); LYMPHOCYTES % 25.5 % (20.0-50.0); MEAN CORPUSCULAR HEMOGLOBIN 26.3 pg (28.0-32.0); MEAN CORPUSCULAR VOLUME 79.7 fL (80.0-94.0); MEAN PLATELET VOLUME 9.4 fl (7.4-10.4); MONOCYTES % 14.4 % (2.0-8.0); NEUTROPHILS % 59.7 % (40.0-76.0); PLATELET 169 x1000/uL (130-400); RED BLOOD CELL COUNT 5.57 mill/uL (4.7-6.1); RED CELL DISTRIBUTION WIDTH 13.6 % (11.6-14.6)
[2020-11-09 12:34] LABS: CHLORIDE 103 mEq/L (98-107)
[2020-11-09 12:38] LABS: INR 1.1; PARTIAL THROMBOPLASTIN TIME 37.9 sec (23.4-31.0); PROTHROMBIN TIME 11.6 sec (9.6-11.0)
[2020-11-09] MEDS ORDERED: ZOLPIDEM TARTRATE 5MG TABLET PO PRN (14:00)
[2020-11-09] MEDS ORDERED: ASPIRIN 325MG EC TABLET PO ONE (14:00)
[2020-11-09] MEDS ORDERED: ENOXAPARIN 80MG/0.8ML SYR SUBCUT ONE (14:00)
[2020-11-09] MEDS ORDERED: ACETAMINOPHEN 325MG TABLET PO PRN (14:00)
[2020-11-09] MEDS ORDERED: DOCUSATE SODIUM 100MG CAPSULE PO PRN (14:00)
[2020-11-09] MEDS ORDERED: DEXAMETHASONE 10 MG/ML VIAL IV ONE (14:00)
[2020-11-09] MEDS ORDERED: CLONIDINE 0.1MG TABLET PO PRN (14:00)
[2020-11-09] MEDS ORDERED: KETOROLAC 15MG/ML VIAL IV PRN (14:00)
[2020-11-09] MEDS ORDERED: TRAMADOL 50MG TABLET PO PRN (14:00)
[2020-11-09] MEDS ORDERED: MAGNESIUM/ALUMINUM HYDROXIDE/SIMETHICONE 30ML UDC PO PRN (14:00)
[2020-11-09] MEDS ORDERED: NITROGLYCERIN 0.4MG TABLET SL SL PRN (14:00)
[2020-11-09] MEDS ORDERED: ONDANSETRON HCL 4MG/2ML INJ IV PRN (14:00)
[2020-11-09 14:27] LABS: CLARITY URINE CLEAR (CLEAR); COLOR URINE YELLOW (YELLOW); KETONES URINE NEGATIVE (NEGATIVE); LEUKOCYTE ESTERASE URINE NEGATIVE (NEGATIVE); NITRITE URINE NEGATIVE (NEGATIVE); OCCULT BLOOD URINE NEGATIVE (NEGATIVE); PROTEIN URINE NEGATIVE (NEGATIVE); SPECIFIC GRAVITY URINE 1.011 (1.005-1.030)
[2020-11-09] MEDS ORDERED: ALBUTEROL 6.7GM HFA INHALER ORI PRN (16:00)
[2020-11-09] MEDS: CEFTRIAXONE 1 G PREMIX 50 ML IV SCH (16:40)
[2020-11-09] MEDS: GUAIFENESIN/DM 600MG/30MG ER TAB 12HR PO SCH (16:42)
[2020-11-09] MEDS: ENOXAPARIN 40MG/0.4ML SYR SUBCUT SCH (18:00)
[2020-11-09] MEDS: AZITHROMYCIN 500 MG in DEXT 5% WATER 250 ML IV SCH (20:10)
[2020-11-09] MEDS: ASCORBIC ACID 500 MG TABLET PO SCH (21:00)
[2020-11-09] MEDS: FAMOTIDINE 20MG TABLET PO SCH (21:00)
[2020-11-09] MEDS: ALBUTEROL 6.7GM HFA INHALER ORI SCH (21:00)
[2020-11-10] MEDS: ALBUTEROL 6.7GM HFA INHALER ORI SCH ×3 (02:08→20:41)
[2020-11-10] MEDS: ZINC SULFATE 220 MG ( 50 ) CAPSULE PO SCH (09:00)
[2020-11-10] MEDS: FAMOTIDINE 20MG TABLET PO SCH ×2 (09:00→20:46)
[2020-11-10] MEDS ORDERED: DEXAMETHASONE 10 MG/ML VIAL IV SCH (09:00)
[2020-11-10] MEDS: GUAIFENESIN/DM 600MG/30MG ER TAB 12HR PO SCH ×2 (09:00→20:47)
[2020-11-10] MEDS: ASCORBIC ACID 500 MG TABLET PO SCH ×2 (09:00→20:46)
[2020-11-10 09:37] LABS: BASOPHILS % 0.3 % (0.0-2.0); HEMATOCRIT. 45.5 % (42.0-52.0); HEMOGLOBIN. 15.2 g/dL (14.0-18.0); LYMPHOCYTES % 23.7 % (20.0-50.0); MEAN CORPUSCULAR HEMOGLOBIN 26.5 pg (28.0-32.0); MEAN CORPUSCULAR VOLUME 79.6 fL (80.0-94.0); MEAN PLATELET VOLUME 9.8 fl (7.4-10.4); MONOCYTES % 12.9 % (2.0-8.0); NEUTROPHILS % 63.1 % (40.0-76.0); PLATELET 179 x1000/uL (130-400); RED BLOOD CELL COUNT 5.72 mill/uL (4.7-6.1); RED CELL DISTRIBUTION WIDTH 13.5 % (11.6-14.6)
[2020-11-10 10:04] LABS: CHLORIDE 104 mEq/L (98-107)
[2020-11-10 10:10] LABS: PHOSPHORUS 3.3 mg/dL (2.5-4.9)
[2020-11-10] MEDS: CEFTRIAXONE 1 G PREMIX 50 ML IV SCH (16:50)
[2020-11-10] MEDS: ENOXAPARIN 40MG/0.4ML SYR SUBCUT SCH (18:08)
[2020-11-10] MEDS: AZITHROMYCIN 500 MG in DEXT 5% WATER 250 ML IV SCH (20:28)
[2020-11-11] MEDS: ALBUTEROL 6.7GM HFA INHALER ORI SCH ×4 (01:04→15:31)
[2020-11-11] MEDS ORDERED: DEXAMETHASONE 10 MG/ML VIAL IV SCH (09:30)
[2020-11-11] MEDS: ZINC SULFATE 220 MG ( 50 ) CAPSULE PO SCH (10:59)
[2020-11-11] MEDS: FAMOTIDINE 20MG TABLET PO SCH ×2 (10:59→21:30)
[2020-11-11] MEDS: ASCORBIC ACID 500 MG TABLET PO SCH ×2 (10:59→21:30)
[2020-11-11] MEDS: GUAIFENESIN/DM 600MG/30MG ER TAB 12HR PO SCH ×2 (10:59→21:30)
[2020-11-11] MEDS: ACETAMINOPHEN 325MG TABLET PO PRN (11:00)
[2020-11-11 12:58] VITALS: BP_SYST 102; BP_SYST 110; BP_DIAS 64
[2020-11-11 16:00] VITALS: BP 98/48
[2020-11-11] MEDS: CEFTRIAXONE 1,000 MG in DEXTROSE 5% WATER 50 ML IV SCH (16:00)
[2020-11-11] MEDS: ENOXAPARIN 40MG/0.4ML SYR SUBCUT SCH (18:04)
[2020-11-11] MEDS: AZITHROMYCIN 250 MG TABLET PO SCH (18:04)
[2020-11-11 20:00] VITALS: BP 114/70
[2020-11-12] VITALS: BP 106/75
[2020-11-12 04:00] VITALS: BP 100/47
[2020-11-12 08:00] VITALS: BP 111/69
[2020-11-12] MEDS: GUAIFENESIN/DM 600MG/30MG ER TAB 12HR PO SCH ×2 (09:19→21:31)
[2020-11-12] MEDS: DEXAMETHASONE 10 MG/ML VIAL IV SCH (09:19)
[2020-11-12] MEDS: ZINC SULFATE 220 MG ( 50 ) CAPSULE PO SCH (09:19)
[2020-11-12] MEDS: ASCORBIC ACID 500 MG TABLET PO SCH ×2 (09:20→21:31)
[2020-11-12] MEDS: FAMOTIDINE 20MG TABLET PO SCH ×2 (09:20→21:31)
[2020-11-12] MEDS: ALBUTEROL 6.7GM HFA INHALER ORI SCH ×4 (10:20→16:22)
[2020-11-12 12:00] VITALS: BP 112/54
[2020-11-12] MEDS: CEFTRIAXONE 1,000 MG in DEXTROSE 5% WATER 50 ML IV SCH (15:27)
[2020-11-12 15:59] VITALS: BP 110/46
[2020-11-12] MEDS: ENOXAPARIN 40MG/0.4ML SYR SUBCUT SCH (17:46)
[2020-11-12] MEDS: AZITHROMYCIN 250 MG TABLET PO SCH (17:47)
[2020-11-12 20:00] VITALS: BP 105/69
[2020-11-13 00:43] VITALS: BP 104/59
[2020-11-13] MEDS: ALBUTEROL 6.7GM HFA INHALER ORI SCH ×4 (02:12→21:23)
[2020-11-13 04:00] VITALS: BP 102/63
[2020-11-13 08:25] VITALS: BP 103/67
[2020-11-13] MEDS: FAMOTIDINE 20MG TABLET PO SCH ×2 (08:54→21:23)
[2020-11-13] MEDS: ZINC SULFATE 220 MG ( 50 ) CAPSULE PO SCH (08:54)
[2020-11-13] MEDS: GUAIFENESIN/DM 600MG/30MG ER TAB 12HR PO SCH ×2 (08:54→21:23)
[2020-11-13] MEDS: ASCORBIC ACID 500 MG TABLET PO SCH ×2 (08:54→21:23)
[2020-11-13] MEDS: DEXAMETHASONE 10 MG/ML VIAL IV SCH (08:54)
[2020-11-13 12:00] VITALS: BP 97/61
[2020-11-13] MEDS: CEFTRIAXONE 1,000 MG in DEXTROSE 5% WATER 50 ML IV SCH (15:55)
[2020-11-13 16:00] VITALS: BP 109/63
[2020-11-13] MEDS: ENOXAPARIN 40MG/0.4ML SYR SUBCUT SCH (17:34)
[2020-11-13] MEDS: AZITHROMYCIN 250 MG TABLET PO SCH (17:34)
[2020-11-13 20:00] VITALS: BP 111/58
[2020-11-14] VITALS: BP_SYST 114; BP_DIAS 59; BP_DIAS 69
[2020-11-14] MEDS: ALBUTEROL 6.7GM HFA INHALER ORI SCH ×3 (02:12→21:39)
[2020-11-14 04:00] VITALS: BP 105/58
[2020-11-14 08:00] VITALS: BP 103/62
[2020-11-14] MEDS: FAMOTIDINE 20MG TABLET PO SCH ×2 (08:30→21:39)
[2020-11-14] MEDS: ASCORBIC ACID 500 MG TABLET PO SCH ×2 (08:30→21:39)
[2020-11-14] MEDS: GUAIFENESIN/DM 600MG/30MG ER TAB 12HR PO SCH ×2 (08:30→21:39)
[2020-11-14] MEDS: DEXAMETHASONE 10 MG/ML VIAL IV SCH (08:30)
[2020-11-14] MEDS: ZINC SULFATE 220 MG ( 50 ) CAPSULE PO SCH (08:30)
[2020-11-14 12:00] VITALS: BP 109/66
[2020-11-14 16:00] VITALS: BP 104/56
[2020-11-14] MEDS: ENOXAPARIN 40MG/0.4ML SYR SUBCUT SCH (18:06)
[2020-11-14 20:00] VITALS: BP 100/59
[2020-11-15] VITALS: BP 102/64
[2020-11-15] MEDS: ALBUTEROL 6.7GM HFA INHALER ORI SCH ×4 (03:13→23:07)
[2020-11-15 04:00] VITALS: BP 100/56
[2020-11-15 08:00] VITALS: BP 98/57
[2020-11-15 12:00] VITALS: BP 99/61
[2020-11-15] MEDS: FAMOTIDINE 20MG TABLET PO SCH ×2 (12:40→20:57)
[2020-11-15] MEDS: ZINC SULFATE 220 MG ( 50 ) CAPSULE PO SCH (12:40)
[2020-11-15] MEDS: GUAIFENESIN/DM 600MG/30MG ER TAB 12HR PO SCH ×2 (12:40→20:57)
[2020-11-15] MEDS: ASCORBIC ACID 500 MG TABLET PO SCH ×2 (12:40→20:57)
[2020-11-15] MEDS: DEXAMETHASONE 10 MG/ML VIAL IV SCH (12:40)
[2020-11-15 16:00] VITALS: BP 99/63
[2020-11-15] MEDS: ENOXAPARIN 40MG/0.4ML SYR SUBCUT SCH (17:59)
[2020-11-15 20:00] VITALS: BP 101/65
[2020-11-16] VITALS: BP 105/56
[2020-11-16] MEDS: ALBUTEROL 6.7GM HFA INHALER ORI SCH ×4 (03:54→20:22)
[2020-11-16 04:00] VITALS: BP 108/69
[2020-11-16] MEDS: FAMOTIDINE 20MG TABLET PO SCH ×2 (09:00→20:22)
[2020-11-16] MEDS: GUAIFENESIN/DM 600MG/30MG ER TAB 12HR PO SCH ×2 (10:14→20:22)
[2020-11-16] MEDS: ZINC SULFATE 220 MG ( 50 ) CAPSULE PO SCH (10:15)
[2020-11-16] MEDS: ASCORBIC ACID 500 MG TABLET PO SCH ×2 (10:15→20:22)
[2020-11-16] MEDS: DEXAMETHASONE 10 MG/ML VIAL IV SCH (10:15)
[2020-11-16 12:00] VITALS: BP 110/65
[2020-11-16 14:00] VITALS: BP 98/55
[2020-11-16 16:00] VITALS: BP 98/55
[2020-11-16] MEDS: ENOXAPARIN 40MG/0.4ML SYR SUBCUT SCH (18:52)
[2020-11-16 20:37] VITALS: BP 101/56
[2020-11-17 00:19] VITALS: BP 96/54
[2020-11-17] MEDS: ALBUTEROL 6.7GM HFA INHALER ORI SCH ×4 (02:10→20:32)
[2020-11-17 04:00] VITALS: BP 96/54
[2020-11-17 08:00] VITALS: BP 107/62
[2020-11-17] MEDS: ZINC SULFATE 220 MG ( 50 ) CAPSULE PO SCH (09:05)
[2020-11-17] MEDS: FAMOTIDINE 20MG TABLET PO SCH ×2 (09:05→20:32)
[2020-11-17] MEDS: ASCORBIC ACID 500 MG TABLET PO SCH ×2 (09:06→20:32)
[2020-11-17] MEDS: DEXAMETHASONE 10 MG/ML VIAL IV SCH (09:06)
[2020-11-17] MEDS: GUAIFENESIN/DM 600MG/30MG ER TAB 12HR PO SCH ×2 (09:06→20:32)
[2020-11-17 12:00] VITALS: BP 110/61
[2020-11-17 16:00] VITALS: BP 108/60
[2020-11-17] MEDS: ENOXAPARIN 40MG/0.4ML SYR SUBCUT SCH (18:38)
[2020-11-17 20:00] VITALS: BP 102/65
[2020-11-18] VITALS: BP 101/62
[2020-11-18] MEDS: ALBUTEROL 6.7GM HFA INHALER ORI SCH ×3 (02:13→17:18)
[2020-11-18 04:00] VITALS: BP 105/60
[2020-11-18 08:00] VITALS: BP 116/61
[2020-11-18] MEDS: ASCORBIC ACID 500 MG TABLET PO SCH ×2 (09:25→20:35)
[2020-11-18] MEDS: ZINC SULFATE 220 MG ( 50 ) CAPSULE PO SCH (09:25)
[2020-11-18] MEDS: FAMOTIDINE 20MG TABLET PO SCH ×2 (09:25→20:35)
[2020-11-18] MEDS: GUAIFENESIN/DM 600MG/30MG ER TAB 12HR PO SCH ×2 (09:26→20:35)
[2020-11-18] MEDS: DEXAMETHASONE 10 MG/ML VIAL IV SCH (10:32)
[2020-11-18 12:00] VITALS: BP 120/74
[2020-11-18 16:00] VITALS: BP 101/67
[2020-11-18] MEDS: ENOXAPARIN 40MG/0.4ML SYR SUBCUT SCH (17:22)
[2020-11-18 19:00] VITALS: BP 119/69
[2020-11-19] VITALS (7 sets, daily range): BP systolic 103–120; BP diastolic 55–77
[2020-11-19 07:23] LABS: CHLORIDE 105 mEq/L (98-107)
[2020-11-19 07:29] LABS: HEMATOCRIT 44.3 % (42.0-52.0); HEMOGLOBIN 14.8 g/dL (14.0-18.0); MEAN CORPUSCULAR HEMOGLOBIN 26.5 pg (28.0-32.0); MEAN CORPUSCULAR VOLUME 79.5 fL (80.0-94.0); PLATELET 249 x1000/uL (130-400); RED BLOOD CELL COUNT 5.57 mill/uL (4.7-6.1); RED CELL DISTRIBUTION WIDTH 13.3 % (11.6-14.6)
[2020-11-19] MEDS: ASCORBIC ACID 500 MG TABLET PO SCH ×2 (09:33→21:14)
[2020-11-19] MEDS: GUAIFENESIN/DM 600MG/30MG ER TAB 12HR PO SCH ×2 (09:34→21:14)
[2020-11-19] MEDS: DEXAMETHASONE 10 MG/ML VIAL IV SCH (09:34)
[2020-11-19] MEDS: ZINC SULFATE 220 MG ( 50 ) CAPSULE PO SCH (09:34)
[2020-11-19] MEDS: FAMOTIDINE 20MG TABLET PO SCH ×2 (09:34→21:14)
[2020-11-19] MEDS: ALBUTEROL 6.7GM HFA INHALER ORI SCH ×3 (09:35→15:49)
[2020-11-19] MEDS: ENOXAPARIN 40MG/0.4ML SYR SUBCUT SCH (18:30)
[2020-11-20 00:23] VITALS: BP 124/72
[2020-11-20 04:00] VITALS: BP 106/70
[2020-11-20 08:00] VITALS: BP 129/90
[2020-11-20] MEDS: FAMOTIDINE 20MG TABLET PO SCH ×2 (10:05→21:25)
[2020-11-20] MEDS: ASCORBIC ACID 500 MG TABLET PO SCH ×2 (10:05→21:24)
[2020-11-20] MEDS: DEXAMETHASONE 10 MG/ML VIAL IV SCH (10:05)
[2020-11-20] MEDS: ZINC SULFATE 220 MG ( 50 ) CAPSULE PO SCH (10:05)
[2020-11-20] MEDS: GUAIFENESIN/DM 600MG/30MG ER TAB 12HR PO SCH ×2 (10:05→21:25)
[2020-11-20] MEDS: ALBUTEROL 6.7GM HFA INHALER ORI SCH ×3 (10:06→21:25)
[2020-11-20 12:00] VITALS: BP 114/72
[2020-11-20 16:00] VITALS: BP 112/73
[2020-11-20 20:00] VITALS: BP 113/66
[2020-11-21 00:38] VITALS: BP 120/70
[2020-11-21] MEDS: ALBUTEROL 6.7GM HFA INHALER ORI SCH ×4 (04:02→22:39)
[2020-11-21 08:00] VITALS: BP 112/78
[2020-11-21] MEDS: ZINC SULFATE 220 MG ( 50 ) CAPSULE PO SCH (08:13)
[2020-11-21] MEDS: GUAIFENESIN/DM 600MG/30MG ER TAB 12HR PO SCH ×2 (08:13→22:39)
[2020-11-21] MEDS: ASCORBIC ACID 500 MG TABLET PO SCH ×2 (08:13→22:39)
[2020-11-21] MEDS: FAMOTIDINE 20MG TABLET PO SCH ×2 (08:13→22:39)
[2020-11-21 12:00] VITALS: BP 104/70
[2020-11-21 16:00] VITALS: BP 98/77
[2020-11-22] VITALS: BP 110/71
[2020-11-22] MEDS: ALBUTEROL 6.7GM HFA INHALER ORI SCH ×4 (03:00→21:15)
[2020-11-22 04:30] VITALS: BP 110/60
[2020-11-22 08:00] VITALS: BP 102/72
[2020-11-22] MEDS: GUAIFENESIN/DM 600MG/30MG ER TAB 12HR PO SCH ×2 (09:30→21:00)
[2020-11-22] MEDS: ASCORBIC ACID 500 MG TABLET PO SCH ×2 (09:30→21:13)
[2020-11-22] MEDS: ZINC SULFATE 220 MG ( 50 ) CAPSULE PO SCH (09:30)
[2020-11-22] MEDS: FAMOTIDINE 20MG TABLET PO SCH ×2 (09:31→21:13)
[2020-11-22 12:00] VITALS: BP 108/78
[2020-11-22 16:00] VITALS: BP 87/49
[2020-11-22 20:35] VITALS: BP 121/82
[2020-11-23 00:23] VITALS: BP 115/73
[2020-11-23] MEDS: ALBUTEROL 6.7GM HFA INHALER ORI SCH ×4 (03:14→21:41)
[2020-11-23 04:00] VITALS: BP 109/73
[2020-11-23 08:00] VITALS: BP 110/73
[2020-11-23] MEDS: GUAIFENESIN/DM 600MG/30MG ER TAB 12HR PO SCH ×2 (09:00→21:00)
[2020-11-23] MEDS: ASCORBIC ACID 500 MG TABLET PO SCH ×2 (10:00→21:41)
[2020-11-23] MEDS: ZINC SULFATE 220 MG ( 50 ) CAPSULE PO SCH (10:00)
[2020-11-23] MEDS: FAMOTIDINE 20MG TABLET PO SCH ×2 (10:00→21:41)
[2020-11-23 12:00] VITALS: BP 107/72
[2020-11-23 20:00] VITALS: BP 118/74
[2020-11-24] VITALS: BP 118/74
[2020-11-24] MEDS: ALBUTEROL 6.7GM HFA INHALER ORI SCH ×4 (02:29→22:01)
[2020-11-24 04:00] VITALS: BP 108/62
[2020-11-24 08:38] VITALS: BP 108/74
[2020-11-24] MEDS: GUAIFENESIN/DM 600MG/30MG ER TAB 12HR PO SCH ×2 (10:02→22:01)
[2020-11-24] MEDS: ASCORBIC ACID 500 MG TABLET PO SCH ×2 (10:02→22:01)
[2020-11-24] MEDS: ZINC SULFATE 220 MG ( 50 ) CAPSULE PO SCH (10:05)
[2020-11-24] MEDS: FAMOTIDINE 20MG TABLET PO SCH ×2 (12:02→22:01)
[2020-11-24 12:10] VITALS: BP 102/67
[2020-11-24 16:51] VITALS: BP 113/71
[2020-11-24 20:00] VITALS: BP 114/70
[2020-11-25] VITALS (8 sets, daily range): BP systolic 103–131; BP diastolic 59–84
[2020-11-25] MEDS: ALBUTEROL 6.7GM HFA INHALER ORI SCH ×4 (03:25→22:18)
[2020-11-25] MEDS: GUAIFENESIN/DM 600MG/30MG ER TAB 12HR PO SCH ×2 (09:23→21:00)
[2020-11-25] MEDS: ZINC SULFATE 220 MG ( 50 ) CAPSULE PO SCH (09:23)
[2020-11-25] MEDS: FAMOTIDINE 20MG TABLET PO SCH ×2 (09:23→22:17)
[2020-11-25] MEDS: ASCORBIC ACID 500 MG TABLET PO SCH ×2 (09:23→22:18)
[2020-11-26] VITALS: BP 118/75
[2020-11-26] MEDS: ACETAMINOPHEN 325MG TABLET PO PRN (03:37)
[2020-11-26] MEDS: ALBUTEROL 6.7GM HFA INHALER ORI SCH ×4 (03:38→22:27)
[2020-11-26 04:00] VITALS: BP 116/76
[2020-11-26 08:00] VITALS: BP 121/81
[2020-11-26] MEDS: GUAIFENESIN/DM 600MG/30MG ER TAB 12HR PO SCH ×2 (09:00→21:00)
[2020-11-26] MEDS: ZINC SULFATE 220 MG ( 50 ) CAPSULE PO SCH (09:41)
[2020-11-26] MEDS: FAMOTIDINE 20MG TABLET PO SCH ×2 (09:41→22:26)
[2020-11-26] MEDS: ASCORBIC ACID 500 MG TABLET PO SCH ×2 (09:41→22:26)
[2020-11-26 12:00] VITALS: BP 122/82
[2020-11-26 16:00] VITALS: BP 133/76
[2020-11-26 20:00] VITALS: BP 118/64
[2020-11-26] MEDS: GUAIFENESIN 200MG/10ML SUGAR FREE UDC PO PRN (22:26)
[2020-11-27] VITALS: BP 117/83
[2020-11-27 04:00] VITALS: BP 122/71
[2020-11-27] MEDS: ALBUTEROL 6.7GM HFA INHALER ORI SCH ×4 (05:43→22:02)
[2020-11-27 08:00] VITALS: BP 122/84
[2020-11-27] MEDS: FAMOTIDINE 20MG TABLET PO SCH ×2 (08:37→22:01)
[2020-11-27] MEDS: ZINC SULFATE 220 MG ( 50 ) CAPSULE PO SCH (08:37)
[2020-11-27] MEDS: GUAIFENESIN/DM 600MG/30MG ER TAB 12HR PO SCH ×2 (08:37→21:00)
[2020-11-27] MEDS: ASCORBIC ACID 500 MG TABLET PO SCH ×2 (08:37→22:01)
[2020-11-27 12:00] VITALS: BP 107/76
[2020-11-27 16:00] VITALS: BP 118/71
[2020-11-27 20:42] VITALS: BP 119/65
[2020-11-27] MEDS: GUAIFENESIN 200MG/10ML SUGAR FREE UDC PO PRN (22:01)
[2020-11-28] MEDS: ACETAMINOPHEN 325MG TABLET PO PRN (00:27)
[2020-11-28 04:00] VITALS: BP 124/84
[2020-11-28] MEDS: ALBUTEROL 6.7GM HFA INHALER ORI SCH ×4 (05:55→20:50)
[2020-11-28 08:12] VITALS: BP 119/69
[2020-11-28] MEDS: ZINC SULFATE 220 MG ( 50 ) CAPSULE PO SCH (08:54)
[2020-11-28] MEDS: FAMOTIDINE 20MG TABLET PO SCH ×2 (08:54→20:50)
[2020-11-28] MEDS: GUAIFENESIN/DM 600MG/30MG ER TAB 12HR PO SCH ×2 (08:54→20:50)
[2020-11-28] MEDS: ASCORBIC ACID 500 MG TABLET PO SCH ×2 (08:54→20:50)
[2020-11-28] MEDS: GUAIFENESIN 200MG/10ML SUGAR FREE UDC PO PRN (08:54)
[2020-11-28 12:00] VITALS: BP 126/84
[2020-11-28 16:09] VITALS: BP 114/81
[2020-11-28 20:00] VITALS: BP 116/77
[2020-11-29] VITALS: BP 118/79
[2020-11-29] MEDS: ALBUTEROL 6.7GM HFA INHALER ORI SCH ×4 (03:55→21:18)
[2020-11-29 04:00] VITALS: BP 107/76
[2020-11-29 08:00] VITALS: BP 127/79
[2020-11-29] MEDS: FAMOTIDINE 20MG TABLET PO SCH ×2 (10:10→21:16)
[2020-11-29] MEDS: ASCORBIC ACID 500 MG TABLET PO SCH ×2 (10:10→21:16)
[2020-11-29] MEDS: ZINC SULFATE 220 MG ( 50 ) CAPSULE PO SCH (10:10)
[2020-11-29] MEDS: GUAIFENESIN/DM 600MG/30MG ER TAB 12HR PO SCH ×2 (10:10→21:16)
[2020-11-29 16:41] LABS: BASOPHILS % 0.5 % (0.0-2.0); EOSINOPHILS % 0.9 % (0.0-5.0); HEMATOCRIT. 45.3 % (42.0-52.0); HEMOGLOBIN. 14.7 g/dL (14.0-18.0); LYMPHOCYTES % 31.7 % (20.0-50.0); MEAN CORPUSCULAR HEMOGLOBIN 26.1 pg (28.0-32.0); MEAN CORPUSCULAR VOLUME 80.2 fL (80.0-94.0); MEAN PLATELET VOLUME 9.1 fl (7.4-10.4); MONOCYTES % 10.4 % (2.0-8.0); NEUTROPHILS % 56.5 % (40.0-76.0); PLATELET 281 x1000/uL (130-400); RED BLOOD CELL COUNT 5.64 mill/uL (4.7-6.1); RED CELL DISTRIBUTION WIDTH 13.7 % (11.6-14.6)
[2020-11-29 20:00] VITALS: BP 124/80
[2020-11-30] MEDS: ALBUTEROL 6.7GM HFA INHALER ORI SCH ×3 (03:00→15:56)
[2020-11-30 08:00] VITALS: BP 125/84
[2020-11-30] MEDS: GUAIFENESIN/DM 600MG/30MG ER TAB 12HR PO SCH ×2 (10:35→21:24)
[2020-11-30] MEDS: FAMOTIDINE 20MG TABLET PO SCH ×2 (10:36→21:24)
[2020-11-30] MEDS: ASCORBIC ACID 500 MG TABLET PO SCH ×2 (10:36→21:24)
[2020-11-30] MEDS: ZINC SULFATE 220 MG ( 50 ) CAPSULE PO SCH (10:36)
[2020-11-30 20:00] VITALS: BP 111/76
[2020-12-01 08:00] VITALS: BP_SYST 106; BP_SYST 112; BP_DIAS 57; BP_DIAS 81
[2020-12-01] MEDS: FAMOTIDINE 20MG TABLET PO SCH (08:29)
[2020-12-01] MEDS: GUAIFENESIN/DM 600MG/30MG ER TAB 12HR PO SCH (08:29)
[2020-12-01] MEDS: ZINC SULFATE 220 MG ( 50 ) CAPSULE PO SCH (08:29)
[2020-12-01] MEDS: ASCORBIC ACID 500 MG TABLET PO SCH (08:30)
[2020-12-01] MEDS: ALBUTEROL 6.7GM HFA INHALER ORI SCH ×2 (09:00→15:00)
[2020-12-01 12:00] VITALS: BP_SYST 113; BP_SYST 144; BP_DIAS 75; BP_DIAS 78
== END 2020-12-01 18:05 | DRG 871 ==
LOC: ER 09:36 → MICUSO 13:50 → EDBEDREQ 14:04 → 7EST 11-11 10:02 → 6WST 11-25 16:33
PROVIDERS: ADMIT Internal Medicine; ATTEND Internal Medicine
DX: A41.89 Other specified sepsis (principal); U07.1 COVID-19; J96.01 Acute respiratory failure with hypoxia; J12.82 Pneumonia due to coronavirus disease 2019; I47.1 Supraventricular tachycardia; G71.00 Muscular dystrophy, unspecified; B97.89 Other viral agents as the cause of diseases classified elsewhere; I11.0 Hypertensive heart disease with heart failure; I50.9 Heart failure, unspecified; F41.9 Anxiety disorder, unspecified; R74.01 Elevation of levels of liver transaminase levels; R77.8 Other specified abnormalities of plasma proteins; K21.9 Gastro-esophageal reflux disease without esophagitis; Z79.01 Long term (current) use of anticoagulants; Z87.440 Personal history of urinary (tract) infections; Z78.9 Other specified health status; Z93.1 Gastrostomy status; Z86.718 Personal history of other venous thrombosis and embolism; Z87.01 Personal history of pneumonia (recurrent); Z99.81 Dependence on supplemental oxygen; Z93.0 Tracheostomy status; Z79.899 Other long term (current) drug therapy
CPT/HCPCS: 36415; 71045; 80048; 80053; 81003; 82728; 83036; 83605; 83735; 83880; 84100; 84145; 84484; 85025; 85027; 85379; 86140; 87426; 87635; 93005; 93970; 94640; 99285; J0456; J0696; J1100; J1650; J2543; J3370; J7040; J7060; U0003

== ENCOUNTER 2021-10-11 19:00 | Inpatient (IN) | payer MEDICARE, MEDICAID ==
[~2021-10-11] VITALS: Ht 172.7 cm; Wt 94.8 kg
[2021-10-11 20:15] LABS: BASOPHILS % 0.4 % (0.0-2.0); EOSINOPHILS % 0.6 % (0.0-5.0); HEMATOCRIT. 42.8 % (42.0-52.0); HEMOGLOBIN. 13.9 g/dL (14.0-18.0); LYMPHOCYTES % 18.5 % (20.0-50.0); MEAN CORPUSCULAR HEMOGLOBIN 26.2 pg (28.0-32.0); MEAN CORPUSCULAR VOLUME 80.7 fL (80.0-94.0); MEAN PLATELET VOLUME 9.7 fl (7.4-10.4); MONOCYTES % 8.7 % (2.0-8.0); NEUTROPHILS % 71.8 % (40.0-76.0); PLATELET 309 x1000/uL (130-400); RED CELL DISTRIBUTION WIDTH 12.6 % (11.6-14.6)
[2021-10-11 20:23] LABS: CHLORIDE 99 mEq/L (98-107)
[2021-10-11 20:32] LABS: BG BASE EXCESS 4.6 mmol/L (-2.0-2.0); BG CARBOXYHEMOGLOBIN 0.4 % (0.5-1.5); BG DEOXYHEMOGLOBIN 2.4 % (0.0-5.0); BG FRACTION INSPIRED OXYGEN 80; BG HCO3 ACT 30.5 mmol/L (22.0-26.0); BG METHEMOGLOBIN 0.3 % (0.0-1.5); BG OXYGEN SATURATION 97.6 % (92.0-98.5); BG OXYHEMOGLOBIN 96.9 % (94.0-97.0); BG PH 7.403 (7.350-7.450); BG TOTAL HEMOGLOBIN 14.3 g/dL (12.0-18.0); BG VENT MODE COOL AEROSOL
[2021-10-11 20:42] LABS: CLARITY URINE CLEAR (CLEAR); COLOR URINE DARK YELLOW (YELLOW); KETONES URINE 1+ (NEGATIVE); LEUKOCYTE ESTERASE URINE NEGATIVE (NEGATIVE); NITRITE URINE NEGATIVE (NEGATIVE); OCCULT BLOOD URINE NEGATIVE (NEGATIVE); PH URINE 6.5 (4.5-8.0); PROTEIN URINE 2+ (NEGATIVE); SPECIFIC GRAVITY URINE 1.033 (1.005-1.030)
[2021-10-11] MEDS ORDERED: IPRATROPIUM/ALBUTEROL 0.5-3(2.5)MG/3ML NEB NEB PRN (23:00)
[2021-10-11] MEDS ORDERED: NITROGLYCERIN 0.4MG TABLET SL SL PRN (23:00)
[2021-10-11] MEDS ORDERED: MAGNESIUM/ALUMINUM HYDROXIDE/SIMETHICONE 30ML UDC PO PRN (23:00)
[2021-10-11] MEDS ORDERED: CLONIDINE 0.1MG TABLET PO PRN (23:00)
[2021-10-11] MEDS ORDERED: ACETAMINOPHEN 325MG TABLET PO PRN (23:00)
[2021-10-11] MEDS ORDERED: ONDANSETRON HCL 4MG/2ML INJ IV PRN (23:00)
[2021-10-11] MEDS ORDERED: DOCUSATE SODIUM 100MG CAPSULE PO PRN (23:00)
[2021-10-11] MEDS ORDERED: GUAIFENESIN 200MG/10ML SUGAR FREE UDC PO PRN (23:00)
[2021-10-11] MEDS ORDERED: IOHEXOL-350 100 ML BOTTLE ONE (23:12)
[2021-10-11] MEDS ORDERED: SODIUM CHLORIDE 0.9% 1,000 ML IV ONE (23:30)
[2021-10-11 23:44] LABS: FOLIC ACID (FOLATE) SERUM >20 ng/mL ng/mL (>5.38)
[2021-10-11] MEDS: PIPERACILLIN/TAZ 3.375G PREMIX 50 ML IV SCH (23:45)
[2021-10-11 23:55] LABS: VITAMIN B12 SERUM >2000 pg/mL pg/mL (211-911)
[2021-10-12] VITALS (7 sets, daily range): BP systolic 136–152; BP diastolic 58–96
[2021-10-12] MEDS ORDERED: VANCOMYCIN 1250MG in DEXTROSE 5% WATER 250ML IV NR
[2021-10-12] MEDS: DILTIAZEM HCL 60MG TABLET PO SCH ×4 (00:13→14:02)
[2021-10-12] MEDS: PIPERACILLIN/TAZ 3.375G PREMIX 50 ML IV SCH (06:57)
[2021-10-12] MEDS: METHYLPREDNISOLONE SOD SUCC 125 MG/2 ML VIAL IV SCH ×3 (06:57→21:37)
[2021-10-12] MEDS ORDERED: NALOXONE HCL 0.4MG/ML VIAL IV PRN (09:45)
[2021-10-12] MEDS: ENOXAPARIN 40MG/0.4ML SYR SUBCUT SCH (09:55)
[2021-10-12] MEDS: FAMOTIDINE 20MG TABLET PO SCH ×2 (09:56→21:36)
[2021-10-12] MEDS: VANCOMYCIN 1250MG in DEXTROSE 5% WATER 250ML IV SCH ×3 (09:56→23:51)
[2021-10-12] MEDS: TRAMADOL 50MG TABLET PO PRN (11:15)
[2021-10-12] MEDS ORDERED: IPRATROPIUM/ALBUTEROL 0.5-3(2.5)MG/3ML NEB HHN PRN (11:15)
[2021-10-12 11:54] LABS: BG BASE EXCESS 5.6 mmol/L (-2.0-2.0); BG CARBOXYHEMOGLOBIN 0.2 % (0.5-1.5); BG DEOXYHEMOGLOBIN 1.3 % (0.0-5.0); BG FRACTION INSPIRED OXYGEN 80; BG METHEMOGLOBIN 0.5 % (0.0-1.5); BG OXYGEN SATURATION 98.7 % (92.0-98.5); BG PCO2 59.4 mmHg (35.0-45.0); BG PH 7.362 (7.350-7.450); BG SAMPLE SITE RIGHT RADIAL; BG TOTAL HEMOGLOBIN 14.6 g/dL (12.0-18.0); BG VENT MODE T PIECE
[2021-10-12] MEDS: IPRATROPIUM/ALBUTEROL 0.5-3(2.5)MG/3ML NEB HHN SCH ×4 (12:00→20:00)
[2021-10-12] MEDS ORDERED: CARV3.1242 PO (12:27)
[2021-10-12] MEDS ORDERED: SENN-257 MT (12:27)
[2021-10-12] MEDS ORDERED: LACT10SO7 MT (12:27)
[2021-10-12] MEDS ORDERED: FAMO20TA8 PO (12:27)
[2021-10-12] MEDS ORDERED: MULT-230 MT (12:27)
[2021-10-12] MEDS ORDERED: DOCU250C14 GT (12:27)
[2021-10-12] MEDS ORDERED: DOCU50LI25 PO (12:27)
[2021-10-12 12:30] LABS: HEMATOCRIT. 41.3 % (42.0-52.0); HEMOGLOBIN. 13.3 g/dL (14.0-18.0); MEAN CORPUSCULAR HEMOGLOBIN 26.2 pg (28.0-32.0); MEAN CORPUSCULAR VOLUME 81.2 fL (80.0-94.0); MEAN PLATELET VOLUME 9.8 fl (7.4-10.4); PLATELET 299 x1000/uL (130-400); RED BLOOD CELL COUNT 5.09 mill/uL (4.7-6.1); RED CELL DISTRIBUTION WIDTH 12.9 % (11.6-14.6)
[2021-10-12 12:39] LABS: CHLORIDE 101 mEq/L (98-107)
[2021-10-12] MEDS: ACETYLCYSTEINE 100MG/ML 10% VIAL 4ML INH SCH ×2 (12:45→21:36)
[2021-10-12 12:50] LABS: CREATINE KINASE 907 IU/L (39-308)
[2021-10-12] MEDS ORDERED: IPRATROPIUM BROMIDE (0.02%) 0.5MG/2.5ML NEB ONE (13:01)
[2021-10-12] MEDS: PIPERACILLIN/TAZOBACTAM 3.375G in DEXT 5% WATER 50ML IV SCH ×2 (13:59→21:59)
[2021-10-12 16:49] LABS: CREATINE KINASE 776 IU/L (39-308)
[2021-10-12 16:58] LABS: PLATELET ESTIMATE NORMAL
[2021-10-12] MEDS: DILTIAZEM HCL 90MG TABLET PO SCH ×2 (17:29→23:53)
[2021-10-13] VITALS (12 sets, daily range): BP systolic 111–139; BP diastolic 56–87
[2021-10-13] MEDS: ACETAMINOPHEN 325MG TABLET PO PRN (00:10)
[2021-10-13] MEDS: ZOLPIDEM TARTRATE 5MG TABLET PO PRN ×2 (00:10→22:14)
[2021-10-13] MEDS: IPRATROPIUM/ALBUTEROL 0.5-3(2.5)MG/3ML NEB HHN SCH ×6 (04:00→21:51)
[2021-10-13] MEDS: ACETYLCYSTEINE 100MG/ML 10% VIAL 4ML INH SCH ×3 (05:18→15:35)
[2021-10-13] MEDS: METHYLPREDNISOLONE SOD SUCC 125 MG/2 ML VIAL IV SCH ×3 (05:18→22:14)
[2021-10-13] MEDS: DILTIAZEM HCL 90MG TABLET PO SCH ×3 (05:23→17:25)
[2021-10-13] MEDS: PIPERACILLIN/TAZOBACTAM 3.375G in DEXT 5% WATER 50ML IV SCH ×3 (05:28→22:14)
[2021-10-13 05:50] LABS: CHLORIDE 101 mEq/L (98-107)
[2021-10-13] MEDS: ENOXAPARIN 40MG/0.4ML SYR SUBCUT SCH (09:15)
[2021-10-13] MEDS: FAMOTIDINE 20MG TABLET PO SCH ×2 (09:16→22:14)
[2021-10-14] VITALS (12 sets, daily range): BP systolic 139–161; BP diastolic 72–97
[2021-10-14] MEDS: DILTIAZEM HCL 90MG TABLET PO SCH ×4 (00:28→18:48)
[2021-10-14] MEDS: ACETYLCYSTEINE 100MG/ML 10% VIAL 4ML INH SCH ×3 (02:12→16:04)
[2021-10-14] MEDS: IPRATROPIUM/ALBUTEROL 0.5-3(2.5)MG/3ML NEB HHN SCH ×5 (02:13→20:33)
[2021-10-14] MEDS: PIPERACILLIN/TAZOBACTAM 3.375G in DEXT 5% WATER 50ML IV SCH ×3 (05:46→22:52)
[2021-10-14] MEDS: METHYLPREDNISOLONE SOD SUCC 125 MG/2 ML VIAL IV SCH ×3 (05:46→22:52)
[2021-10-14 06:45] LABS: CHLORIDE 102 mEq/L (98-107)
[2021-10-14] MEDS: ENOXAPARIN 40MG/0.4ML SYR SUBCUT SCH (08:44)
[2021-10-14] MEDS: FAMOTIDINE 20MG TABLET PO SCH ×2 (08:44→20:44)
[2021-10-14] MEDS: VANCOMYCIN 750 MG PREMIX 150 ML IV SCH ×2 (11:17→20:44)
[2021-10-15] VITALS (12 sets, daily range): BP systolic 102–164; BP diastolic 63–101
[2021-10-15] MEDS: IPRATROPIUM/ALBUTEROL 0.5-3(2.5)MG/3ML NEB HHN SCH ×6 (00:21→20:16)
[2021-10-15] MEDS: ACETYLCYSTEINE 100MG/ML 10% VIAL 4ML INH SCH ×4 (00:22→20:15)
[2021-10-15] MEDS: DILTIAZEM HCL 90MG TABLET PO SCH ×4 (00:33→17:54)
[2021-10-15] MEDS: METHYLPREDNISOLONE SOD SUCC 125 MG/2 ML VIAL IV SCH ×3 (06:12→21:14)
[2021-10-15] MEDS: PIPERACILLIN/TAZOBACTAM 3.375G in DEXT 5% WATER 50ML IV SCH ×2 (06:12→12:59)
[2021-10-15] MEDS: ENOXAPARIN 40MG/0.4ML SYR SUBCUT SCH (09:41)
[2021-10-15] MEDS: VANCOMYCIN 750 MG PREMIX 150 ML IV SCH (09:41)
[2021-10-15] MEDS: FAMOTIDINE 20MG TABLET PO SCH ×2 (09:41→21:15)
[2021-10-15] MEDS ORDERED: LEVOFLOXACIN 500MG TABLET PO NR (16:08)
[2021-10-16] VITALS (12 sets, daily range): BP systolic 125–165; BP diastolic 76–101
[2021-10-16] MEDS: DILTIAZEM HCL 90MG TABLET PO SCH ×5 (00:21→23:29)
[2021-10-16] MEDS: IPRATROPIUM/ALBUTEROL 0.5-3(2.5)MG/3ML NEB HHN SCH ×4 (00:32→21:18)
[2021-10-16] MEDS: METHYLPREDNISOLONE SOD SUCC 125 MG/2 ML VIAL IV SCH (05:00)
[2021-10-16] MEDS: TRAMADOL 50MG TABLET PO PRN (05:43)
[2021-10-16 07:49] LABS: HEMATOCRIT. 43.9 % (42.0-52.0); HEMOGLOBIN. 14.7 g/dL (14.0-18.0); MEAN CORPUSCULAR HEMOGLOBIN 27.9 pg (28.0-32.0); MEAN CORPUSCULAR VOLUME 83.3 fL (80.0-94.0); RED BLOOD CELL COUNT 5.26 mill/uL (4.7-6.1); RED CELL DISTRIBUTION WIDTH 13.5 % (11.6-14.6)
[2021-10-16 07:50] LABS: CHLORIDE 103 mEq/L (98-107)
[2021-10-16 09:47] LABS: PLATELET 249 x1000/uL (130-400)
[2021-10-16 09:50] LABS: PLATELET ESTIMATE NORMAL
[2021-10-16] MEDS: LEVOFLOXACIN 500MG TABLET PO SCH (10:40)
[2021-10-16] MEDS: ENOXAPARIN 40MG/0.4ML SYR SUBCUT SCH (10:41)
[2021-10-16] MEDS: FAMOTIDINE 20MG TABLET PO SCH ×2 (10:41→21:01)
[2021-10-16] MEDS ORDERED: LIDOCAINE HCL/PF 1% 2ML VIAL ONE (11:00)
[2021-10-16 12:23] LABS: BG BASE EXCESS 14.3 mmol/L (-2.0-2.0); BG CARBOXYHEMOGLOBIN 0.3 % (0.5-1.5); BG DEOXYHEMOGLOBIN 0.3 % (0.0-5.0); BG FRACTION INSPIRED OXYGEN 100; BG HCO3 ACT 38.6 mmol/L (22.0-26.0); BG METHEMOGLOBIN 0.4 % (0.0-1.5); BG OXYGEN SATURATION 99.7 % (92.0-98.5); BG PCO2 45.3 mmHg (35.0-45.0); BG PH 7.548 (7.350-7.450); BG PO2 381.9 mmHg (75.0-100.0); BG SAMPLE SITE RIGHT RADIAL; BG TOTAL HEMOGLOBIN 14.8 g/dL (12.0-18.0); BG VENT MODE VENT - AC
[2021-10-16] MEDS: ACETAMINOPHEN 325MG TABLET PO PRN (12:40)
[2021-10-16] MEDS: METHYLPREDNISOLONE SOD SUCC 40 MG/ML VIAL IV SCH ×2 (14:32→21:01)
[2021-10-16] MEDS: ACETYLCYSTEINE 100MG/ML 10% VIAL 4ML INH SCH (15:33)
[2021-10-16] MEDS: GUAIFENESIN 200MG/10ML SUGAR FREE UDC PO SCH (21:01)
[2021-10-17] VITALS (12 sets, daily range): BP systolic 113–162; BP diastolic 70–106
[2021-10-17] MEDS: ACETYLCYSTEINE 100MG/ML 10% VIAL 4ML INH SCH ×3 (00:13→17:45)
[2021-10-17] MEDS: IPRATROPIUM/ALBUTEROL 0.5-3(2.5)MG/3ML NEB HHN SCH ×3 (00:13→08:23)
[2021-10-17] MEDS: GUAIFENESIN 200MG/10ML SUGAR FREE UDC PO SCH ×4 (05:34→22:07)
[2021-10-17] MEDS: METHYLPREDNISOLONE SOD SUCC 40 MG/ML VIAL IV SCH ×3 (05:34→22:07)
[2021-10-17] MEDS: DILTIAZEM HCL 90MG TABLET PO SCH ×4 (05:36→23:24)
[2021-10-17] MEDS: ENOXAPARIN 40MG/0.4ML SYR SUBCUT SCH (09:49)
[2021-10-17] MEDS: FAMOTIDINE 20MG TABLET PO SCH ×2 (09:49→22:07)
[2021-10-17 10:58] LABS: BG BASE EXCESS 9.4 mmol/L (-2.0-2.0); BG CARBOXYHEMOGLOBIN 0.3 % (0.5-1.5); BG DEOXYHEMOGLOBIN 0.6 % (0.0-5.0); BG FRACTION INSPIRED OXYGEN 50; BG HCO3 ACT 35.7 mmol/L (22.0-26.0); BG METHEMOGLOBIN 0.1 % (0.0-1.5); BG OXYGEN SATURATION 99.4 % (92.0-98.5); BG PCO2 54.2 mmHg (35.0-45.0); BG PH 7.437 (7.350-7.450); BG PO2 176.4 mmHg (75.0-100.0); BG SAMPLE SITE RIGHT RADIAL; BG TOTAL HEMOGLOBIN 15.5 g/dL (12.0-18.0); BG VENT MODE T PIECE
[2021-10-17] MEDS: LEVOFLOXACIN 500MG TABLET PO SCH (13:06)
[2021-10-17] MEDS: DILTIAZEM HCL 5MG/ML 5ML VIAL IV PRN (14:28)
[2021-10-17 17:44] LABS: BG BASE EXCESS 9.4 mmol/L (-2.0-2.0); BG CARBOXYHEMOGLOBIN 0.2 % (0.5-1.5); BG DEOXYHEMOGLOBIN 0.8 % (0.0-5.0); BG FRACTION INSPIRED OXYGEN 50; BG HCO3 ACT 32.1 mmol/L (22.0-26.0); BG METHEMOGLOBIN 0.3 % (0.0-1.5); BG OXYGEN SATURATION 99.2 % (92.0-98.5); BG OXYHEMOGLOBIN 98.7 % (94.0-97.0); BG PH 7.556 (7.350-7.450); BG PO2 165.5 mmHg (75.0-100.0); BG SAMPLE SITE RIGHT RADIAL; BG TOTAL HEMOGLOBIN 15.2 g/dL (12.0-18.0); BG VENT MODE VENT - AC
[2021-10-17] MEDS ORDERED: DOCUSATE SODIUM SUGAR FREE 100MG/10ML UDC NG PRN (18:45)
[2021-10-17] MEDS: LORAZEPAM 2MG/ML CPJ IV PRN ×2 (19:06→22:08)
[2021-10-18] VITALS (12 sets, daily range): BP systolic 104–143; BP diastolic 61–90
[2021-10-18] MEDS: GUAIFENESIN 200MG/10ML SUGAR FREE UDC PO SCH ×4 (03:40→20:44)
[2021-10-18] MEDS: DILTIAZEM HCL 90MG TABLET PO SCH ×3 (05:31→17:19)
[2021-10-18] MEDS: METHYLPREDNISOLONE SOD SUCC 40 MG/ML VIAL IV SCH ×3 (05:31→21:48)
[2021-10-18] MEDS: ENOXAPARIN 40MG/0.4ML SYR SUBCUT SCH (08:56)
[2021-10-18] MEDS: FAMOTIDINE 20MG TABLET PO SCH ×2 (08:57→20:45)
[2021-10-18] MEDS ORDERED: METOPROLOL TARTRATE 25MG TABLET PO SCH (10:45)
[2021-10-18] MEDS: LEVOFLOXACIN 500MG TABLET PO SCH (11:14)
[2021-10-18] MEDS: DILTIAZEM HCL 5MG/ML 5ML VIAL IV PRN (11:15)
[2021-10-18 11:28] LABS: CHLORIDE 114 mEq/L (98-107)
[2021-10-18 11:51] LABS: HEMATOCRIT 48.5 % (42.0-52.0); MEAN CORPUSCULAR HEMOGLOBIN 25.8 pg (28.0-32.0); MEAN CORPUSCULAR VOLUME 83.1 fL (80.0-94.0); PLATELET 279 x1000/uL (130-400); RED BLOOD CELL COUNT 5.83 mill/uL (4.7-6.1); RED CELL DISTRIBUTION WIDTH 13.9 % (11.6-14.6)
[2021-10-18] MEDS ORDERED: DILTIAZEM HCL 120MG CAPSULE CD 24HR PO SCH (12:00)
[2021-10-18] MEDS: ENOXAPARIN 30MG/0.3ML SYR SUBCUT SCH (20:44)
[2021-10-18] MEDS: METOPROLOL TARTRATE 25MG TABLET PO SCH (20:47)
[2021-10-19] VITALS (13 sets, daily range): BP systolic 111–142; BP diastolic 73–114
[2021-10-19] MEDS: DILTIAZEM HCL 90MG TABLET PO SCH ×4 (00:42→17:13)
[2021-10-19] MEDS: GUAIFENESIN 200MG/10ML SUGAR FREE UDC PO SCH ×3 (03:19→14:01)
[2021-10-19] MEDS: METHYLPREDNISOLONE SOD SUCC 40 MG/ML VIAL IV SCH ×2 (05:33→14:01)
[2021-10-19] MEDS: FAMOTIDINE 20MG TABLET PO SCH (10:20)
[2021-10-19] MEDS: TRAMADOL 50MG TABLET PO PRN ×2 (10:21→17:14)
[2021-10-19] MEDS: ENOXAPARIN 30MG/0.3ML SYR SUBCUT SCH (10:22)
[2021-10-19] MEDS: METOPROLOL TARTRATE 25MG TABLET PO SCH ×2 (10:22→17:13)
[2021-10-19] MEDS: LEVOFLOXACIN 500MG TABLET PO SCH ×2 (11:12→11:16)
[2021-10-19] MEDS ORDERED: METHYLPREDNISOLONE SOD SUCC 40 MG/ML VIAL IV SCH (21:00)
== END 2021-10-19 19:16 | DRG 871 ==
LOC: ER 19:00 → EDBEDREQ 23:49 → EDBEDREQSVC 23:49 → EDBEDREQTM 23:49 → EDBEDREQSVC 10-12 00:40 → MICUSO 10-12 01:23 → 5EST 10-12 07:44 → MICUSO 10-12 07:44 → 5EST 10-12 09:31
PROVIDERS: ADMIT Internal Medicine; ATTEND Internal Medicine
PROC: 5A1945Z Respiratory Ventilation, 24-96 Consecutive Hours (ICD-10-PCS; principal; 2021-10-16)
DX: A41.59 Other Gram-negative sepsis (principal); J96.21 Acute and chronic respiratory failure with hypoxia; J15.6 Pneumonia due to other Gram-negative bacteria; G92.8 Other toxic encephalopathy; J96.22 Acute and chronic respiratory failure with hypercapnia; E87.1 Hypo-osmolality and hyponatremia; R65.20 Severe sepsis without septic shock; E83.52 Hypercalcemia; E88.09 Other disorders of plasma-protein metabolism, not elsewhere classified; G71.00 Muscular dystrophy, unspecified; I11.0 Hypertensive heart disease with heart failure; I16.0 Hypertensive urgency; I50.9 Heart failure, unspecified; K56.41 Fecal impaction; Y95 Nosocomial condition; D64.9 Anemia, unspecified; F41.9 Anxiety disorder, unspecified; K21.9 Gastro-esophageal reflux disease without esophagitis; I80.8 Phlebitis and thrombophlebitis of other sites; Z86.16 Personal history of COVID-19; Z87.01 Personal history of pneumonia (recurrent); Z93.0 Tracheostomy status
CPT/HCPCS: 36415; 36600; 71045; 71275; 74176; 80048; 80053; 80202; 81003; 82375; 82550; 82553; 82607; 82746; 82805; 83036; 83540; 83550; 83605; 83735; 83880; 84100; 84145; 84443; 84484; 85025; 85027; 85379; 87070; 87077; 87186; 93005; 93306; 93970; 94002; 94640; 99291; A6261; J1650; J2060; J2543; J2920; J2930; J3370; J3490; J7030; J7060; J7608; Q9967